=== PATIENT | male | born 1975 | race Caucasian/White ===

== ENCOUNTER 2016-08-04 07:07 | Day surgery (SDC) | payer MEDICARE ==
[2016-07-31 15:10] VITALS: BMI 33.5
[~2016-08-04 07:07] MED LIST: DEXAMETHASONE SOD PHOSPHATE 10 MG/ML 1 ML VIAL IV ONE; LACTATED RINGERS 1,000 ML IV SCH; LIDOCAINE 1% 20 ML VIAL (10MG/ML) FOR IV START INTRADERMA PRN; ONDANSETRON 4 MG/2 ML VIAL IVP ONE; Pre Op ABX Message 1 EACH MISC MISCELLANE ONE; SCOPOLAMINE 1.5MG/72HR PATCH TRANSDERM ONE
[2016-08-04 07:59] LABS: Glucose,Whole Blood 118 mg/dL (75-99)
[2016-08-04] MEDS ORDERED: BUPIVACAINE (PF) 0.25% 30 ML VIAL SQ ONE ×2 (09:06→09:27)
[2016-08-04] MEDS ORDERED: MIDAZOLAM 2 MG/2 ML VIAL IV ONE (09:08)
[2016-08-04] MEDS ORDERED: NEOSTIGMINE 1 MG/ML 10 ML VIAL ONE (09:13)
[2016-08-04] MEDS ORDERED: GLYCOPYRROLATE 0.2 MG/ML 2 ML VIAL ONE (09:13)
[2016-08-04] MEDS ORDERED: fentaNYL (PF) 50 MCG/ML 2 ML AMP ONE (09:13)
[2016-08-04] MEDS ORDERED: SUCCINYLCHOLINE CHLORIDE 100 MG/5 ML SYR IV ONE (09:13)
[2016-08-04] MEDS ORDERED: MIDAZOLAM 2 MG/2 ML VIAL ONE (09:13)
[2016-08-04] MEDS ORDERED: LIDOCAINE 1% INJ 10MG/ML (20 ML MDV) ONE (09:13)
[2016-08-04] MEDS ORDERED: HYDROmorphone (PF) 1 MG/ML ONE (09:13)
[2016-08-04] MEDS ORDERED: KETOROLAC 30 MG/ML 1 ML VIAL ONE (09:13)
[2016-08-04] MEDS ORDERED: PROPOFOL 10 MG/ML 20 ML VIAL IV ONE (09:13)
[2016-08-04] MEDS ORDERED: ROCURONIUM BROMIDE 10 MG/ML 10 ML VIAL IV ONE (09:13)
[2016-08-04] MEDS ORDERED: PHENYLEPHRINE-0.9% NACL SYG 1 MG/10 ML SYRINGE ONE (09:13)
[2016-08-04] MEDS ORDERED: SODIUM CHLORIDE 0.9% 50 ML with ceFAZolin 2,000 MG IV ONE ×2 (09:23)
[2016-08-04] MEDS ORDERED: LACTATED RINGERS 1,000 ML IV ONE (09:57)
[2016-08-04 10:26] VITALS: TEMP 97.2
[2016-08-04 10:31] LABS: Glucose,Whole Blood 171 mg/dL (75-99)
[2016-08-04 11:08] VITALS: RESP 18
[2016-08-04] MEDS: HYDROmorphone 1 MG/ML 1 ML SYRINGE IVP PRN ×2 (11:16→11:21)
[2016-08-04 13:47] VITALS: BP 122/72; PULSE 76
--- NOTE | 2016-08-17 14:22 | P.OP ---
Date of Procedure: 08/04/16 Preoperative Diagnosis: Chronic cholecystitis with biliary dyskinesia possible cholelithiasis. Postoperative Diagnosis: Same Procedure(s) Performed: Laparoscopic cholecystectomy Anesthesia: DIMITRIS Surgeon: Petr Rankin Estimated Blood Loss (ml): 10 Pathology: other (GB) Condition: stable Disposition: PACU Indications for Procedure: The patient has had multiple episodes of pain in the epigastrium and right upper quadrant with several visits she was the emergency room. Ultrasound showed echogenic foci in the gallbladder consistent with probably adherent stones or polyp. Ejection fraction of 21.8%. His symptoms were felt to be very consistent with gallbladder disease. Laparoscopic cholecystectomy possible open was therefore recommended and informed consent was obtained the procedure having being explained to him including potential complication particular bleeding infection surrounding injury pain continued symptoms etc. Operative Findings: Chronic cholecystitis with the small stones and sludge in the gallbladder. Description of Procedure: After induction of general endotracheal anesthesia the abdominal wall was prepped with Betadine and draped. Local anesthetic Marcaine 0.5% plain was infiltrated into the skin and subcutaneous tissues at the umbilical port site Veress needle was inserted under direct vision with a satisfactory saline drop test. The peritoneal cavity was then inflated with carbon dioxide to pressure approximately 15 mmHg. The needle was replaced with a 5 mm trocar and the laparoscope inserted. 25 mm trochars were placed in the right upper quadrant under direct vision 10 mm trocar in the epigastrium and under direct vision. Visual exploration revealed no other abnormalities. The gallbladder was visualized mildly distended with omental adhesions. These were lysed away. The area of the neck was carefully dissected cystic duct identified school he denies any junction with the gallbladder and common duct well visualized. The cystic duct was then triply clipped and divided as was the cystic artery. The gallbladder dissected from its bed and removed through the epigastric port site. Supernatant infrahepatic spaces were thoroughly irrigated. Hemostasis was good and the field was dry. All trochars were then removed under direct vision. CO2 was evacuated. The fascial incision at the epigastric port site was closed with interrupted 0 Vicryl sutures and skin incisions with 4-0 Monocryl subcuticular sutures and Steri-Strips dressings were applied. All counts were correct.
== END 2016-08-04 13:50 | disposition home or self-care (01) ==
LOC: OR 07:07
PROVIDERS: ATTEND Surgery
DX: K80.10 Calculus of gallbladder with chronic cholecystitis without obstruction (principal); I10 Essential (primary) hypertension; F41.9 Anxiety disorder, unspecified; E11.9 Type 2 diabetes mellitus without complications; Z79.84 Long term (current) use of oral hypoglycemic drugs; Z79.82 Long term (current) use of aspirin; Z79.51 Long term (current) use of inhaled steroids; Z79.899 Other long term (current) drug therapy; Z91.09 Other allergy status, other than to drugs and biological substances; Z88.0 Allergy status to penicillin; Z88.2 Allergy status to sulfonamides; Z91.041 Radiographic dye allergy status
CPT/HCPCS: 47562; 88304; J2250; J1100; J2710; J2405; J2001; J3010; J1885; J1170; J0690; J2370; J0330; J2704

== ENCOUNTER 2016-08-20 09:40 | Observation (INO) | payer MEDICARE ==
[2016-08-20] MEDS ORDERED: PANTOPRAZOLE 40 MG/10 ML VIAL IVP STA (09:52)
[2016-08-20] MEDS ORDERED: RX INFO: IV CONTRAST WAS GIVEN 1 EACH MISC MISCELLANE PRN (09:52)
[2016-08-20] MEDS ORDERED: HYDROmorphone 1 MG/ML 1 ML SYRINGE IVP STA ×2 (09:52→11:05)
--- NOTE | 2016-08-20 10:04 | ED ---
General Adult HPI - General Chief complaint: Chest Pain Stated complaint: chest and abd pain Time Seen by Provider: 08/20/16 09:46 Source: patient, RN notes reviewed Mode of arrival: ambulatory Limitations: no limitations - History of Present Illness Initial comments: Patient is a pleasant 41-year-old male presenting to the emergency Department with abdominal and chest discomfort. Onset was yesterday. Symptoms have progressed since that time. No nausea vomiting. No constipation or diarrhea. No fevers. Discomfort started in the right side of the abdomen however now has moved up to the chest and right arm. Patient did have his gallbladder removed 2 weeks ago and was doing fine up until last night. No history of similar symptoms previously. - Related Data Home Medications Medication Instructions Recorded Confirmed Aspirin EC [Ecotrin Low Dose] 81 mg PO HS 02/28/16 08/20/16 Cholecalciferol [Vitamin D3] 2,000 unit PO HS 02/28/16 08/20/16 Citalopram Hydrobromide [CeleXA] 40 mg PO HS 02/28/16 08/20/16 Diltiazem HCl [Diltiazem ER] 120 mg PO HS 02/28/16 08/20/16 Losartan [Cozaar] 50 mg PO HS 02/28/16 08/20/16 Montelukast [Singulair] 10 mg PO HS 02/28/16 08/20/16 Nitroglycerin Sl Tabs [Nitrostat] 0.4 mg SUBLINGUAL DIRECTED PRN 02/28/1608/05 metFORMIN HCL ER [Glucophage Xr] 500 mg PO HS 02/28/16 08/20/16 Albuterol Inhaler [Ventolin Hfa 4 puff INHALATION RT-Q6H PRN 07/31/16 08/20/16 Inhaler] Ergocalciferol [Vitamin D2] 50,000 unit PO QMONTH 07/31/16 08/20/16 Tamsulosin [Flomax] 0.4 mg PO HS 07/31/16 08/20/16 Allergies Allergy/AdvReac Type Severity Reaction Status Date / Time Iodinated Contrast Media - Allergy high BP Verified 08/20/16 10:16 Oral and Penicillins Allergy Rash/Hives Verified 08/20/16 10:16 Sulfa (Sulfonamide Allergy Unknown Verified 08/20/16 10:16 Antibiotics) Review of Systems ROS Statement: Those systems with pertinent positive or pertinent negative responses have been documented in the HPI. ROS Other: All systems not noted in ROS Statement are negative. Constitutional: Denies: fever, chills Eyes: Denies: eye pain ENT: Denies: ear pain Respiratory: Reports: dyspnea (Mild). Denies: cough Cardiovascular: Reports: chest pain. Denies: palpitations Endocrine: Denies: fatigue Gastrointestinal: Reports: abdominal pain. Denies: vomiting Genitourinary: Denies: dysuria Musculoskeletal: Denies: back pain Skin: Denies: rash Neurological: Denies: weakness Past Medical History Past Medical History: Asthma, Chest Pain / Angina, Diabetes Mellitus, Hyperlipidemia, Hypertension Additional Past Medical History / Comment(s): tachycardia, fatty liver, frequent nighttime urination History of Any Multi-Drug Resistant Organisms: None Reported Past Surgical History: Adenoidectomy, Ear Surgery, Heart Catheterization, Tonsillectomy Additional Past Surgical History / Comment(s): neck fusion, sinus surgery Past Anesthesia/Blood Transfusion Reactions: Previous Problems w/ Anesthesia, Postoperative Nausea & Vomiting (PONV) Additional Past Anesthesia/Blood Transfusion Reaction / Comment(s): aspirated and went into cardiac arrest after neck fusion surgery-anesthesia record obtained and added to chart Past Psychological History: Anxiety Smoking Status: Never smoker Past Alcohol Use History: Occasional Past Drug Use History: None Reported - Past Family History Father Family Medical History: Cancer, Deep Vein Thrombosis (DVT) Mother Family Medical History: Deep Vein Thrombosis (DVT) General Exam Limitations: no limitations General appearance: alert, in no apparent distress Head exam: Present: atraumatic Eye exam: Present: normal appearance, PERRL ENT exam: Present: normal oropharynx Neck exam: Present: normal inspection Respiratory exam: Present: normal lung sounds bilaterally. Absent: chest wall tenderness Cardiovascular Exam: Present: regular rate, normal rhythm Expanded Peripheral pulses: 2+: Dorsalis Pedis (R), Dorsalis Pedis (L) GI/Abdominal exam: Present: soft, tenderness (Mild to moderate tenderness on the right side of the abdomen), normal bowel sounds. Absent: distended, guarding, rebound, rigid, pulsatile mass Extremities exam: Present: normal inspection. Absent: pedal edema, calf tenderness Neurological exam: Present: alert Psychiatric exam: Present: normal affect, normal mood Skin exam: Absent: rash Course Vital Signs 08/20/16 08/20/16 08/20/16 09:42 10:26 11:00 Temperature 97.8 F Pulse Rate 100 90 91 Respiratory 20 17 17 Rate Blood Pressure 134/74 126/65 119/74 O2 Sat by Pulse 98 92 L 93 L Oximetry 08/20/16 11:41 Temperature Pulse Rate 85 Respiratory 17 Rate Blood Pressure 118/71 O2 Sat by Pulse 95 Oximetry EKG Findings - EKG Comments: EKG Findings:: Normal sinus rhythm and 94. Normal intervals. Normal axis. Normal QRS. Normal ST-T. Medical Decision Making - Medical Decision Making Patient reexamined and resting in bed. Symptoms have somewhat improved following second dose of pain medication. Case was discussed in detail with Dr. Daugherty, who will consult for Dr. Leyva. Case was then also discussed with Dr. Rankin, who will admit his patient. - Lab Data Result diagrams: 08/20/16 10:00 08/20/16 10:00 Lab Results 08/20/16 08/20/16 08/20/16 Range/Units 10:00 10:00 10:00 WBC 11.2 H (3.8-10.6) k/uL RBC 5.59 (4.30-5.90) m/uL Hgb 15.5 (13.0-17.5) gm/dL Hct 47.0 (39.0-53.0) % MCV 84.1 (80.0-100.0) fL MCH 27.7 (25.0-35.0) pg MCHC 33.0 (31.0-37.0) g/dL RDW 13.2 (11.5-15.5) % Plt Count 318 (150-450) k/uL Neutrophils % 58 % Lymphocytes % 32 % Monocytes % 5 % Eosinophils % 2 % Basophils % 1 % Neutrophils # 6.5 (1.3-7.7) k/uL Lymphocytes # 3.5 (1.0-4.8) k/uL Monocytes # 0.6 (0-1.0) k/uL Eosinophils # 0.3 (0-0.7) k/uL Basophils # 0.1 (0-0.2) k/uL PT (9.0-12.0) sec INR (<1.1) APTT (22.0-30.0) sec Sodium 141 (137-145) mmol/L Potassium 4.8 (3.5-5.1) mmol/L Chloride 104 (98-107) mmol/L Carbon Dioxide 25 (22-30) mmol/L Anion Gap 12 mmol/L BUN 15 (9-20) mg/dL Creatinine 0.80 (0.66-1.25) mg/dL Est GFR (MDRD) Af Amer >60 (>60 ml/min/1.73 sqM) Est GFR (MDRD) Non-Af >60 (>60 ml/min/1.73 sqM) Glucose 120 H (74-99) mg/dL Calcium 9.3 (8.4-10.2) mg/dL Total Bilirubin 0.6 (0.2-1.3) mg/dL AST 25 (17-59) U/L ALT 55 (21-72) U/L Alkaline Phosphatase 71 (38-126) U/L Total Creatine Kinase 68 (55-170) U/L CK-MB (CK-2) 0.2 (0.0-2.4) ng/mL CK-MB (CK-2) Rel Index 0.3 Troponin I <0.012 (0.000-0.034) ng/mL Total Protein 7.6 (6.3-8.2) g/dL Albumin 4.4 (3.5-5.0) g/dL Amylase 48 (30-110) U/L Lipase 83 (23-300) U/L Urine Color Urine Appearance (Clear) Urine pH (5.0-8.0) Ur Specific Ayden (1.001-1.035) Urine Protein (Negative) Urine Glucose (UA) (Negative) Urine Ketones (Negative) Urine Blood (Negative) Urine Nitrate (Negative) Urine Bilirubin (Negative) Urine Urobilinogen (<2.0) mg/dL Ur Leukocyte Esterase (Negative) 08/20/16 08/20/16 Range/Units 10:00 11:54 WBC (3.8-10.6) k/uL RBC (4.30-5.90) m/uL Hgb (13.0-17.5) gm/dL Hct (39.0-53.0) % MCV (80.0-100.0) fL MCH (25.0-35.0) pg MCHC (31.0-37.0) g/dL RDW (11.5-15.5) % Plt Count (150-450) k/uL Neutrophils % % Lymphocytes % % Monocytes % % Eosinophils % % Basophils % % Neutrophils # (1.3-7.7) k/uL Lymphocytes # (1.0-4.8) k/uL Monocytes # (0-1.0) k/uL Eosinophils # (0-0.7) k/uL Basophils # (0-0.2) k/uL PT 10.2 (9.0-12.0) sec INR 1.0 (<1.1) APTT 25.4 (22.0-30.0) sec Sodium (137-145) mmol/L Potassium (3.5-5.1) mmol/L Chloride (98-107) mmol/L Carbon Dioxide (22-30) mmol/L Anion Gap mmol/L BUN (9-20) mg/dL Creatinine (0.66-1.25) mg/dL Est GFR (MDRD) Af Amer (>60 ml/min/1.73 sqM) Est GFR (MDRD) Non-Af (>60 ml/min/1.73 sqM) Glucose (74-99) mg/dL Calcium (8.4-10.2) mg/dL Total Bilirubin (0.2-1.3) mg/dL AST (17-59) U/L ALT (21-72) U/L Alkaline Phosphatase (38-126) U/L Total Creatine Kinase (55-170) U/L CK-MB (CK-2) (0.0-2.4) ng/mL CK-MB (CK-2) Rel Index Troponin I (0.000-0.034) ng/mL Total Protein (6.3-8.2) g/dL Albumin (3.5-5.0) g/dL Amylase (30-110) U/L Lipase (23-300) U/L Urine Color Yellow Urine Appearance Clear (Clear) Urine pH 5.5 (5.0-8.0) Ur Specific Ayden >1.050 H (1.001-1.035) Urine Protein Trace H (Negative) Urine Glucose (UA) Negative (Negative) Urine Ketones Negative (Negative) Urine Blood Negative (Negative) Urine Nitrate Negative (Negative) Urine Bilirubin Negative (Negative) Urine Urobilinogen <2.0 (<2.0) mg/dL Ur Leukocyte Esterase Negative (Negative) - Radiology Data Radiology results: report reviewed (Computed tomography scan of the chest shows no acute abnormality however is nondiagnostic for pulmonary embolism secondary to contrast bolus. Computed tomography scan abdomen and pelvis does show focal enteritis or ileus.) Disposition Clinical Impression: Ileus, Chest pain Disposition: ADMITTED IP TO THIS HOSP
[2016-08-20] MEDS: SODIUM CHLORIDE 0.9% 500 ML IV STA ×2 (10:05→11:47)
[2016-08-20 10:09] LABS: Basophils # (A) 0.1 k/uL (0-0.2); Basophils % (A) 1 %; CH 28.4; CHCM 33.9; Eosinophils # (A) 0.3 k/uL (0-0.7); Eosinophils % (A) 2 %; HDW 2.54; HGB 15.5 gm/dL (13.0-17.5); Luc # (Auto) 0.24; Luc % (Auto) 2; Lymphocytes # (A) 3.5 k/uL (1.0-4.8); Lymphocytes % (A) 32 %; MCH 27.7 pg (25.0-35.0); MCV 84.1 fL (80.0-100.0); Mean Platelet Volume 6.8; Monocytes # (A) 0.6 k/uL (0-1.0); Monocytes % (A) 5 %; Neutrophils # (A) 6.5 k/uL (1.3-7.7); Neutrophils % (A) 58 %; RBC 5.59 m/uL (4.30-5.90); RDW 13.2 % (11.5-15.5); WBC 11.2 k/uL (3.8-10.6); WBC (Perox) 11.12
[2016-08-20 10:17] LABS: Partial Thromboplastin Time 25.4 sec (22.0-30.0); Prothrombin Time 10.2 sec (9.0-12.0)
[2016-08-20 10:18] LABS: ALT 55 U/L (21-72); AST 25 U/L (17-59); Alkaline Phosphatase 71 U/L (38-126); Amylase 48 U/L (30-110); Anion Gap 12 mmol/L; Blood Urea Nitrogen 15 mg/dL (9-20); Calcium 9.3 mg/dL (8.4-10.2); Carbon Dioxide 25 mmol/L (22-30); Chloride 104 mmol/L (98-107); Glucose 120 mg/dL (74-99); Non-African American GFR(MDRD) >60 (>60 ml/min/1.73 sqM); Potassium 4.8 mmol/L (3.5-5.1); Sodium 141 mmol/L (137-145); Total Bilirubin 0.6 mg/dL (0.2-1.3); Total Protein 7.6 g/dL (6.3-8.2)
[2016-08-20] MEDS ORDERED: ONDANSETRON 4 MG/2 ML VIAL IVP STA (10:28)
[2016-08-20 10:36] LABS: Creatine Kinase 68 U/L (55-170)
[2016-08-20 10:48] LABS: Creatine Kinase MB 0.2 ng/mL (0.0-2.4); Troponin I <0.012 ng/mL (0.000-0.034)
[2016-08-20] MEDS ORDERED: SODIUM CHLORIDE 0.9% 500 ML IV STA (11:05)
--- NOTE | 2016-08-20 11:11 | CT ---
EXAMINATION TYPE: CT angio chest DATE OF EXAM: 08/20/2016 10:59 AM COMPARISON: CTA chest February 25, 2012 HISTORY: SOB, chest pain, Rt sided pain, history of cholecystectomy [address] DLP: 2674 mGycm. Automated Exposure Control for Dose Reduction was Utilized. CONTRAST: CTA scan of the thorax is performed with IV Contrast, patient injected with 100 ml mL of Omnipaque 35 0, pulmonary embolism protocol. MIP Images are created on CT scanner and reviewed. FINDINGS: LUNGS: There is dependent atelectasis and/or consolidation in both lower lobes. No suspicious parench ymal nodule or mass is clearly seen bilaterally. There is no significant pleural effusion or pneumoth orax noted bilaterally. The tracheobronchial tree is patent. MEDIASTINUM: Of this is suboptimal study with contrast noted pooling in SVC and right atrium is some contrast in right ventricle as well as contrast in the left heart system and aorta but no significant amount of contrast in the main pulmonary artery and branches. Evaluation for pulmonary embolism is e ssentially nondiagnostic. There are no greater than 1 cm hilar or mediastinal lymph nodes. No cardi omegaly or pericardial effusion is seen. OTHER: Slight S-shaped scoliotic curvature is redemonstrated. IMPRESSION: 1. Essentially nondiagnostic evaluation for pulmonary embolism. 2. Low lung volumes with dependent atelectasis and/or consolidation in both lower lobes noted.
--- NOTE | 2016-08-20 11:20 | CT ---
EXAMINATION TYPE: CT abdomen pelvis w con DATE OF EXAM: 08/20/2016 10:59 AM COMPARISON: NONE HISTORY: Chest pain, Rt sided abd pain, history of cholecystectomy [address] DLP: 2674 mGycm, Automated Exposure Control for Dose Reduction was Utilized. CONTRAST: CT scan of the abdomen and pelvis is performed without oral but with IV Contrast, patient injected wi th 100 ml mL of Omnipaque 350. FINDINGS: LUNG BASES: Please refer to same day CTA chest report for complete details of lung bases. LIVER/GB: Cholecystectomy clips are noted. PANCREAS: No significant abnormality is seen. SPLEEN: No significant abnormality is seen. ADRENALS: No significant abnormality is seen. KIDNEYS: There is 1.1 cm simple appearing cyst mid pole level right kidney on coronal image 69 BOWEL: Evaluation of bowel is suboptimal due to lack of enteric contrast. There is no suspicious smal l or large bowel dilatation seen. Normal-appearing appendix is noted from the cecum. A slightly promi nent jejunal loop left midabdomen with air-fluid level is noted best on coronal image 24. Consider fo dana enteritis or ileus. PROSTATE/SEMINAL VESICLES: Seminal vesicles and prostate gland are somewhat prominent for patient's a ge. LYMPH NODES: No greater than 1cm abdominal or pelvic lymph nodes are appreciated. OSSEOUS STRUCTURES: There is disc space narrowing with posterior spur disc complex at L5-S1 level. OTHER: No significant additional abnormality is seen. IMPRESSION: Possible left mid abdominal focal enteritis or focal ileus otherwise no significant acute finding is seen to account for patient's clinical symptoms.
[2016-08-20 12:03] LABS: Appearance,Urine Clear (Clear); Bilirubin,Urine Negative (Negative); Glucose,Urine (UA) Negative (Negative); Ketones,Urine Negative (Negative); Leukocyte Esterase,Urine Negative (Negative); Nitrite,Urine Negative (Negative); PH, Urine 5.5 (5.0-8.0); Protein,Urine Trace (Negative); UA Billing (MACRO vs. MICRO) CHEM; Urobilinogen,Urine <2.0 mg/dL (<2.0)
[2016-08-20 12:35] LABS: Specific Gravity,Urine >1.050 (1.001-1.035)
[2016-08-20] MEDS ORDERED: ONDANSETRON 4 MG/2 ML VIAL IVP PRN (13:11)
[2016-08-20] MEDS ORDERED: NALOXONE 0.4 MG/ML 1 ML VIAL IV PRN (13:11)
[2016-08-20] MEDS ORDERED: SODIUM CHLORIDE 0.9% 1,000 ML IV SCH (13:15)
--- NOTE | 2016-08-20 14:25 | NM ---
EXAMINATION TYPE: NM pul vent and perfuse DATE OF EXAM: 08/20/2016 1:58 PM COMPARISON: NONE HISTORY: Dyspnea TECHNIQUE: Utilizing inhalation of 70.7 mCi Tc 99m DTPA aerosol and intravenous injection of 5.5 mCi of Tc 99m MAA, ventilation and perfusion images are acquired post injection in multiple projections. FINDINGS: Normal radiotracer distribution is noted in the lungs. There is no evidence of mismatched defects. IMPRESSION: This examination is low probability for pulmonary embolus.
[2016-08-20] MEDS: HYDROmorphone 1 MG/ML 1 ML SYRINGE IV PRN ×3 (14:29→20:17)
[2016-08-20 17:46] LABS: Creatine Kinase 54 U/L (55-170)
[2016-08-20 17:56] LABS: Creatine Kinase MB <0.2 ng/mL (0.0-2.4); Troponin I <0.012 ng/mL (0.000-0.034)
--- NOTE | 2016-08-20 18:04 | P.GSHP ---
History of Present Illness H&P Date: 08/20/16 Chief Complaint: abdominal pain The patient is a 41-year-old white male who underwent a laparoscopic cholecystectomy about 2 weeks ago. He did really well until love yesterday about 1 PM which is about the 48 hours ago that he developed pain in the right side of the abdomen that progressively worsened. It was fairly vague but increased in intensity and it radiated up to his right chest and shoulder area. Left nausea or vomiting but his appetite is diminished today. The pain is not similar to the gallbladder pain that he had prior to his surgery.. No change in his bowel movements have been fairly good daily. No urinary symptoms. No hematuria no blood in his stool. No leg pain or calf pain. Patient had a chest x-ray CT of the abdomen and pelvis which were essentially negative except for localized area ileus in the epigastric area. No free air was noted and the appendix looked normal. Nuclear part of dictation perfusion scan of the lung showed low probability of prior pulmonary embolism. Chest CTA showed was unremarkable and that it was nondiagnostic.blood work was unremarkable except for WBC of 11,200. Amylase and lipase were normal. Urinalysis was normal. Hemoglobin was good. LFTs were normal. Past history well documented on recent the admission. Positive for angina cardiac disease chest pain and hypertension asthma and bronchitis diabetes mellitus. Medications as listed. ALLERGIES oral contrast the iodine contained. Penicillins and sulfa drugs. Review of systems as above. On examination patient is well-built well-nourished overweight with a BMI of 33.2. He is afebrile. Somewhat restless. Hydration and color good he is anicteric. Head and neck otherwise normal. Heart regular rhythm no murmurs. Lungs are clear. Abdomen shows well-healed the trocar sites. Mild distention but somewhat overweight. Easy to evaluate. Some tenderness in the right side of the abdomen some voluntary guarding but no rebound or rigidity. No mass or organomegaly or hernias noted. No testicular swelling. Extremities normal. tenderness. [employer] intact. Impression right-sided abdominal pain etiology unclear. Localized ileus doubt appendicitis in particular and draped in normal appendix on computed tomography scan. No evidence of perforated viscus with no free air. Medical issues including history of angina asthma and diabetes. Recommendation patient will be admitted for observation placed on IV fluids and close monitoring. We will repeat abdominal films in the morning. 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 Past Anesthesia/Blood Transfusion Reactions: Previous Problems w/ Anesthesia, Postoperative Nausea & Vomiting (PONV) Additional Past Anesthesia/Blood Transfusion Reaction / Comment(s): aspirated and went into cardiac arrest after neck fusion surgery-anesthesia record obtained and added to chart Past Psychological History: Anxiety Additional Psychological History / Comment(s): Pt resides with his spouse. He has 3 children and a grandson living with them. His grandson has a rare form of cancer. He uses a cane at times due to his blindness and has a service dog. Smoking Status: Never smoker Past Alcohol Use History: Occasional Past Drug Use History: None Reported - Past Family History Father Family Medical History: Cancer, Deep Vein Thrombosis (DVT) Mother Family Medical History: Deep Vein Thrombosis (DVT) Medications and Allergies Home Medications Medication Instructions Recorded Confirmed Type Aspirin EC [Ecotrin Low Dose] 81 mg PO HS 02/28/16 08/20/16 History Cholecalciferol [Vitamin D3] 2,000 unit PO HS 02/28/16 08/20/16 History Citalopram Hydrobromide [CeleXA] 40 mg PO HS 02/28/16 08/20/16 History Diltiazem HCl [Diltiazem ER] 120 mg PO HS 02/28/16 08/20/16 History Losartan [Cozaar] 50 mg PO HS 02/28/16 08/20/16 History Montelukast [Singulair] 10 mg PO HS 02/28/16 08/20/16 History Nitroglycerin Sl Tabs [Nitrostat] 0.4 mg SUBLINGUAL DIRECTED PRN 02/28/1608/05 History metFORMIN HCL ER [Glucophage Xr] 500 mg PO HS 02/28/16 08/20/16 History Albuterol Inhaler [Ventolin Hfa 4 puff INHALATION RT-Q6H PRN 07/31/16 08/20/16 History Inhaler] Ergocalciferol [Vitamin D2] 50,000 unit PO QMONTH 07/31/16 08/20/16 History Tamsulosin [Flomax] 0.4 mg PO HS 07/31/16 08/20/16 History Allergies Allergy/AdvReac Type Severity Reaction Status Date / Time Iodinated Contrast Media - Allergy high BP Verified 08/20/16 10:16 Oral and Penicillins Allergy Rash/Hives Verified 08/20/16 10:16 Sulfa (Sulfonamide Allergy Unknown Verified 08/20/16 10:16 Antibiotics) Surgical - Exam Vital Signs Temp Pulse Resp BP Pulse Ox 97.8 F 100 20 134/74 98 08/20/16 09:42 08/20/16 09:42 08/20/16 09:42 08/20/16 09:42 08/20/16 09:42 Results - Labs 08/20/16 10:00 08/20/16 10:00 Abnormal Lab Results - Last 24 Hours (Table) 08/20/16 Range/Units 17:04 Total Creatine Kinase 54 L (55-170) U/L
[2016-08-20] MEDS ORDERED: ALBUTEROL NEBULIZED 2.5 MG/3 ML INHALATION PRN (20:11)
[2016-08-20] MEDS ORDERED: NITROGLYCERIN SL TABS 0.4 MG TAB SUBLINGUAL PRN (20:11)
--- NOTE | 2016-08-20 20:42 | P.CONS ---
History of Present Illness - Reason for Consult Consult date: 08/20/16 Medical management Requesting physician: Petr Rankin - Chief Complaint Abdominal pain/post lap cholecystectomy - History of Present Illness This is a 41-year-old male one of Dr. Leyva with a previous medical history significant for hypertension and hypertensive cardio vascular disease with left ventricular hypertrophy, history of chest pain/angina, diabetes mellitus type 2, hyperlipidemia, retinitis pigmentosa with legal blindness about 16 years ago, obesity with obstructive sleep apnea, esophageal spasm, H. pylori, neurological tremor, fatty liver, patient underwent laparoscopic cholecystectomy that was done by Dr. Rankin on 08/04/2016 that was uneventful and the patient went home patient stated that he has been complaining of increased right lower quadrant abdominal pain that started on the day before yesterday , and now the pain felt as a tightness in his chest with into the right shoulder and all the way to the back associated with some shortness breath , [facility] that was negative for pulmonary embolism, patient had a computed tomography scan of the abdomen and pelvis that showed a mild ileus with no evidence of any appendicitis or perforation, patient was seen and evaluated by Dr. Rankin he was admitted under general surgery service and we were asked to see the patient for medical management. His EKG showed sinus rhythm with nonspecific ST-T wave changes, cardiac enzymes were negative, patient has been seen in the past by cardiology and he sees Dr. Mills regularly, patient did have a stress test prior to her surgical intervention and he did have a heart catheterization about 2013 that was negative for CAD. Review of Systems Constitutional: Denies anorexia, Denies chronic headaches, Denies lethargy, Denies weakness, Denies weight gain, Denies weight loss Eyes: bilateral loss of vision Ears: deny: decreased hearing Ears, nose, mouth and throat: Denies dysphagia, Denies neck lump Cardiovascular: Reports chest pain, Reports high blood pressure, Denies dyspnea on exertion, Denies edema, Denies paroxysmal nocturnal dyspnea, Denies phlebitis , Denies rapid heart beat, Denies shortness of breath, Denies syncope Respiratory: Reports pleurisy, Reports sleep apnea, Denies congestion, Denies cough, Denies cough with sputum, Denies home oxygen, Denies snoring, Denies wheezing Gastrointestinal: Reports abdominal pain, Reports bloating, Reports diarrhea, Reports excessive gas, Reports nausea, Denies heartburn, Denies hematemesis, Denies jaundice, Denies loss of appetite, Denies melena, Denies vomiting Genitourinary: Denies dysuria, Denies nocturia, Denies testicular lump Musculoskeletal: Denies myalgias Musculoskeletal: absent: ankle pain, ankle stiffness, ankle swelling, elbow pain , elbow stiffness, elbow swelling, foot pain, foot stiffness, foot swelling, hand pain, hand stiffness, hand swelling, hip pain, hip stiffness, hip swelling , knee pain, knee stiffness, knee swelling, shoulder pain, shoulder stiffness, shoulder swelling, wrist pain, wrist stiffness, wrist swelling Integumentary: Denies pruritus, Denies rash Neurological: Denies numbness, Denies weakness Psychiatric: Denies anxiety, Denies depression Endocrine: Denies fatigue, Denies weight change Past Medical History Past Medical History: Asthma, Chest Pain / Angina, Diabetes Mellitus, GERD/ Reflux, Hyperlipidemia, Hypertension, Musculoskeletal Disorder, Neurologic Disorder, Pneumonia Additional Past Medical History / Comment(s): Blind bilaterally (sees light only ) x-link retinitis pigmatosis, tachycardia, NIDDM type II, BRAIN-first time using Cpap 08/19/16, esophageal spasms, past H pylori, neurologic tremors, fatty liver , frequent night time urination, sinus problems History of Any Multi-Drug Resistant Organisms: None Reported Past Surgical History: Adenoidectomy, Cholecystectomy, Ear Surgery, Heart Catheterization, Tonsillectomy Additional Past Surgical History / Comment(s): 08/04/16 lap cholecystectomy, cervical fusion C6-C7, sinus surgery, EGD, cardiac cath without intervention. Past Anesthesia/Blood Transfusion Reactions: Previous Problems w/ Anesthesia, Postoperative Nausea & Vomiting (PONV) Additional Past Anesthesia/Blood Transfusion Reaction / Comm: aspirated and went into cardiac arrest after neck fusion surgery-anesthesia record obtained and added to chart Past Psychological History: Anxiety Additional Psychological History / Comment(s): Pt resides with his spouse. He has 3 children and a grandson living with them. His grandson has a rare form of cancer. He uses a cane at times due to his blindness and has a service dog. Smoking Status: Never smoker Past Alcohol Use History: Occasional Past Drug Use History: None Reported - Past Family History Father Family Medical History: Cancer, Diabetes Mellitus (Father is alive his 72-year- old has history of diabetes, CABG, post kidney transplant.), Deep Vein Thrombosis (DVT) Mother Family Medical History: Diabetes Mellitus (Mother 70-year-old has history of diabetes but is type II. She also has history of DVT.), Deep Vein Thrombosis ( DVT) Brother(s) Family Medical History: No Reported History (Patient has one brother no major medical problems) Sister(s) Family Medical History: No Reported History (Patient has 2 sisters no major medical problems) Daughter(s) Family Medical History: No Reported History (Patient has 2 daughters no major medical problems) Son(s) Family Medical History: No Reported History (Patient has 2 sons no major medical problems) Medications and Allergies Home Medications Medication Instructions Recorded Confirmed Type Aspirin EC [Ecotrin Low Dose] 81 mg PO HS 02/28/16 08/20/16 History Cholecalciferol [Vitamin D3] 2,000 unit PO HS 02/28/16 08/20/16 History Citalopram Hydrobromide [CeleXA] 40 mg PO HS 02/28/16 08/20/16 History Diltiazem HCl [Diltiazem ER] 120 mg PO HS 02/28/16 08/20/16 History Losartan [Cozaar] 50 mg PO HS 02/28/16 08/20/16 History Montelukast [Singulair] 10 mg PO HS 02/28/16 08/20/16 History Nitroglycerin Sl Tabs [Nitrostat] 0.4 mg SUBLINGUAL DIRECTED PRN 02/28/1608/05 History metFORMIN HCL ER [Glucophage Xr] 500 mg PO HS 02/28/16 08/20/16 History Albuterol Inhaler [Ventolin Hfa 4 puff INHALATION RT-Q6H PRN 07/31/16 08/20/16 History Inhaler] Ergocalciferol [Vitamin D2] 50,000 unit PO QMONTH 07/31/16 08/20/16 History Tamsulosin [Flomax] 0.4 mg PO HS 07/31/16 08/20/16 History Allergies Allergy/AdvReac Type Severity Reaction Status Date / Time Iodinated Contrast Media - Allergy high BP Verified 08/20/16 10:16 Oral and Penicillins Allergy Rash/Hives Verified 08/20/16 10:16 Sulfa (Sulfonamide Allergy Unknown Verified 08/20/16 10:16 Antibiotics) Physical Exam Vitals: Vital Signs Temp Pulse Pulse Resp BP BP Pulse Ox 08/20/16 18:38 18 08/20/16 18:15 98.4 F 77 18 133/79 95 08/20/16 18:00 97.5 F L 81 18 138/82 96 08/20/16 17:00 97.0 F L 92 18 141/91 96 08/20/16 16:00 18 96 08/20/16 14:00 91 20 125/82 96 Intake and Output 08/20/16 08/20/16 08/20/16 06:59 14:59 22:59 Other: Weight 111.9 kg Patient Weight 08/21/16 06:59 Weight 111.9 kg - Constitutional General appearance: mild distress, obese - EENT Eyes: anicteric sclerae, PERRLA, no ptosis, no scleral icterus ENT: normal oropharynx, no thrush Ears: bilateral: normal - Neck Neck: no lymphadenopathy, normal ROM, no rigidity, no stridor, no thyromegaly Carotids: bilateral: upstroke normal Thyroid: bilateral: normal size - Respiratory Respiratory: bilateral: diminished, negative: dullness, rales, rhonchi, wheezing , prolonged expiration - Cardiovascular Rhythm: regular Heart sounds: normal: S1, S2 Abnormal Heart Sounds: no systolic murmur, no rub, no S3 Gallop, no S4 Gallop, no click - Gastrointestinal General gastrointestinal: normal bowel sounds, soft, tenderness, umbilical hernia, no ventral hernia - Integumentary Integumentary: normal, normal turgor - Musculoskeletal Musculoskeletal: gait normal - Psychiatric Psychiatric: A&O x's 3, appropriate affect, intact judgment & insight Results CBC & Chem 7: 08/20/16 10:00 08/20/16 10:00 Labs: Abnormal Lab Results - Last 24 Hours (Table) 08/20/16 Range/Units 17:04 Total Creatine Kinase 54 L (55-170) U/L Assessment and Plan Plan: Assessment and plan: 1. Abdominal pain/chest pain. Patient had a battery of tests including CT angiography as well as CT abdomen and pelvis did not show an evidence of any acute PE or any acute abscess there is an evidence of minimal ileus post surgery without any evidence of any fluid collection, start the patient on clear liquid diet, continue IV fluid, continue pain management, general surgery evaluation, cardiology evaluation. 2. Post recent laparoscopic cholecystectomy on 08/04/2016. Patient was seen by Dr. Rankin. 3. Hypertension and hypertensive cardiovascular disease. Continue patient on losartan 50 mg orally once every day, Cardizem CD 120 mg orally once every day. 4. Hyperlipidemia. Stable. 5. Diabetes mellitus type 2. Hold metformin for the next 48 hours. Continue sliding scale insulin. 6. History of retinitis pigmentosa. Patient is legally blind 7. Obesity with obstructive sleep apnea. Continue CPAP. 8. Fatty liver. Stable 9. GERD. Continue patient on Protonix 40 mg IV every [address] you [address] Rankin for allowing me to participate in the care of your patient we will follow the patient with you.
[2016-08-20] MEDS ORDERED: ERGOCALCIFEROL 50,000 UNIT CAP PO SCH (21:00)
[2016-08-20 21:53] LABS: Glucose,Whole Blood 89 mg/dL (75-99)
[2016-08-20] MEDS: CITALOPRAM HYDROBROMIDE 20 MG TAB PO SCH (22:22)
[2016-08-20] MEDS: CHOLECALCIFEROL 1,000 UNIT TAB PO SCH (22:23)
[2016-08-20] MEDS: TAMSULOSIN 0.4 MG CAP.ER.24H PO SCH (22:25)
[2016-08-20] MEDS: LOSARTAN 50 MG TAB PO SCH (22:25)
[2016-08-20] MEDS: DILTIAZEM CD 120 MG CAP.ER.24H PO SCH (22:26)
[2016-08-20] MEDS: MONTELUKAST 10 MG TAB PO SCH (22:26)
[2016-08-20] MEDS: ASPIRIN 81 MG CHEW PO SCH (22:26)
[2016-08-20 23:01] LABS: Creatine Kinase 56 U/L (55-170)
[2016-08-20 23:11] LABS: Creatine Kinase MB 0.2 ng/mL (0.0-2.4); Troponin I <0.012 ng/mL (0.000-0.034)
[2016-08-21] MEDS: HYDROmorphone 1 MG/ML 1 ML SYRINGE IV PRN ×7 (00:27→22:18)
[2016-08-21 06:53] LABS: Glucose,Whole Blood 115 mg/dL (75-99)
[2016-08-21 08:14] LABS: Basophils # (A) 0.2 k/uL (0-0.2); Basophils % (A) 2 %; CH 28.3; CHCM 33.2; Eosinophils # (A) 0.2 k/uL (0-0.7); Eosinophils % (A) 2 %; HCT 42.5 % (39.0-53.0); HDW 2.58; Luc # (Auto) 0.18; Luc % (Auto) 2; Lymphocytes # (A) 3.3 k/uL (1.0-4.8); Lymphocytes % (A) 32 %; MCH 28.3 pg (25.0-35.0); MCV 85.7 fL (80.0-100.0); Mean Platelet Volume 7.4; Monocytes # (A) 0.7 k/uL (0-1.0); Monocytes % (A) 6 %; Neutrophils # (A) 5.9 k/uL (1.3-7.7); Neutrophils % (A) 57 %; RBC 4.96 m/uL (4.30-5.90); RDW 13.2 % (11.5-15.5); WBC 10.4 k/uL (3.8-10.6); WBC (Perox) 10.49
[2016-08-21] MEDS: PANTOPRAZOLE 40 MG/10 ML VIAL IV SCH (08:24)
[2016-08-21 08:25] LABS: ALT 53 U/L (21-72); AST 19 U/L (17-59); Alkaline Phosphatase 67 U/L (38-126); Anion Gap 9 mmol/L; Blood Urea Nitrogen 9 mg/dL (9-20); Carbon Dioxide 29 mmol/L (22-30); Chloride 101 mmol/L (98-107); Glucose 108 mg/dL (74-99); Non-African American GFR(MDRD) >60 (>60 ml/min/1.73 sqM); Potassium 4.2 mmol/L (3.5-5.1); Sodium 139 mmol/L (137-145); Total Bilirubin 0.7 mg/dL (0.2-1.3); Total Protein 6.7 g/dL (6.3-8.2)
--- NOTE | 2016-08-21 08:57 | XR ---
EXAMINATION TYPE: XR abdomen complete w decub DATE OF EXAM: 08/21/2016 7:29 AM COMPARISON: Correlation CT 08/20/2016 HISTORY: 41 year-old male right upper quadrant abdominal pain TECHNIQUE: Single view of the chest and 2 views of the abdomen are submitted. FINDINGS: Cholecystectomy clips are present. No evidence for free intraperitoneal air. No differential air-fluid levels or bowel dilatation. Scattered mild to moderate stool within the col on. No suspicious calcifications are seen. Air is seen extending distally into the rectum. IMPRESSION: Nonobstructive bowel gas pattern. No free air. Mild to moderate scattered stool.
[2016-08-21 12:26] LABS: Glucose,Whole Blood 94 mg/dL (75-99)
[2016-08-21] MEDS ORDERED: BISACODYL 10 MG SUPP RECTAL STA (13:01)
--- NOTE | 2016-08-21 13:12 | P.PN ---
Progress Note - Text The patient is stable. Continues to have pain but more so in the chest now. The pain is also in the right upper quadrant radiates up the right chest wall to the shoulder area as well as in the mid chest area. The area of the pain is a lot worse with deep breathing or coughing. He has no appetite. He is afraid to eat. Eating seems to aggravate the pain as well. He thinks he has passed some flatus but no bowel movement since his admission. Denies nausea or vomiting however. On examination the patient remains afebrile. Vitals are stable. Color and hydration is satisfactory. His abdomen is a lot less tender quite soft especially in the right upper quadrant. No guarding or rebound. No mass or organomegaly noted. His abdomen is quite soft with mild tenderness but no guarding or rebound no mass or organomegaly. No evidence of an acute abdomen. The wbc's normal hemoglobin is normal. The LFTs are normal. Amylase and lipase are normal. The abdominal x-ray shows a moderate amount of stool in his colon. No small or large bowel distention or air-fluid levels of significance. No evidence of ileus. No free air. Impression right chest and right upper quadrant pain etiology undetermined. Continues to take analgesics [id number] I will seems to help control the symptoms. No evidence of free air or perforation to explain his symptoms. No significant pulmonary problems identified the although he is symptoms are concerning in that he seems to have a lot of pain with deep breaths. Possible fecal stasis. Recommendation we'll obtain pulmonary consult. Advance diet. Dulcolax suppository. Continue to observe. In view of the continued intractable pain.
[2016-08-21 14:26] VITALS: BMI 33.4
[2016-08-21 17:09] LABS: Glucose,Whole Blood 121 mg/dL (75-99)
--- NOTE | 2016-08-21 17:40 | P.CNPUL ---
History of Present Illness Consult date: 08/21/16 Reason for consult: chest pain Chief complaint: chest pain History of present illness: This is a 41-year-old male who presented to the emergency department complaining of chest pain. The patient underwent laparoscopic cholecystectomy 2 weeks ago. He states he was feeling fine until about 2 days ago when he began having pain in the right side of his abdomen and chest. He states it hurts when he takes a deep breath. He also has pain to palpation. The patient was recently diagnosed with obstructive sleep apnea and is on CPAP therapy. Review of Systems All systems: negative Past Medical History Past Medical History: Asthma, Chest Pain / Angina, Diabetes Mellitus, GERD/ Reflux, Hyperlipidemia, Hypertension, Musculoskeletal Disorder, Neurologic Disorder, Pneumonia Additional Past Medical History / Comment(s): Blind bilaterally (sees light only ) x-link retinitis pigmatosis, tachycardia, NIDDM type II, BRAIN-first time using Cpap 08/19/16, esophageal spasms, past H pylori, neurologic tremors, fatty liver , frequent night time urination, sinus problems History of Any Multi-Drug Resistant Organisms: None Reported Past Surgical History: Adenoidectomy, Cholecystectomy, Ear Surgery, Heart Catheterization, Tonsillectomy Additional Past Surgical History / Comment(s): 08/04/16 lap cholecystectomy, cervical fusion C6-C7, sinus surgery, EGD, cardiac cath without intervention. Past Anesthesia/Blood Transfusion Reactions: Previous Problems w/ Anesthesia, Postoperative Nausea & Vomiting (PONV) Additional Past Anesthesia/Blood Transfusion Reaction / Comment(s): aspirated and went into cardiac arrest after neck fusion surgery-anesthesia record obtained and added to chart Past Psychological History: Anxiety Additional Psychological History / Comment(s): Pt resides with his spouse. He has 3 children and a grandson living with them. His grandson has a rare form of cancer. He uses a cane at times due to his blindness and has a service dog. Smoking Status: Never smoker Past Alcohol Use History: Occasional Past Drug Use History: None Reported - Past Family History Father Family Medical History: Cancer, Diabetes Mellitus (Father is alive his 72-year- old has history of diabetes, CABG, post kidney transplant.), Deep Vein Thrombosis (DVT) Mother Family Medical History: Diabetes Mellitus (Mother 70-year-old has history of diabetes but is type II. She also has history of DVT.), Deep Vein Thrombosis ( DVT) Brother(s) Family Medical History: No Reported History (Patient has one brother no major medical problems) Sister(s) Family Medical History: No Reported History (Patient has 2 sisters no major medical problems) Daughter(s) Family Medical History: No Reported History (Patient has 2 daughters no major medical problems) Son(s) Family Medical History: No Reported History (Patient has 2 sons no major medical problems) Medications and Allergies Home Medications Medication Instructions Recorded Confirmed Type Aspirin EC [Ecotrin Low Dose] 81 mg PO HS 02/28/16 08/20/16 History Cholecalciferol [Vitamin D3] 2,000 unit PO HS 02/28/16 08/20/16 History Citalopram Hydrobromide [CeleXA] 40 mg PO HS 02/28/16 08/20/16 History Diltiazem HCl [Diltiazem ER] 120 mg PO HS 02/28/16 08/20/16 History Losartan [Cozaar] 50 mg PO HS 02/28/16 08/20/16 History Montelukast [Singulair] 10 mg PO HS 02/28/16 08/20/16 History Nitroglycerin Sl Tabs [Nitrostat] 0.4 mg SUBLINGUAL DIRECTED PRN 02/28/1608/05 History metFORMIN HCL ER [Glucophage Xr] 500 mg PO HS 02/28/16 08/20/16 History Albuterol Inhaler [Ventolin Hfa 4 puff INHALATION RT-Q6H PRN 07/31/16 08/20/16 History Inhaler] Ergocalciferol [Vitamin D2] 50,000 unit PO QMONTH 07/31/16 08/20/16 History Tamsulosin [Flomax] 0.4 mg PO HS 07/31/16 08/20/16 History Allergies Allergy/AdvReac Type Severity Reaction Status Date / Time Iodinated Contrast Media - Allergy high BP Verified 08/20/16 10:16 Oral and Penicillins Allergy Rash/Hives Verified 08/20/16 10:16 Sulfa (Sulfonamide Allergy Unknown Verified 08/20/16 10:16 Antibiotics) Physical Exam Osteopathic Statement: *. No significant issues noted on an osteopathic structural exam other than those noted in the History and Physical/Consult. Vitals: Vital Signs Temp Pulse Pulse Resp BP BP Pulse Ox 08/21/16 16:00 99.0 F 73 16 117/74 93 L 08/21/16 12:00 98.7 F 69 18 144/69 93 L 08/21/16 08:00 98.6 F 76 18 110/71 93 L 08/21/16 04:00 85 16 108/86 95 08/21/16 00:00 93 16 129/80 98 08/20/16 20:00 77 16 08/20/16 18:38 18 08/20/16 18:15 98.4 F 77 18 133/79 95 08/20/16 18:00 97.5 F L 81 18 138/82 96 Intake and Output 08/21/16 08/21/16 08/21/16 06:59 14:59 22:59 Intake Total 364 Balance 364 Intake: Oral 364 Other: Voiding Method Toilet Toilet # Voids 1 1 Weight 111.9 kg 111.9 kg Patient Weight 08/22/16 06:59 Weight 111.9 kg Gen.: Patient is alert and oriented 3, no acute distress Cardiovascular: Regular rate and rhythm, S1/S2 Lungs: Clear to auscultation bilaterally no wheezes rales or rhonchi Abdomen: Soft nontender nondistended positive bowel sounds Extremities: No edema Results - Laboratory Findings CBC and BMP: 08/21/16 07:35 08/21/16 07:33 PT/INR, D-dimer PT 10.2 sec (9.0-12.0) 08/20/16 10:00 INR 1.0 (<1.1) 08/20/16 10:00 Abnormal lab findings: Abnormal Labs 08/20/16 08/21/16 08/21/16 17:04 06:52 07:33 Glucose 108 H POC Glucose (mg/dL) 115 H Total Creatine Kinase 54 L 08/21/16 17:06 Glucose POC Glucose (mg/dL) 121 H Total Creatine Kinase - Diagnostic Findings Chest x-ray: report reviewed, image reviewed CT scan - chest: report reviewed, image reviewed Assessment and Plan Plan: Acute chest and abdominal pain, etiology unclear No evidence of pulmonary embolism Possible pleuritic chest pain Bibasilar atelectasis Obstructive sleep apnea, on CPAP therapy Recent lap is A cholecystectomy Hypertension Hypertensive cardiovascular disease Dyslipidemia Diabetes mellitus type 2 History of retinitis pigmentosa Obesity Fatty liver disease GERD No evidence of pulmonary embolism, no need for anticoagulation from pulmonary standpoint Will try prednisone for possible pleuritic-type pain Pain control IV fluid hydration Patient to bring in CPAP from home Continue Singulair Albuterol as needed GI and DVT prophylaxis Incentive spirometry, pulmonary hygiene
[2016-08-21] MEDS: predniSONE 20 MG TAB PO SCH (18:05)
[2016-08-21] MEDS: HEPARIN SODIUM,PORCINE 5,000 UNIT/ML 1 ML VIAL SQ SCH ×2 (18:05→22:18)
[2016-08-21 20:16] LABS: Glucose,Whole Blood 117 mg/dL (75-99)
[2016-08-21] MEDS: CHOLECALCIFEROL 1,000 UNIT TAB PO SCH (20:29)
[2016-08-21] MEDS: CITALOPRAM HYDROBROMIDE 20 MG TAB PO SCH (20:30)
[2016-08-21] MEDS: ASPIRIN 81 MG CHEW PO SCH (20:30)
[2016-08-21] MEDS: MONTELUKAST 10 MG TAB PO SCH (20:31)
[2016-08-21] MEDS: TAMSULOSIN 0.4 MG CAP.ER.24H PO SCH (20:31)
[2016-08-21] MEDS: LOSARTAN 50 MG TAB PO SCH (20:31)
[2016-08-21] MEDS: DILTIAZEM CD 120 MG CAP.ER.24H PO SCH (20:31)
[2016-08-22 07:09] LABS: Glucose,Whole Blood 119 mg/dL (75-99)
[2016-08-22 07:45] VITALS: BP 110/69; PULSE 81; RESP 16; TEMP 98.2
[2016-08-22] MEDS: PANTOPRAZOLE 40 MG/10 ML VIAL IV SCH (09:06)
[2016-08-22] MEDS: HEPARIN SODIUM,PORCINE 5,000 UNIT/ML 1 ML VIAL SQ SCH (09:06)
[2016-08-22] MEDS: predniSONE 20 MG TAB PO SCH (09:07)
[2016-08-22] MEDS: HYDROmorphone 1 MG/ML 1 ML SYRINGE IV PRN (10:37)
--- NOTE | 2016-08-22 11:54 | P.PN ---
Subjective This is a 41-year-old male one of Dr. Leyva with a previous medical history significant for hypertension and hypertensive cardio vascular disease with left ventricular hypertrophy, history of chest pain/angina, diabetes mellitus type 2, hyperlipidemia, retinitis pigmentosa with legal blindness about 16 years ago, obesity with obstructive sleep apnea, esophageal spasm, H. pylori, neurological tremor, fatty liver, patient underwent laparoscopic cholecystectomy that was done by Dr. Rankin on 08/04/2016 that was uneventful and the patient went home patient stated that he has been complaining of increased right lower quadrant abdominal pain that started on the day before yesterday , and now the pain felt as a tightness in his chest with into the right shoulder and all the way to the back associated with some shortness breath , [facility] that was negative for pulmonary embolism, patient had a computed tomography scan of the abdomen and pelvis that showed a mild ileus with no evidence of any appendicitis or perforation, patient was seen and evaluated by Dr. Rankin he was admitted under general surgery service and we were asked to see the patient for medical management. His EKG showed sinus rhythm with nonspecific ST-T wave changes, cardiac enzymes were negative, patient has been seen in the past by cardiology and he sees Dr. Mills regularly, patient did have a stress test prior to her surgical intervention and he did have a heart catheterization about 2013 that was negative for CAD. 2/: Patient continues to complain of chest pain most severe with deep inspiration. He states he is not any better since he arrived. Consult added for Dr. Rodríguez. Troponins have been negative on 3 draws. Objective - Vital Signs Vital signs: Vital Signs Temp 98.7 F 08/21/16 12:00 Pulse 69 08/21/16 12:00 Resp 18 08/21/16 12:00 BP 144/69 08/21/16 12:00 Pulse Ox 93 L 08/21/16 12:00 Intake & Output 08/20/16 08/21/16 08/21/16 18:59 06:59 18:59 Weight 111.9 kg 111.9 kg Other: Voiding Method Toilet # Voids 1 - Exam General appearance: mild distress, obese - EENT Eyes: anicteric sclerae, PERRLA, no ptosis, no scleral icterus ENT: normal oropharynx, no thrush Ears: bilateral: normal - Neck Neck: no lymphadenopathy, normal ROM, no rigidity, no stridor, no thyromegaly Carotids: bilateral: upstroke normal Thyroid: bilateral: normal size - Respiratory Respiratory: bilateral: diminished, negative: dullness, rales, rhonchi, wheezing , prolonged expiration - Cardiovascular Rhythm: regular Heart sounds: normal: S1, S2 Abnormal Heart Sounds: no systolic murmur, no rub, no S3 Gallop, no S4 Gallop, no click - Gastrointestinal General gastrointestinal: normal bowel sounds, soft, tenderness, umbilical hernia, no ventral hernia - Integumentary Integumentary: normal, normal turgor - Musculoskeletal Musculoskeletal: gait normal - Psychiatric Psychiatric: A&O x's 3, appropriate affect, intact judgment & insight - Labs CBC & Chem 7: 08/21/16 07:35 08/21/16 07:33 Labs: Abnormal Lab Results - Last 24 Hours (Table) 08/20/16 08/21/16 08/21/16 Range/Units 17:04 06:52 07:33 Glucose 108 H (74-99) mg/dL POC Glucose (mg/dL) 115 H (75-99) mg/dL Total Creatine Kinase 54 L (55-170) U/L Assessment and Plan Plan: 1. Abdominal pain and chest pain. Patient had a battery of tests including CT angiography as well as CT abdomen and pelvis did not show an evidence of any acute PE or any acute abscess there is an evidence of minimal ileus post surgery without any evidence of any fluid collection, start the patient on clear liquid diet, continue IV fluid, continue pain management, general surgery evaluation, cardiology evaluation. Consult with Dr. Rodríguez added. 2. Post recent laparoscopic cholecystectomy on 08/04/2016. Patient was seen by Dr. Rankin. 3. Hypertension and hypertensive cardiovascular disease. Continue patient on losartan 50 mg orally once every day, Cardizem CD 120 mg orally once every day. 4. Hyperlipidemia. Stable. 5. Diabetes mellitus type 2. Hold metformin for the next 48 hours. Continue sliding scale insulin. 6. History of retinitis pigmentosa. Patient is legally blind 7. Obesity with obstructive sleep apnea. Continue CPAP. 8. Fatty liver. Stable 9. GERD. Continue patient on Protonix 40 mg IV every 24 hours. Discharge plan: Return home Impression and plan of care have been directed as dictated by the signing physician. Dary Butler nurse practitioner acting as scribe for signing physician. Time with Patient: Greater than 30
--- NOTE | 2016-08-22 16:10 | P.PN ---
Subjective Principal diagnosis: Chest pain Patient seen and examined. Patient states he is feeling much better today. His chest pain and abdominal pain are better. He states his breathing is good. Objective - Vital Signs Vital signs: Vital Signs Temp 98.2 F 08/22/16 07:43 Pulse 81 08/22/16 08:00 Resp 16 08/22/16 08:00 BP 110/69 08/22/16 07:43 Pulse Ox 95 08/22/16 07:43 Intake & Output 08/21/16 08/22/16 08/22/16 18:59 06:59 18:59 Intake Total 364 Balance 364 Weight 111.9 kg Intake: Oral 364 Other: Voiding Method Toilet Toilet Toilet # Voids 1 1 2 - Exam Gen.: Patient is alert and oriented 3, no acute distress Cardiovascular: Regular rate and rhythm, S1/S2 Lungs: Clear to auscultation bilaterally no wheezes rales or rhonchi Abdomen: Soft nontender nondistended positive bowel sounds Extremities: No edema - Labs CBC & Chem 7: 08/21/16 07:35 08/21/16 07:33 Labs: Abnormal Lab Results - Last 24 Hours (Table) 08/21/16 08/21/16 08/22/16 Range/Units 17:06 20:05 07:07 POC Glucose (mg/dL) 121 H 117 H 119 H (75-99) mg/dL Assessment and Plan Plan: Acute chest and abdominal pain, etiology unclear No evidence of pulmonary embolism Possible pleuritic chest pain Bibasilar atelectasis Obstructive sleep apnea, on CPAP therapy Recent lap is A cholecystectomy Hypertension Hypertensive cardiovascular disease Dyslipidemia Diabetes mellitus type 2 History of retinitis pigmentosa Obesity Fatty liver disease GERD No evidence of pulmonary embolism, no need for anticoagulation from pulmonary standpoint Will try prednisone for possible pleuritic-type pain Pain control IV fluid hydration Patient to bring in CPAP from home Continue Singulair Albuterol as needed GI and DVT prophylaxis Incentive spirometry, pulmonary hygiene Continue Prednisone 20mg daily x 7 days OK to DC from pulmonary standpoint.
--- NOTE | 2016-09-07 10:05 | P.DS ---
Providers Date of admission: 08/20/16 13:11 Attending physician: Petr Rankin Consults: Dr. Daugherty and Dr. Barrett Primary care physician: Gil Leyva Plan - Discharge Summary Discharge Medication List Aspirin EC [Ecotrin Low Dose] 81 mg PO HS 02/28/16 [History] Cholecalciferol [Vitamin D3] 2,000 unit PO HS 02/28/16 [History] Citalopram Hydrobromide [CeleXA] 40 mg PO HS 02/28/16 [History] Diltiazem HCl [Diltiazem ER] 120 mg PO HS 02/28/16 [History] Losartan [Cozaar] 50 mg PO HS 02/28/16 [History] Montelukast [Singulair] 10 mg PO HS 02/28/16 [History] Nitroglycerin Sl Tabs [Nitrostat] 0.4 mg SUBLINGUAL DIRECTED PRN 02/28/16 [ History] metFORMIN HCL ER [Glucophage Xr] 500 mg PO HS 02/28/16 [History] Albuterol Inhaler [Ventolin Hfa Inhaler] 4 puff INHALATION RT-Q6H PRN 07/31/16 [ History] Ergocalciferol [Vitamin D2] 50,000 unit PO QMONTH 07/31/16 [History] Tamsulosin [Flomax] 0.4 mg PO HS 07/31/16 [History] Follow up Appointment(s)/Referral(s): Petr Rankin MD [STAFF PHYSICIAN] - 1 Week Gil Leyva MD [Primary Care Provider] - 1 Week Activity/Diet/Wound Care/Special Instructions: low fat diet Discharge Disposition: HOME SELF-CARE
== END 2016-08-22 11:45 | disposition home or self-care (01) ==
LOC: EC 09:40 → 3OBS 13:11
PROVIDERS: ADMIT Surgery; ATTEND Surgery
DX: R10.11 Right upper quadrant pain (principal); R07.89 Other chest pain; E11.9 Type 2 diabetes mellitus without complications; I11.9 Hypertensive heart disease without heart failure; I20.9 Angina pectoris, unspecified; E66.9 Obesity, unspecified; Z68.33 Body mass index [BMI] 33.0-33.9, adult; E78.5 Hyperlipidemia, unspecified; F41.9 Anxiety disorder, unspecified; G47.33 Obstructive sleep apnea (adult) (pediatric); H54.8 Legal blindness, as defined in USA; J45.909 Unspecified asthma, uncomplicated; K21.9 Gastro-esophageal reflux disease without esophagitis; K56.7 Ileus, unspecified; Z79.4 Long term (current) use of insulin; Z86.74 Personal history of sudden cardiac arrest; Z90.49 Acquired absence of other specified parts of digestive tract; K76.0 Fatty (change of) liver, not elsewhere classified; Z79.84 Long term (current) use of oral hypoglycemic drugs; Z79.82 Long term (current) use of aspirin; Z79.899 Other long term (current) drug therapy; Z88.0 Allergy status to penicillin; Z88.2 Allergy status to sulfonamides; Z91.041 Radiographic dye allergy status
CPT/HCPCS: 36415; 93005; 80053 ×2; 82150; 82550; 82553; 83690; 84484; 85025 ×2; 85610; 85730; 81003; 74020; 71275; 74177; 78582; 99285; 96374; 96375 ×2; 96376; 96361; G0378 ×3; A9540; A9567; J1644 ×2; Q9967; J2405; J1170 ×3; J7512 ×2; C9113 ×3; 96372

== ENCOUNTER 2017-06-19 22:08 | Emergency (ER) | payer MEDICARE ==
[2017-06-19] MEDS ORDERED: HYDROmorphone 1 MG/ML 1 ML SYRINGE IVP STA (22:23)
--- NOTE | 2017-06-19 22:25 | ED ---
SOB HPI - General Chief Complaint: Shortness of Breath Stated Complaint: FARZANA Time Seen by Provider: 06/19/17 22:20 Source: patient, RN notes reviewed Mode of arrival: wheelchair Limitations: no limitations - History of Present Illness Initial Comments: This is a 41-year-old male with a history of heart problems also history of pneumonia and a collapsed lung in the past who does not smoke who was in a car waiting for his a lot of a local store when he started developing chest pain it was midsternal mid and low sternal sharp in nature severe. He states is very short of breath has not had any fevers chills nausea vomiting sweats or other symptoms. No trauma is reported. MD Complaint: shortness of breath, chest pain - Related Data Home Medications Medication Instructions Recorded Confirmed Aspirin EC [Ecotrin Low Dose] 81 mg PO HS 02/28/16 06/19/17 Cholecalciferol [Vitamin D3] 2,000 unit PO HS 02/28/16 06/19/17 Citalopram Hydrobromide [CeleXA] 40 mg PO HS 02/28/16 06/19/17 Diltiazem HCl [Diltiazem ER] 120 mg PO HS 02/28/16 06/19/17 Losartan [Cozaar] 50 mg PO HS 02/28/16 06/19/17 Montelukast [Singulair] 10 mg PO HS 02/28/16 06/19/17 Nitroglycerin Sl Tabs [Nitrostat] 0.4 mg SUBLINGUAL DIRECTED PRN 02/28/1608/05 Albuterol Inhaler [Ventolin Hfa 4 puff INHALATION RT-Q6H PRN 07/31/16 06/19/17 Inhaler] Tamsulosin [Flomax] 0.4 mg PO HS 07/31/16 06/19/17 Previous Rx's Medication Instructions Recorded Albuterol Inhaler [Ventolin Hfa 2 puff INHALATION Q6HR PRN #1 06/20/17 Inhaler] inhaler Ibuprofen 800 mg PO Q6HR PRN #20 tablet 06/20/17 predniSONE 20 mg PO BID #10 tab 06/20/17 Allergies Allergy/AdvReac Type Severity Reaction Status Date / Time Iodinated Contrast- Oral and Allergy high BP Verified 06/19/17 22:45 IV Dye [Iodinated Contrast Media - Oral and] Penicillins Allergy Rash/Hives Verified 06/19/17 22:45 Sulfa (Sulfonamide Allergy Unknown Verified 06/19/17 22:45 Antibiotics) Review of Systems ROS Statement: Those systems with pertinent positive or pertinent negative responses have been documented in the HPI. ROS Other: All systems not noted in ROS Statement are negative. 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 Past Anesthesia/Blood Transfusion Reactions: Previous Problems w/ Anesthesia, Postoperative Nausea & Vomiting (PONV) Additional Past Anesthesia/Blood Transfusion Reaction / Comment(s): aspirated and went into cardiac arrest after neck fusion surgery-anesthesia record obtained and added to chart Past Psychological History: Anxiety Smoking Status: Never smoker Past Alcohol Use History: Occasional Past Drug Use History: None Reported - Past Family History Father Family Medical History: Cancer, Diabetes Mellitus (Father is alive his 72-year- old has history of diabetes, CABG, post kidney transplant.), Deep Vein Thrombosis (DVT) Mother Family Medical History: Diabetes Mellitus (Mother 70-year-old has history of diabetes but is type II. She also has history of DVT.), Deep Vein Thrombosis ( DVT) Brother(s) Family Medical History: No Reported History (Patient has one brother no major medical problems) Sister(s) Family Medical History: No Reported History (Patient has 2 sisters no major medical problems) Daughter(s) Family Medical History: No Reported History (Patient has 2 daughters no major medical problems) Son(s) Family Medical History: No Reported History (Patient has 2 sons no major medical problems) General Exam - General Exam Comments Initial Comments: This is a well-developed well-nourished awake alert oriented times 3 male Limitations: no limitations General appearance: alert, anxious, in distress Head exam: Present: atraumatic, normocephalic, normal inspection Eye exam: Present: normal appearance, PERRL, EOMI. Absent: scleral icterus, conjunctival injection, periorbital swelling ENT exam: Present: normal exam, mucous membranes moist Neck exam: Present: normal inspection. Absent: tenderness, meningismus, lymphadenopathy Respiratory exam: Present: decreased breath sounds. Absent: respiratory distress, wheezes, rales, rhonchi, stridor Cardiovascular Exam: Present: normal rhythm, tachycardia, normal heart sounds. Absent: systolic murmur, diastolic murmur, rubs, gallop, clicks GI/Abdominal exam: Present: soft, normal bowel sounds. Absent: distended, tenderness, guarding, rebound, rigid, bruit, pulsatile mass, hernia Extremities exam: Present: normal inspection, full ROM, normal capillary refill. Absent: tenderness, pedal edema, joint swelling, calf tenderness Back exam: Present: normal inspection Neurological exam: Present: alert, oriented X3, CN II-XII intact Psychiatric exam: Present: normal affect, anxious Skin exam: Present: warm, dry, intact, normal color. Absent: rash Course Vital Signs 06/19/17 06/19/17 06/19/17 22:11 23:35 23:36 Temperature 98.4 F Pulse Rate 114 H 112 H Respiratory 24 20 Rate Blood Pressure 138/101 O2 Sat by Pulse 96 Oximetry 06/19/17 06/20/17 23:46 00:14 Temperature Pulse Rate 116 H 105 H Respiratory 23 Rate Blood Pressure 126/71 O2 Sat by Pulse 95 Oximetry - Reevaluation(s) Reevaluation #1: 06/20/17 00:20 Reevaluation after the initial treatment patient did have some increased aeration slight chest pain Medical Decision Making - Medical Decision Making Reevaluation revealed patient markedly increased aeration he still has tenderness palpation on the right costal sternal margin consistent with osteochondritis. The patient will be discharged on appropriate medication after IV meds are given. His Ventolin may be he'll get a prescription for developing an inhaler. - Lab Data Result diagrams: 06/19/17 22:30 06/19/17 22:30 Lab Results 06/19/17 06/19/17 06/19/17 Range/Units 22:30 22:30 22:30 WBC 12.9 H (3.8-10.6) k/uL RBC 5.62 (4.30-5.90) m/uL Hgb 15.6 (13.0-17.5) gm/dL Hct 46.5 (39.0-53.0) % MCV 82.9 (80.0-100.0) fL MCH 27.7 (25.0-35.0) pg MCHC 33.5 (31.0-37.0) g/dL RDW 14.9 (11.5-15.5) % Plt Count 300 (150-450) k/uL Neutrophils % 56 % Lymphocytes % 33 % Monocytes % 6 % Eosinophils % 3 % Basophils % 1 % Neutrophils # 7.2 (1.3-7.7) k/uL Lymphocytes # 4.2 (1.0-4.8) k/uL Monocytes # 0.8 (0-1.0) k/uL Eosinophils # 0.4 (0-0.7) k/uL Basophils # 0.1 (0-0.2) k/uL D-Dimer (<0.60) mg/L FEU Sodium 140 (137-145) mmol/L Potassium 3.8 (3.5-5.1) mmol/L Chloride 102 (98-107) mmol/L Carbon Dioxide 23 (22-30) mmol/L Anion Gap 15 mmol/L BUN 14 (9-20) mg/dL Creatinine 0.90 (0.66-1.25) mg/dL Est GFR (MDRD) Af Amer >60 (>60 ml/min/1.73 sqM) Est GFR (MDRD) Non-Af >60 (>60 ml/min/1.73 sqM) Glucose 109 H (74-99) mg/dL Plasma Lactic Acid Rolando (0.7-2.0) mmol/L Calcium 9.3 (8.4-10.2) mg/dL Magnesium 1.8 (1.6-2.3) mg/dL Total Bilirubin 0.5 (0.2-1.3) mg/dL AST 28 (17-59) U/L ALT 65 (21-72) U/L Alkaline Phosphatase 76 (38-126) U/L Total Creatine Kinase 225 H (55-170) U/L CK-MB (CK-2) 0.7 (0.0-2.4) ng/mL CK-MB (CK-2) Rel Index 0.3 Total Protein 7.3 (6.3-8.2) g/dL Albumin 4.4 (3.5-5.0) g/dL 06/19/17 06/19/17 Range/Units 22:30 22:30 WBC (3.8-10.6) k/uL RBC (4.30-5.90) m/uL Hgb (13.0-17.5) gm/dL Hct (39.0-53.0) % MCV (80.0-100.0) fL MCH (25.0-35.0) pg MCHC (31.0-37.0) g/dL RDW (11.5-15.5) % Plt Count (150-450) k/uL Neutrophils % % Lymphocytes % % Monocytes % % Eosinophils % % Basophils % % Neutrophils # (1.3-7.7) k/uL Lymphocytes # (1.0-4.8) k/uL Monocytes # (0-1.0) k/uL Eosinophils # (0-0.7) k/uL Basophils # (0-0.2) k/uL D-Dimer 0.42 (<0.60) mg/L FEU Sodium (137-145) mmol/L Potassium (3.5-5.1) mmol/L Chloride (98-107) mmol/L Carbon Dioxide (22-30) mmol/L Anion Gap mmol/L BUN (9-20) mg/dL Creatinine (0.66-1.25) mg/dL Est GFR (MDRD) Af Amer (>60 ml/min/1.73 sqM) Est GFR (MDRD) Non-Af (>60 ml/min/1.73 sqM) Glucose (74-99) mg/dL Plasma Lactic Acid Rolando 2.3 H* (0.7-2.0) mmol/L Calcium (8.4-10.2) mg/dL Magnesium (1.6-2.3) mg/dL Total Bilirubin (0.2-1.3) mg/dL AST (17-59) U/L ALT (21-72) U/L Alkaline Phosphatase (38-126) U/L Total Creatine Kinase (55-170) U/L CK-MB (CK-2) (0.0-2.4) ng/mL CK-MB (CK-2) Rel Index Total Protein (6.3-8.2) g/dL Albumin (3.5-5.0) g/dL - EKG Data -: EKG Interpreted by Me EKG shows normal: sinus rhythm (Sinus tachycardia rate of 113 QRS 80. Interval 124 QT since QTC of 332/455 low-voltage no acute ST-T wave changes.) - Radiology Data Radiology results: report reviewed (I did review the imaging and reports no acute findings.), image reviewed Disposition Clinical Impression: Acute bronchospasm, Costochondritis, acute Disposition: HOME SELF-CARE Condition: Good Instructions: Bronchospasm (ED), Costochondritis (ED), Chest Wall Pain (ED) Prescriptions: Albuterol Inhaler [Ventolin Hfa Inhaler] 2 puff INHALATION Q6HR PRN #1 inhaler PRN Reason: Dyspnea Ibuprofen 800 mg PO Q6HR PRN #20 tablet PRN Reason: Pain predniSONE 20 mg PO BID #10 tab Referrals: Gil Leyva MD [Primary Care Provider] - 1-2 days
[2017-06-19] MEDS ORDERED: LORazepam 2 MG/ML INJ IV STA (22:34)
--- NOTE | 2017-06-19 22:36 | XR ---
EXAMINATION TYPE: XR chest 1V portable DATE OF EXAM: 06/19/2017 COMPARISON: 02/28/2016 HISTORY: Difficulty breathing TECHNIQUE: Single frontal view of the chest is obtained. FINDINGS: There is some linear density at the left lung base. There is no heart failure. There are c hest leads. The right lung is clear. There is a poor respiration. IMPRESSION: There is some atelectasis at the left lung base. Inspiration is worse than last exam. No heart failure.
[2017-06-19 22:52] LABS: Basophils # (A) 0.1 k/uL (0-0.2); Basophils % (A) 1 %; CH 28.2; CHCM 34.2; Eosinophils # (A) 0.4 k/uL (0-0.7); Eosinophils % (A) 3 %; HCT 46.5 % (39.0-53.0); HDW 2.53; HGB 15.6 gm/dL (13.0-17.5); Luc # (Auto) 0.23; Luc % (Auto) 2; Lymphocytes # (A) 4.2 k/uL (1.0-4.8); Lymphocytes % (A) 33 %; MCH 27.7 pg (25.0-35.0); MCHC 33.5 g/dL (31.0-37.0); MCV 82.9 fL (80.0-100.0); Mean Platelet Volume 7.7; Monocytes # (A) 0.8 k/uL (0-1.0); Monocytes % (A) 6 %; Neutrophils # (A) 7.2 k/uL (1.3-7.7); Neutrophils % (A) 56 %; RBC 5.62 m/uL (4.30-5.90); RDW 14.9 % (11.5-15.5); WBC 12.9 k/uL (3.8-10.6); WBC (Perox) 12.43
[2017-06-19 23:02] LABS: ALT 65 U/L (21-72); AST 28 U/L (17-59); Alkaline Phosphatase 76 U/L (38-126); Anion Gap 15 mmol/L; Blood Urea Nitrogen 14 mg/dL (9-20); Calcium 9.3 mg/dL (8.4-10.2); Carbon Dioxide 23 mmol/L (22-30); Chloride 102 mmol/L (98-107); Glucose 109 mg/dL (74-99); Magnesium 1.8 mg/dL (1.6-2.3); Non-African American GFR(MDRD) >60 (>60 ml/min/1.73 sqM); Potassium 3.8 mmol/L (3.5-5.1); Sodium 140 mmol/L (137-145); Total Bilirubin 0.5 mg/dL (0.2-1.3); Total Protein 7.3 g/dL (6.3-8.2)
[2017-06-19] MEDS ORDERED: SODIUM CHLORIDE 0.9% 2,000 ML IV ONE (23:03)
[2017-06-19 23:23] LABS: Creatine Kinase MB 0.7 ng/mL (0.0-2.4)
[2017-06-19] MEDS ORDERED: IPRATROPIUM-ALBUTEROL 3 ML NEB INHALATION STA (23:29)
[2017-06-20] MEDS ORDERED: methylPREDNISolone SOD SUCCI 125 MG/2 ML VIAL IV STA (00:19)
[2017-06-20] MEDS ORDERED: KETOROLAC 30 MG/ML 1 ML VIAL IVP STA (00:19)
[2017-06-20] MEDS ORDERED: HYDROmorphone 2 MG/ML 1 ML SYRINGE IVP STA (00:46)
[2017-06-20] MEDS ORDERED: HYDROmorphone 1 MG/ML 1 ML SYRINGE IVP STA (00:47)
[2017-06-20 01:02] VITALS: BP 109/72; PULSE 99; RESP 18; TEMP 98
== END 2017-06-20 01:01 | disposition home or self-care (01) ==
LOC: EC 22:08
DX: J98.01 Acute bronchospasm (principal); M94.0 Chondrocostal junction syndrome [Tietze]; J45.909 Unspecified asthma, uncomplicated; I10 Essential (primary) hypertension; Z87.01 Personal history of pneumonia (recurrent); Z91.041 Radiographic dye allergy status; Z88.0 Allergy status to penicillin; Z88.2 Allergy status to sulfonamides; Z79.82 Long term (current) use of aspirin; Z79.899 Other long term (current) drug therapy
CPT/HCPCS: 36415; 94640; 85379; 80053; 82550; 82553; 83605; 83735; 85025; 87040; 71010; 99285; 96374; 96376; 96375 ×3; 96361 ×2; J2060; J1170 ×2; J2930; J1885

== ENCOUNTER 2017-10-08 15:44 | Emergency (ER) | payer MEDICARE ==
[2017-10-08 16:34] VITALS: TEMP 98.8
[2017-10-08] MEDS ORDERED: SODIUM CHLORIDE 0.9% 1,000 ML IV STA (16:59)
[2017-10-08] MEDS ORDERED: MORPHINE SULFATE 4 MG/ML SYRINGE IV STA (17:01)
[2017-10-08] MEDS ORDERED: MORPHINE SULFATE/PF 10MG/10ML VL IVP STA (17:18)
--- NOTE | 2017-10-08 17:22 | ED ---
General Adult HPI - General Chief complaint: Abdominal Pain Stated complaint: abdominal pain Time Seen by Provider: 10/08/17 16:41 Source: patient, RN notes reviewed Mode of arrival: wheelchair - History of Present Illness Initial comments: 42-year-old male presents to the emergency department with a past medical history of blindness with a chief complaint of right-sided abdominal pain. He states this started over the last few days to the The Right Side. He States It' s Tender to Touch. It Originally Started in the Back and Now Is Gone to the Right Side. He Denies Any Changes in Urination. He Denies Any Fever Chills. Denies Any Cough Cold Symptoms. He States He Was Concerned Due To the Worsening Pains without That He Should Be seen. Patient denies any recent fever , chills, shortness of breath, chest pain, back pain, nausea vomiting, numbness or tingling, dysuria or hematuria, constipation or diarrhea, headaches or visual changes, or any other current symptoms. - Related Data Home Medications Medication Instructions Recorded Confirmed Aspirin EC [Ecotrin Low Dose] 81 mg PO HS 02/28/16 10/08/17 Cholecalciferol [Vitamin D3] 2,000 unit PO HS 02/28/16 10/08/17 Citalopram Hydrobromide [CeleXA] 40 mg PO HS 02/28/16 10/08/17 Diltiazem HCl [Diltiazem ER] 120 mg PO HS 02/28/16 10/08/17 Losartan [Cozaar] 50 mg PO HS 02/28/16 10/08/17 Montelukast [Singulair] 10 mg PO HS 02/28/16 10/08/17 Nitroglycerin Sl Tabs [Nitrostat] 0.4 mg SUBLINGUAL DIRECTED PRN 02/28/16 Tamsulosin [Flomax] 0.4 mg PO HS 07/31/16 10/08/17 Previous Rx's Medication Instructions Recorded Albuterol Inhaler [Ventolin Hfa 2 puff INHALATION Q6HR PRN #1 06/20/17 Inhaler] inhaler Allergies Allergy/AdvReac Type Severity Reaction Status Date / Time Iodinated Contrast- Oral and Allergy high BP Verified 10/08/17 17:00 IV Dye [Iodinated Contrast Media - Oral and] Penicillins Allergy Rash/Hives Verified 10/08/17 17:00 Sulfa (Sulfonamide Allergy Unknown Verified 10/08/17 17:00 Antibiotics) Review of Systems ROS Statement: Those systems with pertinent positive or pertinent negative responses have been documented in the HPI. ROS Other: All systems not noted in ROS Statement are negative. 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 Past Anesthesia/Blood Transfusion Reactions: Previous Problems w/ Anesthesia, Postoperative Nausea & Vomiting (PONV) Additional Past Anesthesia/Blood Transfusion Reaction / Comment(s): aspirated and went into cardiac arrest after neck fusion surgery-anesthesia record obtained and added to chart Past Psychological History: Anxiety Smoking Status: Never smoker Past Alcohol Use History: Occasional Past Drug Use History: None Reported - Past Family History Father Family Medical History: Cancer, Diabetes Mellitus (Father is alive his 72-year- old has history of diabetes, CABG, post kidney transplant.), Deep Vein Thrombosis (DVT) Mother Family Medical History: Diabetes Mellitus (Mother 70-year-old has history of diabetes but is type II. She also has history of DVT.), Deep Vein Thrombosis ( DVT) Brother(s) Family Medical History: No Reported History (Patient has one brother no major medical problems) Sister(s) Family Medical History: No Reported History (Patient has 2 sisters no major medical problems) Daughter(s) Family Medical History: No Reported History (Patient has 2 daughters no major medical problems) Son(s) Family Medical History: No Reported History (Patient has 2 sons no major medical problems) General Exam - General Exam Comments Initial Comments: General: The patient is awake and alert, in no distress, and does not appear acutely ill. Eye: Pupils are equal, round and reactive to light, extra-ocular movements are intact; there is normal conjunctiva bilaterally. No signs of icterus. Ears, nose, mouth and throat: There are moist mucous membranes. Neck: The neck is supple, there is no tenderness. Cardiovascular: There is a regular rate and rhythm. No murmur, rub or gallop is appreciated. Respiratory: Lungs are clear to auscultation, respirations are non-labored, breath sounds are equal. No wheezes, stridor, rales, or rhonchi. Gastrointestinal: Soft, non-distended, non-tender abdomen without masses or organomegaly noted. There is no rebound or guarding present. No CVA tenderness. Bowel sounds are unremarkable. Back: There is no tenderness to palpation in the midline. There is no obvious deformity. No rashes noted. Musculoskeletal: Normal ROM, no tenderness, There is no pedal edema. There is no calf tenderness or swelling. Sensation intact. Pulses equal bilaterally 2+. Neurological: CN II-XII intact, There are no obvious motor or sensory deficits. Coordination appears grossly intact. Speech is normal. Skin: Skin is warm and dry and no rashes or lesions are noted. Psychiatric: Cooperative, appropriate mood & affect, normal judgment. Course Vital Signs 10/08/17 10/08/17 16:29 18:47 Temperature 98.8 F Pulse Rate 95 81 Respiratory 18 16 Rate Blood Pressure 133/84 137/86 O2 Sat by Pulse 97 98 Oximetry Medical Decision Making - Medical Decision Making 42-year-old male presents for right-sided abdominal pain. This time CAT scan lab work is been reviewed. At this time we did discuss possible etiologies. We did discuss what to watch for we discussed follow-up we discussed return parameters all questions. Patient stated that he understood he is agreement this plan. All questions have been answered. He will be discharged. - Lab Data Result diagrams: 10/08/17 17:08 10/08/17 17:08 Lab Results 10/08/17 10/08/17 10/08/17 Range/Units 17:08 17:08 18:35 WBC 9.3 (3.8-10.6) k/uL RBC 5.76 (4.30-5.90) m/uL Hgb 15.6 (13.0-17.5) gm/dL Hct 47.1 (39.0-53.0) % MCV 81.8 (80.0-100.0) fL MCH 27.1 (25.0-35.0) pg MCHC 33.1 (31.0-37.0) g/dL RDW 13.5 (11.5-15.5) % Plt Count 263 (150-450) k/uL Neutrophils % 55 % Lymphocytes % 34 % Monocytes % 7 % Eosinophils % 1 % Basophils % 0 % Neutrophils # 5.1 (1.3-7.7) k/uL Lymphocytes # 3.2 (1.0-4.8) k/uL Monocytes # 0.6 (0-1.0) k/uL Eosinophils # 0.1 (0-0.7) k/uL Basophils # 0.0 (0-0.2) k/uL Sodium 142 (137-145) mmol/L Potassium 4.6 (3.5-5.1) mmol/L Chloride 103 (98-107) mmol/L Carbon Dioxide 28 (22-30) mmol/L Anion Gap 11 mmol/L BUN 8 L (9-20) mg/dL Creatinine 0.81 (0.66-1.25) mg/dL Est GFR (CKD-EPI)AfAm >90 (>60 ml/min/1.73 sqM) Est GFR (CKD-EPI)NonAf >90 (>60 ml/min/1.73 sqM) Glucose 96 (74-99) mg/dL Calcium 9.6 (8.4-10.2) mg/dL Total Bilirubin 0.5 (0.2-1.3) mg/dL AST 25 (17-59) U/L ALT 52 (21-72) U/L Alkaline Phosphatase 74 (38-126) U/L Total Protein 7.2 (6.3-8.2) g/dL Albumin 4.4 (3.5-5.0) g/dL Amylase 57 (30-110) U/L Lipase 71 (23-300) U/L Urine Color Light Yellow Urine Appearance Clear (Clear) Urine pH 6.0 (5.0-8.0) Ur Specific [place] 1.006 (1.001-1.035) Urine Protein Negative (Negative) Urine Glucose (UA) Negative (Negative) Urine Ketones Negative (Negative) Urine Blood Negative (Negative) Urine Nitrite Negative (Negative) Urine Bilirubin Negative (Negative) Urine Urobilinogen <2.0 (<2.0) mg/dL Ur Leukocyte Esterase Negative (Negative) - Radiology Data Radiology results: report reviewed, image reviewed Disposition Clinical Impression: Right sided abdominal pain Disposition: HOME SELF-CARE Condition: Stable Instructions: Abdominal Pain (ED) Additional Instructions: Please use medication as discussed. Please follow up with family doctor if symptoms have not improved over the next two days. Please return to the emergency room if your symptoms increase or worsen or for any other concerns. Referrals: Gil Leyva MD [Primary Care Provider] - 1-2 days Time of Disposition: 19:05
[2017-10-08 17:23] LABS: Basophils % (A) 0 %; Eosinophils # (A) 0.1 k/uL (0-0.7); Eosinophils % (A) 1 %; HCT 47.1 % (39.0-53.0); HGB 15.6 gm/dL (13.0-17.5); Lymphocytes # (A) 3.2 k/uL (1.0-4.8); Lymphocytes % (A) 34 %; MCH 27.1 pg (25.0-35.0); MCHC 33.1 g/dL (31.0-37.0); MCV 81.8 fL (80.0-100.0); Mean Platelet Volume 7.3; Monocytes # (A) 0.6 k/uL (0-1.0); Monocytes % (A) 7 %; Neutrophils # (A) 5.1 k/uL (1.3-7.7); Neutrophils % (A) 55 %; Platelet Count 263 k/uL (150-450); RBC 5.76 m/uL (4.30-5.90); RDW 13.5 % (11.5-15.5); WBC 9.3 k/uL (3.8-10.6)
[2017-10-08 17:35] LABS: ALT 52 U/L (21-72); AST 25 U/L (17-59); Albumin 4.4 g/dL (3.5-5.0); Alkaline Phosphatase 74 U/L (38-126); Amylase 57 U/L (30-110); Anion Gap 11 mmol/L; Blood Urea Nitrogen 8 mg/dL (9-20); Calcium 9.6 mg/dL (8.4-10.2); Carbon Dioxide 28 mmol/L (22-30); Chloride 103 mmol/L (98-107); Glucose 96 mg/dL (74-99); Lipase 71 U/L (23-300); Potassium 4.6 mmol/L (3.5-5.1); Sodium 142 mmol/L (137-145); Total Bilirubin 0.5 mg/dL (0.2-1.3); Total Protein 7.2 g/dL (6.3-8.2)
--- NOTE | 2017-10-08 18:30 | CT ---
EXAMINATION TYPE: CT abdomen pelvis wo con DATE OF EXAM: 10/08/2017 COMPARISON: August 20, 2016 HISTORY: RLQ pain. CT DLP: 1177 mGycm Examination of the solid and hollow viscera is limited given the lack of contrast. FINDINGS: LUNG BASES: No evidence for nodule. No evidence for infiltrate. LIVER/GB: Cholecystectomy clips are in place.. No space-occupying hepatic lesion. PANCREAS: No pancreatic mass identified. No inflammatory process seen. SPLEEN: No evidence for splenomegaly. No intrasplenic lesions seen. ADRENALS: No adrenal nodules identified. No evidence for thickening. KIDNEYS: No evidence for renal mass. No nephrolithiasis. No hydronephrosis. BOWEL: Appendix has a normal appearance. No evidence of bowel obstruction. No inflammatory process. Lymph nodes: No evidence for adenopathy greater than 1 cm. Abdominal aorta: Atheromatous changes seen. No evidence for aneurysm. Genital organs: No significant abnormality. Other: No significant abnormality. IMPRESSION: NO ACUTE PROCESS SEEN TO ACCOUNT FOR THE PATIENT'S SYMPTOMS.
[2017-10-08 18:48] VITALS: BP 137/86; PULSE 81; RESP 16
[2017-10-08 18:48] LABS: Appearance,Urine Clear (Clear); Bilirubin,Urine Negative (Negative); Blood,Urine Negative (Negative); Color,Urine Light Yellow; Glucose,Urine (UA) Negative (Negative); Ketones,Urine Negative (Negative); Leukocyte Esterase,Urine Negative (Negative); Nitrite,Urine Negative (Negative); Protein,Urine Negative (Negative); Specific Gravity,Urine 1.006 (1.001-1.035); Urobilinogen,Urine <2.0 mg/dL (<2.0)
== END 2017-10-08 19:13 | disposition home or self-care (01) ==
LOC: EC 15:44
DX: R10.9 Unspecified abdominal pain (principal); J45.909 Unspecified asthma, uncomplicated; E78.5 Hyperlipidemia, unspecified; I10 Essential (primary) hypertension; H54.7 Unspecified visual loss; F41.9 Anxiety disorder, unspecified; Z79.82 Long term (current) use of aspirin; Z79.899 Other long term (current) drug therapy; Z91.041 Radiographic dye allergy status; Z88.0 Allergy status to penicillin; Z88.2 Allergy status to sulfonamides; Z90.49 Acquired absence of other specified parts of digestive tract; Z53.8 Procedure and treatment not carried out for other reasons
CPT/HCPCS: 36415; 80053; 82150; 83690; 85025; 81003; 87086; 74176; 99284; 96374; 96361; J2270

== ENCOUNTER 2018-03-23 08:51 | Emergency (ER) | payer MEDICARE ==
[2018-03-23 08:58] VITALS: BP 117/83; PULSE 84; RESP 20; TEMP 97.7
[2018-03-23] MEDS ORDERED: KETOROLAC 60 MG/2 ML VIAL IM STA (09:15)
[2018-03-23] MEDS ORDERED: LIDOCAINE 5% PATCH TOPICAL STA (09:16)
[2018-03-23] MEDS ORDERED: ORPHENADRINE 30 MG/ML 2 ML VIAL IM STA (09:16)
--- NOTE | 2018-03-23 09:20 | ED ---
General Adult HPI - General Chief complaint: Back Pain/Injury Stated complaint: Back pain Time Seen by Provider: 03/23/18 09:01 Source: patient, RN notes reviewed Mode of arrival: ambulatory Limitations: no limitations - History of Present Illness Initial comments: Patient's a 42-year-old male who presents to emergency room today with a chief complaint of sciatic type pain 2 weeks. Patient does admit that he's had some chronic back problems. He states the last week she's been experiencing pain in the right side of the lower back that radiates down the right leg. He states it was all the way down to his toes. He denies any bowel or bladder incontinence retention. Denies any saddle anesthesia. Patient states that pain is worse with movements. Denies any specific injury or trauma. 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 Patient states that he has been trying some [place] that he had from a previous time that his back bothering him. He states that little relief. He states he tried ibuprofen last night. States he did have an appointment with his family doctor this afternoon but when he woke up was still having pain and felt that he could not bear through this throughout the day so he came here to the emergency room. Patient denies any other complaints or symptoms at this time. Patient denies any recent fever, chills, shortness of breath, chest pain, abdominal pain, nausea or vomiting, dysuria or hematuria, constipation or diarrhea, headaches or visual changes, or any other complaints. - Related Data Home Medications Medication Instructions Recorded Confirmed Aspirin EC [Ecotrin Low Dose] 81 mg PO HS 02/28/16 10/08/17 Cholecalciferol [Vitamin D3] 2,000 unit PO HS 02/28/16 10/08/17 Citalopram Hydrobromide [CeleXA] 40 mg PO HS 02/28/16 10/08/17 Diltiazem HCl [Diltiazem ER] 120 mg PO HS 02/28/16 10/08/17 Montelukast [Singulair] 10 mg PO HS 02/28/16 10/08/17 Nitroglycerin Sl Tabs [Nitrostat] 0.4 mg SUBLINGUAL Q5M PRN 02/28/16 10/08/17 Tamsulosin [Flomax] 0.4 mg PO HS 07/31/16 10/08/17 Losartan Potassium 50 mg PO HS 03/23/18 03/23/18 Previous Rx's Medication Instructions Recorded Ibuprofen [Motrin] 600 mg PO Q6HR PRN #20 tab 10/08/17 Ibuprofen [Motrin] 800 mg PO Q6HR #30 tab 03/23/18 Lidocaine [Lidoderm 5% Patch] 1 patch TRANSDERM DAILY #7 patch 03/23/18 Orphenadrine [Norflex] 100 mg PO Q12H #20 tablet.er 03/23/18 Allergies Allergy/AdvReac Type Severity Reaction Status Date / Time Iodinated Contrast- Oral and Allergy high BP Verified 03/23/18 09:13 IV Dye [Iodinated Contrast Media - Oral and] Penicillins Allergy Rash/Hives Verified 03/23/18 09:13 Sulfa (Sulfonamide Allergy Unknown Verified 03/23/18 09:13 Antibiotics) Review of Systems ROS Statement: Those systems with pertinent positive or pertinent negative responses have been documented in the HPI. ROS Other: All systems not noted in ROS Statement are negative. 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 Past Anesthesia/Blood Transfusion Reactions: Previous Problems w/ Anesthesia, Postoperative Nausea & Vomiting (PONV) Additional Past Anesthesia/Blood Transfusion Reaction / Comment(s): aspirated and went into cardiac arrest after neck fusion surgery-anesthesia record obtained and added to chart Past Psychological History: Anxiety Smoking Status: Never smoker Past Alcohol Use History: Occasional Past Drug Use History: None Reported - Past Family History Father Family Medical History: Cancer, Diabetes Mellitus (Father is alive his 72-year- old has history of diabetes, CABG, post kidney transplant.), Deep Vein Thrombosis (DVT) Mother Family Medical History: Diabetes Mellitus (Mother 70-year-old has history of diabetes but is type II. She also has history of DVT.), Deep Vein Thrombosis ( DVT) Brother(s) Family Medical History: No Reported History (Patient has one brother no major medical problems) Sister(s) Family Medical History: No Reported History (Patient has 2 sisters no major medical problems) Daughter(s) Family Medical History: No Reported History (Patient has 2 daughters no major medical problems) Son(s) Family Medical History: No Reported History (Patient has 2 sons no major medical problems) General Exam - General Exam Comments Initial Comments: General: The patient is awake and alert, in no distress, and does not appear acutely ill. Eye: Pupils are equal, round and reactive to light. Extra-ocular movements are intact. No nystagmus. There is normal conjunctiva bilaterally. No signs of icterus. Ears, nose, mouth and throat: There are moist mucous membranes and no oral lesions. Neck: The neck is supple, there is no tenderness or JVD. Cardiovascular: There is a regular rate and rhythm. No murmur, rub or gallop is appreciated. Respiratory: Lungs are clear to auscultation, respirations are non-labored, breath sounds are equal. No wheezes, stridor, rales, or rhonchi Musculoskeletal: Normal ROM. Patient does have tenderness in the paravertebral areas of the right lower lumbar. No tenderness over the thoracic or lumbar spine. No step-off or deformity. Sensation intact. Strength 5/5. Pulses equal bilaterally 2+. Neurological: A&O x 3. CN II-XII intact, There are no obvious motor or sensory deficits. Coordination appears grossly intact. Speech is normal. Skin: Skin is warm and dry and no rashes or lesions are noted. Psychiatric: Cooperative, appropriate mood & affect, normal judgment. Limitations: no limitations Course Vital Signs 03/23/18 08:55 Temperature 97.7 F Pulse Rate 84 Respiratory 20 Rate Blood Pressure 117/83 O2 Sat by Pulse 98 Oximetry Medical Decision Making - Medical Decision Making Patient is advised to follow up his family doctor and try to call back to reestablish his appointment this afternoon. He'll be treated symptomatically for his sciatic type back pain with muscle relaxer, Lidoderm patch, anti- inflammatories. We will hold steroids at this time as patient is a diabetic. He is advised to use heat to the area to see if this helps. Advised following up with family physician for further evaluation possible MRI. Advised patient to return to emergency room symptoms increase or worsen. Disposition Clinical Impression: Acute lumbar radiculopathy Disposition: HOME SELF-CARE Condition: Good Instructions: Lumbar Radiculopathy (ED) Additional Instructions: Please use medication as discussed. Please be aware muscle relaxers make you drowsy. Please follow-up with family doctor in the next 2 days. Please return to emergency room if the symptoms increase or worsen or for any other concerns. Prescriptions: Ibuprofen [Motrin] 800 mg PO Q6HR #30 tab Lidocaine [Lidoderm 5% Patch] 1 patch TRANSDERM DAILY #7 patch Orphenadrine [Norflex] 100 mg PO Q12H #20 tablet.er Is patient prescribed a controlled substance at d/c from ED?: No Referrals: Gil Leyva MD [Primary Care Provider] - 1-2 days Time of Disposition: 09:19
== END 2018-03-23 09:45 | disposition home or self-care (01) ==
LOC: EC 08:51
DX: M54.16 Radiculopathy, lumbar region (principal); J45.909 Unspecified asthma, uncomplicated; I10 Essential (primary) hypertension; Z88.0 Allergy status to penicillin; Z88.2 Allergy status to sulfonamides; Z91.041 Radiographic dye allergy status; Z95.5 Presence of coronary angioplasty implant and graft; Z79.82 Long term (current) use of aspirin; Z79.899 Other long term (current) drug therapy
CPT/HCPCS: 99283; 96372 ×2; J2360; J1885

== ENCOUNTER → 2018-04-01 | Outpatient (CLI) | payer MEDICARE ==
--- NOTE | 2018-04-01 16:58 | CT ---
EXAMINATION TYPE: CT ankle RT wo con plus 3-D reconstructions DATE OF EXAM: 04/01/2018 COMPARISON: Radiographs 03/30/2018 HISTORY: 42-year-old male Right ankle pain. TECHNIQUE: Contiguous axial scanning of the right ankle without IV contrast. Coronal and sagittal rec onstructions performed. 3-D reconstructions generated on a dedicated independent workstation. CT DLP: 295 mGycm Automated exposure control for dose reduction was used. FINDINGS: Bimalleolar soft tissue swelling and prominent soft tissue swelling continuing to the forefoot. The a nkle mortise appears congruent. There is a small posterior tibiotalar joint effusion. The Achilles te ndon is well delineated. Tiny plantar calcaneal spur. There is comminuted fracture along the volar base of the second metatarsal including a displaced avul pradip fragment measuring 6 mm. Additional small comminuted avulsion fracture fragments are present inocencia ng the second through fifth TMT joint articulations. These fragments are very small measuring up to 8 mm and the smaller as 3 mm with fragments present in both dorsally and along the plantar aspect. The re is minimal widening at the Lisfranc joint. No additional acute fracture is seen. IMPRESSION: LISFRANC FRACTURE WITH NUMEROUS SMALL COMMINUTED AVULSION FRACTURE FRAGMENTS ALONG THE LISFRANC LIGAM ENT COMPLEX AT THE TMT ARTICULATIONS WITH FRAGMENTS MEASURING UP TO 8 MM AND SMALL 3 MM. NO FRA NK MIDFOOT MALALIGNMENT AT THIS TIME. DIFFUSE SOFT TISSUE SWELLING.
== END | disposition home or self-care (01) ==
LOC: RADCTMAIN 15:46
PROVIDERS: ATTEND Orthopaedic Surgery
DX: S92.351A Displaced fracture of fifth metatarsal bone, right foot, initial encounter for closed fracture (principal)

== ENCOUNTER 2018-05-03 10:34 | Day surgery (SDC) | payer MEDICARE ==
[2018-04-29 09:21] VITALS: BMI 34.5
[~2018-05-03 10:34] MED LIST changes: -DEXAMETHASONE SOD PHOSPHATE 10 MG/ML 1 ML VIAL IV ONE; +HYDROmorphone 0.5 MG/0.5 ML SYRINGE IVP PRN; -Pre Op ABX Message 1 EACH MISC MISCELLANE ONE; -SCOPOLAMINE 1.5MG/72HR PATCH TRANSDERM ONE; +ceFAZolin IN SWFI 2 GM/20 ML SYRINGE IVP ONE
[2018-05-03] MEDS ORDERED: MIDAZOLAM 2 MG/2 ML VIAL IVP ONE (12:12)
[2018-05-03] MEDS ORDERED: fentaNYL (PF) 50 MCG/ML 2 ML AMP IVP ONE (12:13)
[2018-05-03 12:47] LABS: Glucose,Whole Blood 103 mg/dL (75-99)
[2018-05-03] MEDS ORDERED: ePHEDrine SULFATE/0.9% NACL/PF 50 MG/5 ML SYRINGE IV ONE (12:50)
[2018-05-03] MEDS ORDERED: fentaNYL (PF) 50 MCG/ML 2 ML AMP ONE (12:50)
[2018-05-03] MEDS ORDERED: SUCCINYLCHOLINE CHLORIDE VIAL 200 MG/10 ML VIAL IV ONE (12:50)
[2018-05-03] MEDS ORDERED: SODIUM CHLORIDE 0.9% 50 ML with ceFAZolin 2,000 MG IV ONE ×2 (12:50)
[2018-05-03] MEDS ORDERED: PROPOFOL 10 MG/ML 20 ML VIAL IV ONE (12:50)
[2018-05-03] MEDS ORDERED: LIDOCAINE 1% INJ 10MG/ML (20 ML MDV) ONE (12:50)
[2018-05-03] MEDS ORDERED: CALCIUM CHLORIDE 100 MG/ML 10 ML SYRINGE ONE (12:50)
[2018-05-03] MEDS ORDERED: ePHEDrine SULFATE/0.9% NACL/PF 50 MG/5 ML SYRINGE ONE (12:50)
[2018-05-03] MEDS ORDERED: MIDAZOLAM 2 MG/2 ML VIAL ONE (12:50)
[2018-05-03] MEDS ORDERED: KETAMINE 10 MG/ML 20 ML VIAL ONE (12:50)
--- NOTE | 2018-05-03 13:00 | P.ONQ ---
Anesthesiology Proc Note - PNB - Peripheral Nerve Block Performed Right Popliteal Single Time Out Performed: Yes Procedure Start Time: 12:11 Indication: Acute Post-Operative Pain, Analgesia Sedation Type: Sedate with meaningful contact maintained Preparation: Sterile Prep Position: Supine (L lateral decub) Catheter: None Needle Types: Other (see comment) (Josek) Needle Size: 50mm (2") Needle Gauge: 21 Technique: Ultrasound Injectate: 0.5% Ropivacaine (see comment for volume) (30 cc) Blood Aspirated: No Pain Paresthesia on Injection Noted: No Resistance on Injection: Normal Events: Uneventful and Well Tolerated
[2018-05-03] MEDS ORDERED: LACTATED RINGERS 1,000 ML IV ONE ×2 (14:00)
[2018-05-03 15:00] VITALS: TEMP 97.2
[2018-05-03] MEDS ORDERED: HYDROmorphone 1 MG/ML 1 ML SYRINGE IVP PRN ×2 (15:08)
[2018-05-03] MEDS ORDERED: HYDROcodone/APAP 5-325MG 1 EACH TAB PO PRN ×2 (15:08)
[2018-05-03 15:14] VITALS: RESP 16
[2018-05-03 15:26] LABS: Glucose,Whole Blood 102 mg/dL (75-99)
[2018-05-03] MEDS ORDERED: oxyCODONE-APAP 5-325MG 1 EACH TAB PO ONE (16:17)
[2018-05-03 16:26] VITALS: BP 111/62; PULSE 90
--- NOTE | 2018-05-03 16:28 | FL ---
Fluoroscopy HISTORY: Open reduction internal fixation 2 minutes 4 seconds fluoroscopy time supplied to the referring clinician. 6 intraoperative C-arm driss ges document the procedure. See dictated report from orthopedic surgery.
--- NOTE | 2018-05-03 16:53 | XR ---
Limited right foot HISTORY: Fracture 6 intraoperative C-arm images document the procedure.
--- NOTE | 2018-05-03 18:45 | OP ---
OPERATIVE REPORT DATE OF SURGERY: 05/03/2018 PREOPERATIVE DIAGNOSIS: Right medial column Lisfranc injury. POSTOPERATIVE DIAGNOSIS: Right medial column Lisfranc injury. PROCEDURE: 1. Open reduction and internal fixation of right medial column Lisfranc injury, including the first and second tarsometatarsal joints. 2. Manual application of stress for radiography applied by physician, right foot. 3. Application of short-leg splint by physician. SURGEON: Dr. Aguilar Rios. MOTEL KEEPER: None. ANESTHESIA: General plus popliteal and saphenous nerve block. FLUIDS: 1300 mL crystalloid. TOURNIQUET TIME: 60 minutes. INDICATION: The patient is a very pleasant 42-year-old male with a medical history significant for type 2 diabetes and being blind. The patient was up on a ladder when he lost his balance and fell onto his right foot. He sustained an isolated injury to his right foot. He was initially seen by my partner, Dr. Jose Roberto Varghese, who obtained x-rays and a CT scan. There was concern for unstable Lisfranc injury. I met with the patient in the office and he had both clinical and radiographic findings suggestive of an unstable Lisfranc injury. I discussed different treatment options, including nonoperative management and a cast versus surgery. We elected to proceed with an exam under anesthesia, and if the joints are unstable, performing open reduction and internal fixation. The patient and his voiced understanding of the potential risks and complications of surgery, including but not limited to risk of anesthesia, risk of superficial infection, risk of deep infection, risk of delayed wound healing, risk of damage to local blood vessels or nerves, risk of superficial wound necrosis, risk of nonunion of the midfoot fractures, risk of malreduction of the mid foot fractures in Lisfranc joint complex, risk of post-traumatic arthritis, risk of symptomatic hardware, risk of broken hardware, risk of chronic pain, risk of chronic swelling, risk of inability to regain pre-injury level function, risk of DVT, risk of PE, risk of other medical complications, risk of generalized dissatisfaction with surgery and possible loss of life or limb. The patient voiced his understanding of these potential risks and also acknowledged that other less common complications are possible. He provided his verbal and written consent to go forward with surgery. PROCEDURE: The patient was identified in Preoperative Holding and the correct right leg was marked with my initials. I reviewed the consent form with the patient and all of his questions were answered. The patient was then brought back to the operating room by Anesthesia. He was positioned on the OR table and sedation was provided. A time-out was performed, identifying the correct patient, operative extremity and procedure. I then proceeded to perform a manual stress exam under C-arm fluoroscopy in the operating room. A manual abduction stress was applied to the mid foot. There was lateral subluxation of the first and second metatarsal base. I interpreted this as an unstable injury requiring surgery. For comparison, stress x-rays of the left foot were taken and there was no widening or gapping at the base of the first or second tarsometatarsal joint. The patient was then prepared for surgery. A tourniquet was applied to the proximal aspect of the right leg. All bony prominences well padded. The right leg was prepped and draped in standard sterile fashion. Prior to starting surgery a time-out was performed, identifying the correct patient, operative extremity and procedure. The patient's leg was elevated, exsanguinated with an Esmarch bandage, and the tourniquet was inflated to 250 mmHg. I began by outlining a longitudinal incision centered between the first and second metatarsals. Skin incision was made with a scalpel and dissection was carried down carefully through the subcutaneous tissue with tenotomy scissors. The branch of the superficial peroneal nerve was identified proximally and carefully retracted. Crossing veins were controlled with electrocautery. The sheath of the EHL tendon was incised longitudinally in line with the skin incision. The EHL tendon was retracted laterally. The periosteum and capsules over the first and second tarsometatarsal joints were sharply elevated. The capsule was hemorrhagic and obviously disrupted. There was gross instability between the first metatarsal base and medial cuneiform. I was easily able to pass a Carter elevator into the joint and displace the first metatarsal. There was also instability between the base of the second metatarsal and medial cuneiform. I was again easily able to pass a Carter elevator into this space. I initially reduced and stabilized the first tarsometatarsal joint with an eccentrically placed K-wire. I then contoured an 8-hole 2.7 plate over the dorsal aspect to use as a bridge plate construct. The plate was secured proximally and distally with nonlocking screws. The position of the joint and hardware was verified using an AP, oblique and lateral x-ray of the foot. I then proceeded to reduce the second metatarsal base into the [place]. An 8-inch Juárez reduction clamp was used. One cassy of the Juárez clamp was placed over the lateral base of the second metatarsal and the other cassy was placed through a stab incision over the medial cuneiform. The clamp was gently reduced. Clinically the base of the second metatarsal appeared to be reduced and there was no longer instability. An x-ray also showed the second metatarsal base to be reduced within the [place]. I then placed a nonlocking 3.5 mm home-run screw from the medial cuneiform into the second metatarsal base. The large Juárez clamp was removed and the reduction held. At this point I took final fluoroscopic images. AP, oblique and lateral x-rays of the foot showed intact hardware and a reduced Lisfranc joint complex. I did not see any instability of the third tarsometatarsal joint, so I elected not to place a lateral incision. I then performed an additional manual abduction stress x-ray of the right foot, and there was no widening. I interpreted this as a stable foot. The wounds were copiously irrigated and closed in layers. The tourniquet was let down, with a total tourniquet time of 60 minutes. A sterile dressing consisting of Adaptic, 4x4 and Webril was applied. The patient was woken from his anesthetic, transferred to a gurney and brought to PACU, having tolerated the procedure well. PLAN: The patient is going to be discharged home as an outpatient. He is to be strictly nonweightbearing on his right leg. He had a saphenous and popliteal nerve block by Anesthesia. He is going to be discharged home with pain medication. He will also be given aspirin 325 mg twice daily for DVT prophylaxis. The patient's was instructed to contact the office if there are any issues overnight. MMODL / IJN: [id number] /
== END 2018-05-03 16:53 | disposition home or self-care (01) ==
LOC: OR 10:34
PROVIDERS: ATTEND Orthopaedic Surgery
DX: S93.324A Dislocation of tarsometatarsal joint of right foot, initial encounter (principal); W11.XXXA Fall on and from ladder, initial encounter; H54.7 Unspecified visual loss; I10 Essential (primary) hypertension; E78.5 Hyperlipidemia, unspecified; K21.9 Gastro-esophageal reflux disease without esophagitis; J45.909 Unspecified asthma, uncomplicated; G47.33 Obstructive sleep apnea (adult) (pediatric); Z99.89 Dependence on other enabling machines and devices; N40.0 Benign prostatic hyperplasia without lower urinary tract symptoms; F39 Unspecified mood [affective] disorder; Z79.82 Long term (current) use of aspirin; Z91.041 Radiographic dye allergy status; Z79.891 Long term (current) use of opiate analgesic; Z79.899 Other long term (current) drug therapy; Z88.0 Allergy status to penicillin; Z88.2 Allergy status to sulfonamides
CPT/HCPCS: 73620; 28615; C1713; J2250; J0330; J2405; J2001; J3010; J0690; J2704

== ENCOUNTER 2018-06-13 19:29 | Emergency (ER) | payer MEDICARE ==
[2018-06-13 19:41] VITALS: RESP 18
[2018-06-13] MEDS ORDERED: SODIUM CHLORIDE 0.9% 1,000 ML IV STA (20:48)
--- NOTE | 2018-06-13 21:03 | ED ---
General Adult HPI - General Chief complaint: Dizziness Stated complaint: Dizziness Time Seen by Provider: 06/13/18 20:10 Source: patient, RN notes reviewed, old records reviewed Mode of arrival: wheelchair Limitations: no limitations - History of Present Illness Initial comments: Chief complaint and history of present illness this is a 42-year-old male who is coming emergency room because she's not been feeling well. The patient reports she's been slightly dizzy. Complains of some fullness or discomfort to the ears. 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 The patient also recently had right foot surgery 7 weeks ago. One week ago he was evaluated by his surgeon and the wound looked good. He states that his has been cleaning the wound there is one small area over the suture line where there is a small irregularity but no pus and no signs of infection appreciated. The patient denies foot pain. Able to wiggle his toes. He also states that he had difficulty speaking at home when fact he has a small lesion on his tongue which developed today which made it difficult for her to pronounce words. Otherwise no neuro deficits. He reports been eating and drinking without difficulty. Denies any pain or shortness of breath no significant headache no stiff neck. No fever or flu-type symptoms. - Related Data Home Medications Medication Instructions Recorded Confirmed Aspirin EC [Ecotrin Low Dose] 81 mg PO HS 02/28/16 06/13/18 Cholecalciferol [Vitamin D3] 2,000 unit PO HS 02/28/16 06/13/18 Citalopram Hydrobromide [CeleXA] 40 mg PO HS 02/28/16 06/13/18 Diltiazem HCl [Diltiazem ER] 120 mg PO HS 02/28/16 06/13/18 Montelukast [Singulair] 10 mg PO HS 02/28/16 06/13/18 Nitroglycerin Sl Tabs [Nitrostat] 0.4 mg SUBLINGUAL Q5M PRN 02/28/16 06/13/18 Tamsulosin [Flomax] 0.4 mg PO HS 07/31/16 06/13/18 Losartan Potassium 50 mg PO HS 03/23/18 06/13/18 clomiPRAMINE [Anafranil] 25 mg PO HS 04/29/18 06/13/18 Previous Rx's Medication Instructions Recorded Azithromycin [Zithromax Z-pack] 250 mg PO DIRECTED #6 tab 06/13/18 Allergies Allergy/AdvReac Type Severity Reaction Status Date / Time Iodinated Contrast- Oral and Allergy high BP Verified 06/13/18 20:45 IV Dye [Iodinated Contrast Media - Oral and] Penicillins Allergy Rash/Hives Verified 06/13/18 20:45 Sulfa (Sulfonamide Allergy Unknown Verified 06/13/18 20:45 Antibiotics) Review of Systems ROS Statement: Those systems with pertinent positive or pertinent negative responses have been documented in the HPI. Review of systems. The patient denies any headache or stiff neck no sore throat. He does have dried lips. States he is drinking water without difficulty. He does have a 1 cm round area on the tip of his tongue that appears slightly necrotic etiology unknown. Affects slightly his pronunciation of words. Otherwise denies chest pain or shortness of breath no abdominal pain denies nausea vomiting or diarrhea. Recently had foot surgery, 7 weeks ago. Healing asthma be expected. The patient does not ambulate or rather his pushed around in a wheelchair. All systems were reviewed past medical processing significant for angina, diabetes, retinitis pigmentosa, GERD, hyperlipidemia, hypertension, chronic liver disease, pneumonia, prostate problems. Sleep apnea and blindness is noted with his retinitis pigmentosa. This surgeries include appendectomy, cholecystectomy, ear surgery, heart catheterization surgery on his right foot several weeks ago tonsillectomy cholecystectomy. Family history noncontributory. The patient has ALLERGIES iodine dye penicillin and sulfa. Patient states he has diabetes but does not take his metformin and has not taken it for over 3 months. Because makes him feel dizzy in the afternoon. Denies smoking denies drinking states his blood sugar normal at 130 range ROS Other: All systems not noted in ROS Statement are negative. Past Medical History Past Medical History: Asthma, Chest Pain / Angina, Diabetes Mellitus, Eye Disorder, GERD/Reflux, Hyperlipidemia, Hypertension, Liver Disease, Neurologic Disorder, Pneumonia, Prostate Disorder, Sleep Apnea/CPAP/BIPAP Additional Past Medical History / Comment(s): Blind bilaterally (sees light only ) x-link retinitis pigmatosis. Hx tachycardia, NIDDM type II, "used to take Metformin, not on any medications right now, controlling with diet." CPAP use. Hx esophageal spasms, hx H pylori. Neurologic tremors, fatty liver, enlarged prostate, frequent night time urination. Hx sinus problems and asthma, now resolved. Seasonal allergies. History of Any Multi-Drug Resistant Organisms: None Reported Past Surgical History: Adenoidectomy, Cholecystectomy, Ear Surgery, Heart Catheterization, Orthopedic Surgery, Tonsillectomy Additional Past Surgical History / Comment(s): Lap Cholecystectomy, 2017, Cervical Fusion C6-C7, 2012, Sinus Surgery, EGD, Cardiac Cath without intervention. Past Anesthesia/Blood Transfusion Reactions: Previous Problems w/ Anesthesia, Postoperative Nausea & Vomiting (PONV) Additional Past Anesthesia/Blood Transfusion Reaction / Comment(s): "Aspirated and went into cardiac arrest after neck fusion surgery." Past Psychological History: Anxiety Smoking Status: Never smoker Past Alcohol Use History: Occasional Past Drug Use History: None Reported - Past Family History Father Family Medical History: Cancer, Diabetes Mellitus, Deep Vein Thrombosis (DVT) Additional Family Medical History / Comment(s): Skin cancer. Mother Family Medical History: Diabetes Mellitus, Deep Vein Thrombosis (DVT) Brother(s) Family Medical History: No Reported History Sister(s) Family Medical History: No Reported History Daughter(s) Family Medical History: No Reported History Son(s) Family Medical History: No Reported History General Exam - General Exam Comments Initial Comments: General: The patient is awake and alert, states she doesn't feel well. 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 Also states he has a bump on his tongue appears to be a small 1 cm round necrotic area on the tip of his tongue unknown as to what happened. Also dry lips. States he is eating and drinking well without difficulty. History of diabetes but does not take his metformin for the last 3 months because it makes him feel dizzy in the afternoon. Vital signs temperature 98.1 pulse 110 respiratory rate 18 pulse ox 99% room air blood pressure 136/92 Eye: Patient and history of retinitis pigmentosa and is blind to the point of being able to only see bright lights but no movement. Ears, nose, mouth and throat: Dry lips dry tongue. Patient has a 1 cm round necrotic lesion on the tip of the tongue which apparently is new today. Unknown as to how this developed. If it persists he will be advised to have his take him to ENT. Neck: The neck is supple, there is no tenderness, no meningeal irritation no stiff neck. Cardiovascular: Tachycardic heart rate, 106 .No murmur, rub or gallop is appreciated. Respiratory: Lungs are clear to auscultation, respirations are non-labored, breath sounds are equal. No wheezes, stridor, rales, or rhonchi. Gastrointestinal: Soft, non-distended, non-tender abdomen without masses or organomegaly noted. There is no rebound or guarding present. No CVA tenderness. Bowel sounds are unremarkable. Back: There is no tenderness to palpation in the midline. There is no obvious deformity. No rashes noted. Musculoskeletal: Examination of the right foot where the patient had surgery 7 weeks ago. Mildly swollen but not tender not hot to palpation. No pus can be expressed with examination of the wound. One small area of wound breakdown without discharge. Slight redness around the wound healing edges. Neurological: CN II-XII intact, There are no obvious motor or sensory deficits. Coordination appears grossly intact. Speech is normal. 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 Psychiatric: Cooperative, appropriate mood & affect, normal judgment. Limitations: no limitations Course Vital Signs 06/13/18 19:37 Temperature 98.1 F Pulse Rate 110 H Respiratory 18 Rate Blood Pressure 136/92 O2 Sat by Pulse 99 Oximetry EKG Findings - EKG Comments: EKG Findings:: EKG was done and reviewed at 20.06 showing sinus tachycardia rate [address] elevation no ectopy no ischemic changes. MA interval was 134 QRS [address] QT [address] Leon Medical Decision Making - Medical Decision Making Medical decision making; is a 42-year-old male brought emergency room because didn't feel well. The patient states that he was having some difficulty with speech when in fact he has a small 1 cm round lesion on the tip of his tongue which developed today. He's 100% sure was not there yesterday. He can't remember biting it or burning it. If this were to persist the patient has been told to follow-up with ENT within the week. Otherwise the patient reports she' s had sensation of ear discomfort and slight dizziness. The patient's labs showed a white count of 9 hemoglobin 14 hematocrit of 43 with potassium 4.0. BUN 13 creatinine 0.81 to GFR greater than 90. Leukos 120. The patient reports that it is not good about his diet noticed take metformin for the past 3 months. He was encouraged to discuss this with his family physician as uncontrolled diabetes increases morbidity and mortality. The patient's troponin is less than 0.012. Chest x-ray is done and reviewed by radiologist no acute findings other than left basilar atelectatic streaking. Per Dr. Daniel The patient received 1 L of hydration. States he is feeling better. I discussed with him the findings of the laboratory as well as EKG. The patient' s ears show bilateral full tympanic membranes but not reddened. He does complain of pressure sensation. And mild dizziness. Current treatment plan will be for the patient to use nasal sprays and azithromycin as directed. The patient does have ALLERGIES to penicillin and sulfa drugs. Again the patient was told if the lesion on his tongue persists for more than a week he'll follow- up with ENT and/or his family doctor. - Lab Data Result diagrams: 06/13/18 20:15 06/13/18 20:15 Lab Results 06/13/18 06/13/18 06/13/18 Range/Units 20:15 20:15 20:15 WBC 9.7 (3.8-10.6) k/uL RBC 5.11 (4.30-5.90) m/uL Hgb 14.2 (13.0-17.5) gm/dL Hct 43.0 (39.0-53.0) % MCV 84.0 (80.0-100.0) fL MCH 27.7 (25.0-35.0) pg MCHC 33.0 (31.0-37.0) g/dL RDW 13.5 (11.5-15.5) % Plt Count 323 (150-450) k/uL Neutrophils % 60 % Lymphocytes % 30 % Monocytes % 6 % Eosinophils % 2 % Basophils % 1 % Neutrophils # 5.8 (1.3-7.7) k/uL Lymphocytes # 2.9 (1.0-4.8) k/uL Monocytes # 0.6 (0-1.0) k/uL Eosinophils # 0.2 (0-0.7) k/uL Basophils # 0.1 (0-0.2) k/uL Sodium 138 (137-145) mmol/L Potassium 4.0 (3.5-5.1) mmol/L Chloride 103 (98-107) mmol/L Carbon Dioxide 26 (22-30) mmol/L Anion Gap 9 mmol/L BUN 13 (9-20) mg/dL Creatinine 0.81 (0.66-1.25) mg/dL Est GFR (CKD-EPI)AfAm >90 (>60 ml/min/1.73 sqM) Est GFR (CKD-EPI)NonAf >90 (>60 ml/min/1.73 sqM) Glucose 120 H (74-99) mg/dL Calcium 9.3 (8.4-10.2) mg/dL Total Bilirubin 0.4 (0.2-1.3) mg/dL AST 35 (17-59) U/L ALT 53 (21-72) U/L Alkaline Phosphatase 93 (38-126) U/L Troponin I <0.012 (0.000-0.034) ng/mL Total Protein 7.2 (6.3-8.2) g/dL Albumin 4.2 (3.5-5.0) g/dL Disposition Clinical Impression: URI (upper respiratory infection) Disposition: HOME SELF-CARE Condition: Fair Instructions: Ear Infection (ED) Additional Instructions: Take medications until completed. Increase fluid intake. physician concerning diabetic management. If the lesion on her tongue persists for one week or longer follow-up with your family doctor and/or ENT. Complete a azithromycin as directed Prescriptions: Azithromycin [Zithromax Z-pack] 250 mg PO DIRECTED #6 tab Is patient prescribed a controlled substance at d/c from ED?: No Referrals: Gil Leyva MD [Primary Care Provider] - 1-2 days Time of Disposition: 22:30
[2018-06-13] MEDS ORDERED: SODIUM CHLORIDE 0.9% 1,000 ML IV ONE (21:13)
[2018-06-13 21:14] LABS: Basophils # (A) 0.1 k/uL (0-0.2); Basophils % (A) 1 %; Eosinophils # (A) 0.2 k/uL (0-0.7); Eosinophils % (A) 2 %; HGB 14.2 gm/dL (13.0-17.5); Lymphocytes # (A) 2.9 k/uL (1.0-4.8); Lymphocytes % (A) 30 %; MCH 27.7 pg (25.0-35.0); Mean Platelet Volume 6.8; Monocytes # (A) 0.6 k/uL (0-1.0); Monocytes % (A) 6 %; Neutrophils # (A) 5.8 k/uL (1.3-7.7); Neutrophils % (A) 60 %; Platelet Count 323 k/uL (150-450); RBC 5.11 m/uL (4.30-5.90); RDW 13.5 % (11.5-15.5); WBC 9.7 k/uL (3.8-10.6)
[2018-06-13] MEDS ORDERED: SODIUM CHLORIDE 0.9% 1,000 ML IV SCH (21:15)
[2018-06-13 21:26] LABS: ALT 53 U/L (21-72); AST 35 U/L (17-59); Albumin 4.2 g/dL (3.5-5.0); Alkaline Phosphatase 93 U/L (38-126); Anion Gap 9 mmol/L; Blood Urea Nitrogen 13 mg/dL (9-20); Calcium 9.3 mg/dL (8.4-10.2); Carbon Dioxide 26 mmol/L (22-30); Chloride 103 mmol/L (98-107); Glucose 120 mg/dL (74-99); Sodium 138 mmol/L (137-145); Total Bilirubin 0.4 mg/dL (0.2-1.3); Total Protein 7.2 g/dL (6.3-8.2)
--- NOTE | 2018-06-13 21:53 | XR ---
EXAMINATION TYPE: XR chest 2V DATE OF EXAM: 06/13/2018 COMPARISON: 06/19/2017 HISTORY: Cough TECHNIQUE: Frontal and lateral views of the chest are obtained. FINDINGS: Linear left basilar platelike atelectasis is seen. There is no focal air space opacity, ple ural effusion, or pneumothorax seen. The cardiac silhouette size is upper limits of normal. The os seous structures are intact. Cervical fusion device is incidentally seen. IMPRESSION: Linear left basilar platelike subsegmental atelectasis, otherwise no acute cardiopulmona ry process.
[2018-06-13] MEDS ORDERED: AZITHROMYCIN 250 MG TAB PO STA (22:22)
[2018-06-13] MEDS: AZITHROMYCIN 250 MG TAB PO STA ×2 (23:33)
[2018-06-13 23:34] VITALS: BP 140/83; PULSE 97; TEMP 97.9
== END 2018-06-13 23:34 | disposition home or self-care (01) ==
LOC: EC 19:29
DX: J06.9 Acute upper respiratory infection, unspecified (principal); R42 Dizziness and giddiness; J45.909 Unspecified asthma, uncomplicated; I20.9 Angina pectoris, unspecified; I10 Essential (primary) hypertension; G47.30 Sleep apnea, unspecified; H35.52 Pigmentary retinal dystrophy; F41.9 Anxiety disorder, unspecified; Z90.49 Acquired absence of other specified parts of digestive tract; Z98.1 Arthrodesis status; Z98.890 Other specified postprocedural states; Z99.89 Dependence on other enabling machines and devices; Z79.82 Long term (current) use of aspirin; Z79.899 Other long term (current) drug therapy; Z88.0 Allergy status to penicillin; Z88.2 Allergy status to sulfonamides; Z91.041 Radiographic dye allergy status
CPT/HCPCS: 36415; 71046; 80053; 84484; 85025; 93005; 96360; 96361; 99284

== ENCOUNTER 2018-09-08 06:18 | Day surgery (SDC) | payer MEDICARE ==
[2018-09-06 16:37] VITALS: BMI 34.5
[~2018-09-08 06:18] MED LIST changes: +DEXAMETHASONE SOD PHOSPHATE 10 MG/ML 1 ML VIAL IV ONE; -HYDROmorphone 0.5 MG/0.5 ML SYRINGE IVP PRN; +MIDAZOLAM 2 MG/2 ML VIAL IV PRN; -ONDANSETRON 4 MG/2 ML VIAL IVP ONE; +ceFAZolin 3 GM in SODIUM CHLORIDE 0.9% 100 ML IVPB ONE; -ceFAZolin IN SWFI 2 GM/20 ML SYRINGE IVP ONE; +fentaNYL (PF) 50 MCG/ML 2 ML AMP IV PRN
[2018-09-08 06:54] LABS: Glucose,Whole Blood 111 mg/dL (75-99)
[2018-09-08] MEDS ORDERED: fentaNYL (PF) 50 MCG/ML 2 ML AMP IVP ONE (07:32)
[2018-09-08] MEDS ORDERED: LIDOCAINE 1% INJ 10MG/ML (20 ML MDV) ONE (07:58)
[2018-09-08] MEDS ORDERED: MIDAZOLAM 2 MG/2 ML VIAL ONE (07:58)
[2018-09-08] MEDS ORDERED: GLYCOPYRROLATE 0.2 MG/ML 2 ML VIAL ONE (07:58)
[2018-09-08] MEDS ORDERED: PHENYLEPHRINE-0.9% NACL SYG 1 MG/10 ML SYRINGE ONE (07:58)
[2018-09-08] MEDS ORDERED: NEOSTIGMINE 1 MG/ML 10 ML VIAL ONE (07:58)
[2018-09-08] MEDS ORDERED: ePHEDrine SULFATE/0.9% NACL/PF 50 MG/5 ML SYRINGE IV ONE (07:58)
[2018-09-08] MEDS ORDERED: ROCURONIUM BROMIDE 10 MG/ML 10 ML VIAL IV ONE (07:58)
[2018-09-08] MEDS ORDERED: ROPIVACAINE 5 MG/ML 30 ML VIAL ONE (07:58)
[2018-09-08] MEDS ORDERED: PROPOFOL 10 MG/ML 20 ML VIAL IV ONE (07:58)
--- NOTE | 2018-09-08 08:00 | P.HPOR ---
History of Present Illness H&P Date: 09/08/18 The patient is a very pleasant 43-year-old male who previously underwent open reduction and internal fixation of an unstable Lisfranc variant injury. He has gone on to heal his injury and presents for routine hardware removal. He describes a recent increase in pain on the plantar aspect of his foot. Past Medical History Past Medical History: Asthma, Chest Pain / Angina, Diabetes Mellitus, Eye Disorder, GERD/Reflux, Hyperlipidemia, Hypertension, Liver Disease, Neurologic Disorder, Pneumonia, Prostate Disorder, Sleep Apnea/CPAP/BIPAP Additional Past Medical History / Comment(s): pain rt foot,Blind bilaterally ( sees light only) x-link retinitis pigmatosis. Hx tachycardia, NIDDM type II, "used to take Metformin, not on any medications right now, controlling with diet." CPAP use. Hx esophageal spasms, hx H pylori. Neurologic tremors, fatty liver, enlarged prostate, frequent night time urination. Hx sinus problems and asthma, now resolved. Seasonal allergies. History of Any Multi-Drug Resistant Organisms: None Reported Past Surgical History: Adenoidectomy, Cholecystectomy, Ear Surgery, Heart Catheterization, Orthopedic Surgery, Tonsillectomy Additional Past Surgical History / Comment(s): ORIF rt foot,Lap Cholecystectomy , 2016, Cervical Fusion C6-C7, 2011, Sinus Surgery, EGD, Cardiac Cath without intervention. Past Anesthesia/Blood Transfusion Reactions: Previous Problems w/ Anesthesia, Postoperative Nausea & Vomiting (PONV) Additional Past Anesthesia/Blood Transfusion Reaction / Comment(s): "Aspirated and went into cardiac arrest after neck fusion surgery." No hx blood transfusion Smoking Status: Never smoker - Past Family History Father Family Medical History: Cancer, Diabetes Mellitus, Deep Vein Thrombosis (DVT) Additional Family Medical History / Comment(s): Skin cancer. Mother Family Medical History: Diabetes Mellitus, Deep Vein Thrombosis (DVT) Brother(s) Family Medical History: No Reported History Sister(s) Family Medical History: No Reported History Daughter(s) Family Medical History: No Reported History Son(s) Family Medical History: No Reported History Medications and Allergies Home Medications Medication Instructions Recorded Confirmed Type Aspirin EC [Ecotrin Low Dose] 81 mg PO HS 02/28/16 09/06/18 History Cholecalciferol [Vitamin D3] 2,000 unit PO HS 02/28/16 09/06/18 History Citalopram Hydrobromide [CeleXA] 40 mg PO HS 02/28/16 09/06/18 History Diltiazem HCl [Diltiazem ER] 120 mg PO HS 02/28/16 09/06/18 History Montelukast [Singulair] 10 mg PO HS 02/28/16 09/06/18 History Nitroglycerin Sl Tabs [Nitrostat] 0.4 mg SUBLINGUAL Q5M PRN 02/28/16 09/06/18 History Tamsulosin [Flomax] 0.4 mg PO HS 07/31/16 09/06/18 History Losartan Potassium 50 mg PO HS 03/23/18 09/06/18 History Allergies Allergy/AdvReac Type Severity Reaction Status Date / Time Iodinated Contrast- Oral and Allergy high BP Verified 09/08/18 06:42 IV Dye [Iodinated Contrast Media - Oral and] Penicillins Allergy Rash/Hives Verified 09/08/18 06:42 Sulfa (Sulfonamide Allergy Unknown Verified 09/08/18 06:42 Antibiotics) Physical Examination The patient is alert and oriented. He is in no apparent distress and is easily able to answer questions. He demonstrates non-labored breathing with symmetric chest expansion. A focused examination of the right foot was conducted. There are healed incisions over the dorsum and medial aspect of the foot with no signs of infection. There is mild tenderness along the plantar aspect of the foot. The tips of the toes are warm and well perfused with brisk capillary refill. Sensation is intact to light touch throughout the right foot except for an area of. Incisional numbness along the dorsum. Results - Labs Labs: Abnormal Lab Results - Last 24 Hours (Table) 09/08/18 Range/Units 06:51 POC Glucose (mg/dL) 111 H (75-99) mg/dL Assessment and Plan Plan: The patient presents for routine hardware removal of his right foot Lisfranc injury. Following surgery he can weight-bear as tolerated in a tall boot.
[2018-09-08] MEDS ORDERED: LACTATED RINGERS 1,000 ML IV ONE (09:02)
--- NOTE | 2018-09-08 09:14 | P.OP ---
Date of Procedure: 09/08/18 Preoperative Diagnosis: 1. Right Lisfranc Fracture Postoperative Diagnosis: Same Procedure(s) Performed: 1. Right foot deep hardware removal 2. Manual application of joint stress for radiography by physician, right foot Anesthesia: DIMITRIS Surgeon: Aguilar Rios Cloud Services Architect #1: Brittaney Brown Estimated Blood Loss (ml): 10 IV fluids (ml): 1,000 Pathology: none sent Condition: stable Disposition: PACU Indications for Procedure: The patient is very pleasant 43-year-old male who previously sustained a right Lisfranc variant injury to his foot. He underwent open reduction and internal fixation previously. He wanted do well and heels fracture and present today for hardware removal. I met with the patient in preoperative holding to discuss surgery. The right leg was marked with my initials. I discussed the potential risks and complications with the patient previously in the office including but not limited to risk of anesthesia, superficial infection, deep infection, delayed wound healing, nonunion of his fractures, malunion of the Lisfranc joint, postoperative displacement, synthetic hardware, chronic pain, chronic swelling, posterior medical arthritis, DVT, PE, other medical complications, generalized satisfaction and surgery, failure to regain. Level of function, and possibly loss of life or limb. The patient voiced understanding of this and provided his verbal and written consent to go forward with surgery. Description of Procedure: The patient was identified prepped holding and the correct right leg was marked my initials. I reviewed the consent form with the patient IS questions were answered. The patient was then brought back to the operating. He was positioned on the OR table where general anesthetic and preoperative antibiotics were administered. A tourniquet was applied proximal aspect of the right leg. A bump was placed under the right buttock internally rotating the leg in neutral. The left leg was secured to the table with foam and tape. The patient's right leg was then prepped and draped in the standard sterile fashion. Prior to surgery timeout was performed identifying the correct patient , operative extremity, and procedure. The patient's leg was then elevated, exsanguinated with an Esmarch bandage, and the tourniquet was inflated to 250 mmHg. I began by making an incision over the healed dorsal scar over the mid foot. Dissection was carried down carefully to the subcuticular tissue with tenotomy scissors. The EHL tendon sheath was identified, incised longitudinally in line with the skin incision and the EHL was retracted laterally. I sharply elevated the periosteum over the plate which was sequentially removed. The 2 screws proximal screws were broken. I then made a stab incision over the medial midfoot at the site of the Lisfranc screw. Dissection was carried down carefully through the subcutaneous tissue and the screw was removed. Prior to surgery the patient was complaining that he felt the broken screws plantarly under his midfoot. A small incision was made plantarly under the midfoot at the site of this painful prominence. Dissection was carried down carefully to the subcutaneous to the tissue. A heavy needle otr refrigerated cdl truck driver was then used to remove both broken screws. Final fluoroscopic images were taken including a true AP of the foot which showed no widening of the Lisfranc joint between the base the second metatarsal medial cuneiform and all hardware removed. A manual abduction stress x-ray was performed which showed no instability at the first or second tarsometatarsal joint. I interpreted this as a stable Lisfranc complex. A lateral x-ray was taken showing complete hardware removal. All wounds were then copiously irrigated and closed in layers. A sterile dressing was applied. The tourniquet was let down, the patient was transferred from the OR table to a gurney and brought to PACU without the procedure well. Brittaney Padgett PA-C was required as a skilled nurse's assistant for patient positioning, surgical exposure, retraction, removal of hardware, and closure of wounds. Plan: The patient is going to be discharged home as an outpatient. He can weight-bear as tolerated in a tall cam boot. He'll follow-up in 2 weeks for weightbearing x-rays of the foot and wound evaluation.
[2018-09-08] MEDS ORDERED: BUPIVACAINE (PF) 0.25% 30 ML VIAL SQ ONE (09:22)
[2018-09-08] MEDS ORDERED: HYDROmorphone 1 MG/ML 1 ML SYRINGE IVP ONE ×3 (09:36→10:08)
[2018-09-08 09:51] VITALS: TEMP 97.6
[2018-09-08 09:54] VITALS: RESP 16
[2018-09-08] MEDS ORDERED: KETOROLAC 30 MG/ML 1 ML VIAL IVP ONE (09:56)
[2018-09-08 10:16] LABS: Glucose,Whole Blood 143 mg/dL (75-99)
[2018-09-08] MEDS ORDERED: oxyCODONE-APAP 5-325MG 1 EACH TAB PO ONE (10:45)
[2018-09-08 11:01] VITALS: BP 113/75; PULSE 103
--- NOTE | 2018-09-08 11:47 | XR ---
Fluoroscopy INDICATION: Pain FINDINGS: Images obtained: 3. IMPRESSIONS: 1. Documentation of fluoroscopy.
--- NOTE | 2018-09-08 11:48 | FL ---
Fluoroscopy INDICATION: Pain FINDINGS: Fluoroscopy time: 31 seconds. Images obtained: 3. IMPRESSIONS: 1. Documentation of fluoroscopy.
--- NOTE | 2018-09-08 14:37 | P.ONQ ---
Anesthesiology Proc Note - PNB - Peripheral Nerve Block Performed Right Popliteal Single Time Out Performed: Yes Procedure Start Time: 10:40 Procedure Stop Time: 10:45 Indication: Acute Post-Operative Pain, Analgesia, Requested by physician Sedation Type: Sedate with meaningful contact maintained Preparation: Sterile Prep Position: Supine Catheter: None Needle Types: On-Q Needle Size: 50mm (2"), 100mm (4") Needle Gauge: 20 Technique: Ultrasound Injectate: 0.5% Ropivacaine (see comment for volume) Blood Aspirated: No Pain Paresthesia on Injection Noted: No Resistance on Injection: Normal Events: Uneventful and Well Tolerated
== END 2018-09-08 11:35 | disposition home or self-care (01) ==
LOC: OR 06:18
PROVIDERS: ATTEND Orthopaedic Surgery
DX: T84.84XA Pain due to internal orthopedic prosthetic devices, implants and grafts, initial encounter (principal); I10 Essential (primary) hypertension; K21.9 Gastro-esophageal reflux disease without esophagitis; E11.9 Type 2 diabetes mellitus without complications; E78.5 Hyperlipidemia, unspecified; G47.30 Sleep apnea, unspecified; Z99.89 Dependence on other enabling machines and devices; K76.0 Fatty (change of) liver, not elsewhere classified; N40.0 Benign prostatic hyperplasia without lower urinary tract symptoms; Z87.01 Personal history of pneumonia (recurrent); G25.2 Other specified forms of tremor; H54.3 Unqualified visual loss, both eyes; H35.52 Pigmentary retinal dystrophy; Z79.82 Long term (current) use of aspirin; Z79.891 Long term (current) use of opiate analgesic; Z79.899 Other long term (current) drug therapy; Z88.0 Allergy status to penicillin; Z88.2 Allergy status to sulfonamides; Z91.041 Radiographic dye allergy status
CPT/HCPCS: 20680; 64450; 73620; J2250; J1100; J2710; J0690; J2001; J3010; J1885; J1170; J2795; J2370; J2704; 64493

== ENCOUNTER → 2018-10-29 | Outpatient (CLI) | payer MEDICARE ==
--- NOTE | 2018-10-29 11:19 | US ---
EXAMINATION TYPE: US venous doppler duplex LE RT DATE OF EXAM: 10/29/2018 11:07 AM COMPARISON: NONE CLINICAL HISTORY: M79.671 M79.661. Foot swelling. Had surgery on foot in Aug 2018 and still swollen. Patient is on baby aspirin. SIDE PERFORMED: Right TECHNIQUE: The lower extremity deep venous system is examined utilizing real time linear array sonog angelina with graded compression, doppler sonography and color-flow sonography. VESSELS IMAGED: External Iliac Vein (EIV) Common Femoral Vein Deep Femoral Vein Greater Saphenous Vein * Femoral Vein Popliteal Vein Small Saphenous Vein * Proximal Calf Veins (* superficial vessels) Right Leg: Negative for DVT IMPRESSION: No evidence for DVT
== END | disposition home or self-care (01) ==
LOC: RADUSWWP 10:29
PROVIDERS: ATTEND Orthopaedic Surgery
DX: M79.671 Pain in right foot (principal); M79.661 Pain in right lower leg; R60.9 Edema, unspecified

== ENCOUNTER → 2020-03-14 | Outpatient (CLI) | payer OTHER ==
--- NOTE | 2020-03-15 14:28 | MR ---
EXAMINATION TYPE: MR knee LT wo con DATE OF EXAM: 03/14/2020 COMPARISON: Left knee radiograph 03/05/2020 HISTORY: Pain in left knee. Fall. TECHNIQUE: Multiplanar, multisequence imaging of the left knee is performed without IV contrast. FINDINGS: MEDIAL MENISCUS: Anterior and posterior horns are intact without tear. LATERAL MENISCUS: There is a horizontal tear of the posterior horn and body of the lateral meniscus. CRUCIATE LIGAMENTS: The anterior and posterior cruciate ligaments are intact and unremarkable. COLLATERAL LIGAMENTS: The medial collateral ligament and lateral collateral ligament complex are inta ct and unremarkable. EXTENSOR MECHANISM: Visualized quadriceps and patellar tendons are intact. EFFUSION: Moderate suprapatellar joint effusion. POPLITEAL CYST: No popliteal/jon cyst. TRICOMPARTMENT SPACES: No evidence of narrowing. CARTILAGE: Mild fraying of the mid medial femoral condyle. BONE MARROW SIGNAL: No focal abnormal marrow signal is appreciated. OTHER: No additional significant abnormality is appreciated. IMPRESSION: 1. Horizontal tear of the lateral meniscus posterior horn and body. 2. Moderate supra patellar joint effusion. 3. Mild chondrosis of the mid medial femoral condyle.
== END | disposition home or self-care (01) ==
LOC: RADMRIMAIN 09:50
PROVIDERS: ATTEND Orthopaedic Surgery
DX: S83.282A Other tear of lateral meniscus, current injury, left knee, initial encounter (principal)

== ENCOUNTER → 2020-05-18 | Day surgery (SDC) | payer MEDICARE, OTHER ==
[2020-05-16 13:12] VITALS: BMI 31.8
--- NOTE | 2020-05-17 09:22 | HP ---
HISTORY AND PHYSICAL CHIEF COMPLAINT: Left knee pain. HISTORY OF PRESENT ILLNESS: The patient is a 44-year-old [employer] employee who presents after injuring his knee on 10/11/2019. He notes persistent lateral pain along with giving way. He has tried medications, therapy, bracing, and an injection with out significant relief. He notes daily symptoms. He has been working with restrictions. PAST MEDICAL HISTORY: Significant for hypertension. PAST SURGICAL HISTORY: Significant for cholecystectomy, sinus surgery, and cervical spine surgery. CURRENT MEDICATIONS: Toprol, losartan, Flomax, and baby aspirin. ALLERGIES: PENICILLIN and SULFA. FAMILY HISTORY: Negative. SOCIAL HISTORY: Negative for current tobacco or alcohol use. 16 POINT REVIEW OF SYSTEMS: Otherwise reviewed and is noncontributory. PHYSICAL EXAMINATION: On examination, the patient is approximately 6 foot tall, 255 pounds of endomorphic habitus. HEENT: Exam is nonfocal. NECK: Supple. He has painless passive motion of his left hip. Straight leg raise is negative. Active motion left knee -14 to 125 degrees of flexion. He has tenderness about the lateral joint line. He has a moderate effusion. Collaterals are stable, Maricel is negative, Alma Rosa's elicits lateral pain. His distal neurovascular appears intact in the left lower extremity. MRI report 03/14/2020, left knee shows evidence of a posterior lateral meniscal tear. IMPRESSION: Internal derangement left knee with symptomatic lateral meniscal tear. RECOMMENDATIONS: I talked to the patient at length regarding his condition along with treatment options. After thorough discussion, he opts to proceed with surgery. We will plan to proceed with left knee arthroscopic evaluation with probable partial lateral meniscectomy. We will likely perform that as an outpatient procedure. MMODL / IJN: [id number] /
[~2020-05-18] MED LIST changes: +HYDROcodone/APAP 7.5-325MG 1 EACH TAB ONE; +HYDROcodone/APAP 7.5-325MG 1 EACH TAB PO ONE; +HYDROmorphone (PF) 1 MG/ML ONE; +KETOROLAC 15 MG/ML 1 ML VIAL ONE; +LACTATED RINGERS 1,000 ML IV ONE; +LIDOCAINE 1% (10MG/ML) FOR IV START INTRADERMA PRN; -LIDOCAINE 1% 20 ML VIAL (10MG/ML) FOR IV START INTRADERMA PRN; +LIDOCAINE 1% INJ 10MG/ML (20 ML MDV) ONE; +MIDAZOLAM 2 MG/2 ML VIAL ONE; +ONDANSETRON 4 MG/2 ML VIAL IVP ONE; +PROPOFOL 10 MG/ML 20 ML VIAL IV ONE; +SCOPOLAMINE 1.5MG/72HR PATCH TRANSDERM ONE; +SUCCINYLCHOLINE CHLORIDE 100 MG/5 ML SYR IV ONE; -ceFAZolin 3 GM in SODIUM CHLORIDE 0.9% 100 ML IVPB ONE; +fentaNYL (PF) 50 MCG/ML 2 ML AMP IV ONE; -fentaNYL (PF) 50 MCG/ML 2 ML AMP IV PRN; +fentaNYL (PF) 50 MCG/ML 2 ML AMP ONE
[2020-05-18 07:32] LABS: Glucose,Whole Blood 115 mg/dL (75-99)
[2020-05-18 07:37] LABS: Basophils # (A) 0.1 k/uL (0-0.2); Basophils % (A) 1 %; Eosinophils # (A) 0.2 k/uL (0-0.7); Eosinophils % (A) 2 %; HCT 46.8 % (39.0-53.0); HGB 15.6 gm/dL (13.0-17.5); Lymphocytes # (A) 3.7 k/uL (1.0-4.8); Lymphocytes % (A) 47 %; MCH 28.6 pg (25.0-35.0); MCHC 33.4 g/dL (31.0-37.0); MCV 85.5 fL (80.0-100.0); Mean Platelet Volume 7.5; Monocytes # (A) 0.5 k/uL (0-1.0); Monocytes % (A) 6 %; Neutrophils # (A) 3.2 k/uL (1.3-7.7); Neutrophils % (A) 42 %; Platelet Count 257 k/uL (150-450); RBC 5.47 m/uL (4.30-5.90); RDW 13.4 % (11.5-15.5); WBC 7.8 k/uL (3.8-10.6)
--- NOTE | 2020-05-18 09:03 | P.OP ---
Date of Procedure: 05/18/20 Preoperative Diagnosis: Left knee internal derangement Postoperative Diagnosis: Left knee posterior lateral meniscal tear Procedure(s) Performed: Left knee arthroscopic partial lateral meniscectomy Anesthesia: MELODYA Surgeon: Fernando Bartlett Estimated Blood Loss (ml): 10 Pathology: none sent Condition: stable Disposition: PACU Indications for Procedure: The patient's a 44-year-old male who presents with progressive left knee pain and mechanical symptoms after a previous injury despite conservative treatment. A discussion of the risks and benefits of operative intervention versus continued conservative measures was made with patient. He opted to proceed with surgery. Operative risks to include infection, neurovascular injury, development of blood clots, possible incomplete resolution of symptoms, possible worsening symptoms and need for subsequent procedures was discussed. Informed consent was obtained. Operative Findings: As below Description of Procedure: The patient was brought to the operating room, and after induction of general anesthesia examined the left knee. Collaterals were stable, Maricel was negative, and posterior drawer was negative. The left lower extremity was prepped and draped in a normal fashion. A superior lateral portal was made through a 3 mm skin incision superior and lateral to the patella. This was used for outflow. A lateral portal was made through a 5 mm vertical skin incision lateral to the patella tendon above the joint line. Diagnostic arthroscopy was performed. On inspection of the medial compartment, no significant cartilage or meniscal pathology was noted. On inspection of the notch, the anterior cruciate ligament appeared to be intact. On inspection of the lateral compartment, a complex tear involving the posterior to middle one third of the lateral meniscus was noted in the white-red junction. This was not amenable to repair. This debrided back to stable base with straight baskets and a motorized shaver. The edges were contoured. On inspection of the patellofemoral articulation, there was some chondral fibrillation however no loose chondral fragments. The gutters were clear debris. The knee was then thoroughly irrigated. The portals were closed with Steri-Strips. A sterile dressing was applied in addition to a compression stocking. The patient was awoken from general anesthesia and transferred to recovery room in good condi tion. Blood loss was estimated at 10 mL. No complications were incurred.
[2020-05-18 09:16] VITALS: TEMP 98
[2020-05-18] MEDS: HYDROmorphone 0.5 MG/0.5 ML SYRINGE IVP PRN ×3 (09:19→09:35)
[2020-05-18 09:31] VITALS: RESP 16
[2020-05-18 11:35] VITALS: BP 107/69; PULSE 61
== END | disposition home or self-care (01) ==
LOC: OR 06:51
PROVIDERS: ATTEND Orthopaedic Surgery
DX: S83.282A Other tear of lateral meniscus, current injury, left knee, initial encounter (principal); X58.XXXA Exposure to other specified factors, initial encounter; I10 Essential (primary) hypertension; Z90.49 Acquired absence of other specified parts of digestive tract; I25.10 Atherosclerotic heart disease of native coronary artery without angina pectoris; J45.909 Unspecified asthma, uncomplicated; G47.33 Obstructive sleep apnea (adult) (pediatric); E11.9 Type 2 diabetes mellitus without complications; N40.0 Benign prostatic hyperplasia without lower urinary tract symptoms; R25.1 Tremor, unspecified; H54.7 Unspecified visual loss; F41.9 Anxiety disorder, unspecified; Z98.1 Arthrodesis status; K21.9 Gastro-esophageal reflux disease without esophagitis; K22.4 Dyskinesia of esophagus; Z87.01 Personal history of pneumonia (recurrent); Z86.74 Personal history of sudden cardiac arrest; Z79.82 Long term (current) use of aspirin; Z98.890 Other specified postprocedural states; Z79.899 Other long term (current) drug therapy; Z88.0 Allergy status to penicillin; Z88.2 Allergy status to sulfonamides; Z91.041 Radiographic dye allergy status
CPT/HCPCS: 85025; 29881; J2250; J1100; J0690; J2405; J2001; J3010; J1170 ×2; J1885; J0330; J2704

== ENCOUNTER 2022-07-01 19:47 | Observation (INO) | payer MEDICARE ==
[2022-07-01 19:54] VITALS: BP 143/88; PULSE 90; RESP 18; TEMP 97.8
[2022-07-01] MEDS ORDERED: NITROGLYCERIN SL TABS 0.4 MG TAB SUBLINGUAL STA ×3 (20:11)
[2022-07-01] MEDS ORDERED: ASPIRIN 81 MG PO STA (20:11)
--- NOTE | 2022-07-01 20:14 | ED ---
General Adult HPI - General Chief complaint: Chest Pain Stated complaint: Chest Pain Time Seen by Provider: 07/01/22 19:58 Source: patient, RN notes reviewed Mode of arrival: ambulatory Limitations: no limitations - History of Present Illness Initial comments: Patient is a pleasant 46-year-old male presenting to the emergency department with concerns for chest discomfort. Onset of symptoms was around 4:30. Patient was at rest. Patient is having chest pressure/heaviness. Patient states there is ache to his left arm as well. Patient states there may be mild dyspnea. Patient is having some nausea. Patient states he is also been a little bit sw eaty at times. Patient denies history of similar symptoms previously. Discomfort is rated 7/10. No leg pain or leg swelling. - Related Data Home Medications Medication Instructions Recorded Confirmed Aspirin EC [Ecotrin Low Dose] 81 mg PO HS 02/28/16 05/18/20 Cholecalciferol [Vitamin D3] 2,000 unit PO HS 02/28/16 05/18/20 Nitroglycerin Sl Tabs [Nitrostat] 0.4 mg SUBLINGUAL Q5M PRN 02/28/16 05/18/20 dilTIAZem HCL [Diltiazem ER] 120 mg PO HS 02/28/16 05/18/20 Tamsulosin [Flomax] 0.4 mg PO HS 07/31/16 05/18/20 Losartan Potassium 50 mg PO HS 03/23/18 05/18/20 Multivitamins, Thera [Multivitamin 1 tab PO DAILY 05/16/20 05/18/20 (formulary)] Previous Rx's Medication Instructions Recorded HYDROcodone/APAP 7.5-325MG [Monon 1 each PO Q6HR PRN #28 tab 05/18/20 7.5] Allergies Allergy/AdvReac Type Severity Reaction Status Date / Time Iodinated Contrast Media Allergy high BP Verified 07/01/22 19:54 [Iodinated Contrast Media - Oral and] Penicillins Allergy Rash/Hives Verified 07/01/22 19:54 Sulfa (Sulfonamide Allergy Unknown Verified 07/01/22 19:54 Antibiotics) Review of Systems ROS Statement: Those systems with pertinent positive or pertinent negative responses have been documented in the HPI. ROS Other: All systems not noted in ROS Statement are negative. Constitutional: Denies: fever Eyes: Denies: eye pain ENT: Denies: ear pain Respiratory: Reports: as per HPI. 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 Hx tachycardia, Diet controlled DM. Uses CPAP, Hx esophageal spasms, hx H pylori. Neurologic tremors, fatty liver, enlarged prostate, frequent night time urination. Hx sinus problems and asthma, now resolved. Seasonal allergies. History of Any Multi-Drug Resistant Organisms: None Reported Past Surgical History: Adenoidectomy, Cholecystectomy, Ear Surgery, Heart Catheterization, Orthopedic Surgery, Tonsillectomy Additional Past Surgical History / Comment(s): ORIF rt foot, Cervical Fusion C6- C7, 2011, Sinus Surgery, EGD. Past Anesthesia/Blood Transfusion Reactions: Previous Problems w/ Anesthesia, Postoperative Nausea & Vomiting (PONV) Additional Past Anesthesia/Blood Transfusion Reaction / Comment(s): "Aspirated and went into cardiac arrest after neck fusion surgery after adm. to floor from his surgery. States he is not sure if he aspirated or not. States he was in ICU for about one month with multiple problems. States he needed rehab after his hos pitalization. Past Psychological History: Anxiety Smoking Status: Never smoker Past Alcohol Use History: None Reported Past Drug Use History: None Reported - Past Family History Father Family Medical History: Cancer, Diabetes Mellitus, Deep Vein Thrombosis (DVT) Additional Family Medical History / Comment(s): Skin cancer. Mother Family Medical History: Diabetes Mellitus, Deep Vein Thrombosis (DVT) Brother(s) Family Medical History: No Reported History Sister(s) Family Medical History: No Reported History Daughter(s) Family Medical History: No Reported History Son(s) Family Medical History: No Reported History General Exam Limitations: no limitations General appearance: alert, in no apparent distress Head exam: Present: normocephalic Eye exam: Present: normal appearance Neck exam: Present: normal inspection Respiratory exam: Present: normal lung sounds bilaterally. Absent: chest wall tenderness Cardiovascular Exam: Present: regular rate, normal rhythm Expanded Peripheral pulses: 2+: Radial (R), Radial (L), Dorsalis Pedis (R), Dorsalis Pedis (L) GI/Abdominal exam: Present: soft. Absent: tenderness Extremities exam: Present: normal inspection Neurological exam: Present: alert Psychiatric exam: Present: normal affect, normal mood Skin exam: Present: normal color Course Vital Signs 07/01/22 19:52 Temperature 97.8 F Pulse Rate 90 Respiratory 18 Rate Blood Pressure 143/88 O2 Sat by Pulse 98 Oximetry EKG Findings - EKG Comments: EKG Findings:: Sinus rhythm rate 86. TX 151. QRS 95. QT 368. QTC 412. Normal axis. Normal QRS. No acute ST change. - EKG Results: EKG: interpreted by BRANDIN Medical Decision Making - Medical Decision Making Patient reevaluated and somewhat improved with nitroglycerin. Patient updated on results and plan. Dr. Lewis has been paged for admission, covering Dr. Leyva - Lab Data Result diagrams: 07/01/22 20:28 07/01/22 20:28 Lab Results 07/01/22 07/01/22 07/01/22 Range/Units 20:28 20:28 20:28 WBC 9.5 (3.8-10.6) k/uL RBC 5.41 (4.30-5.90) m/uL Hgb 15.9 (13.0-17.5) gm/dL Hct 44.8 (39.0-53.0) % MCV 82.8 (80.0-100.0) fL MCH 29.4 (25.0-35.0) pg MCHC 35.5 (31.0-37.0) g/dL RDW 13.0 (11.5-15.5) % Plt Count 255 (150-450) k/uL MPV 7.8 Neutrophils % 53 % Lymphocytes % 37 % Monocytes % 5 % Eosinophils % 2 % Basophils % 1 % Neutrophils # 5.0 (1.3-7.7) k/uL Lymphocytes # 3.5 (1.0-4.8) k/uL Monocytes # 0.5 (0-1.0) k/uL Eosinophils # 0.2 (0-0.7) k/uL Basophils # 0.1 (0-0.2) k/uL PT 10.3 (9.0-12.0) sec INR 1.0 (<1.2) APTT 24.9 (22.0-30.0) sec D-Dimer 0.50 (<0.60) mg/L FEU Sodium 139 (137-145) mmol/L Potassium 4.0 (3.5-5.1) mmol/L Chloride 106 (98-107) mmol/L Carbon Dioxide 25 (22-30) mmol/L Anion Gap 8 mmol/L BUN 14 (9-20) mg/dL Creatinine 0.71 (0.66-1.25) mg/dL Est GFR (CKD-EPI)AfAm >90 (>60 ml/min/1.73 sqM) Est GFR (CKD-EPI)NonAf >90 (>60 ml/min/1.73 sqM) Glucose 117 H (74-99) mg/dL Calcium 8.9 (8.4-10.2) mg/dL Magnesium 1.8 (1.6-2.3) mg/dL Total Bilirubin 0.4 (0.2-1.3) mg/dL AST 30 (17-59) U/L ALT 34 (4-49) U/L Alkaline Phosphatase 67 (38-126) U/L Troponin I (0.000-0.034) ng/mL Total Protein 6.9 (6.3-8.2) g/dL Albumin 4.2 (3.5-5.0) g/dL 07/01/22 Range/Units 20:28 WBC (3.8-10.6) k/uL RBC (4.30-5.90) m/uL Hgb (13.0-17.5) gm/dL Hct (39.0-53.0) % MCV (80.0-100.0) fL MCH (25.0-35.0) pg MCHC (31.0-37.0) g/dL RDW (11.5-15.5) % Plt Count (150-450) k/uL MPV Neutrophils % % Lymphocytes % % Monocytes % % Eosinophils % % Basophils % % Neutrophils # (1.3-7.7) k/uL Lymphocytes # (1.0-4.8) k/uL Monocytes # (0-1.0) k/uL Eosinophils # (0-0.7) k/uL Basophils # (0-0.2) k/uL PT (9.0-12.0) sec INR (<1.2) APTT (22.0-30.0) sec D-Dimer (<0.60) mg/L FEU Sodium (137-145) mmol/L Potassium (3.5-5.1) mmol/L Chloride (98-107) mmol/L Carbon Dioxide (22-30) mmol/L Anion Gap mmol/L BUN (9-20) mg/dL Creatinine (0.66-1.25) mg/dL Est GFR (CKD-EPI)AfAm (>60 ml/min/1.73 sqM) Est GFR (CKD-EPI)NonAf (>60 ml/min/1.73 sqM) Glucose (74-99) mg/dL Calcium (8.4-10.2) mg/dL Magnesium (1.6-2.3) mg/dL Total Bilirubin (0.2-1.3) mg/dL AST (17-59) U/L ALT (4-49) U/L Alkaline Phosphatase (38-126) U/L Troponin I <0.012 (0.000-0.034) ng/mL Total Protein (6.3-8.2) g/dL Albumin (3.5-5.0) g/dL - Radiology Data Interpreted by me: Chest x-ray shows no acute process Disposition Clinical Impression: Chest pain Disposition: ADMITTED IP TO THIS HOSP Is patient prescribed a controlled substance at d/c from ED?: No Referrals: Gil Leyva MD [Primary Care Provider] - 1-2 days Time of Disposition: 21:13
[2022-07-01 20:32] LABS: Basophils # (A) 0.1 k/uL (0-0.2); Basophils % (A) 1 %; Eosinophils # (A) 0.2 k/uL (0-0.7); Eosinophils % (A) 2 %; HCT 44.8 % (39.0-53.0); HGB 15.9 gm/dL (13.0-17.5); Lymphocytes # (A) 3.5 k/uL (1.0-4.8); Lymphocytes % (A) 37 %; MCH 29.4 pg (25.0-35.0); MCHC 35.5 g/dL (31.0-37.0); MCV 82.8 fL (80.0-100.0); Mean Platelet Volume 7.8; Monocytes # (A) 0.5 k/uL (0-1.0); Monocytes % (A) 5 %; Neutrophils % (A) 53 %; Platelet Count 255 k/uL (150-450); RBC 5.41 m/uL (4.30-5.90); WBC 9.5 k/uL (3.8-10.6)
[2022-07-01 20:42] LABS: ALT 34 U/L (4-49); AST 30 U/L (17-59); African American GFR (CKD) >90 (>60 ml/min/1.73 sqM); Albumin 4.2 g/dL (3.5-5.0); Alkaline Phosphatase 67 U/L (38-126); Anion Gap 8 mmol/L; Blood Urea Nitrogen 14 mg/dL (9-20); Calcium 8.9 mg/dL (8.4-10.2); Carbon Dioxide 25 mmol/L (22-30); Chloride 106 mmol/L (98-107); Glucose 117 mg/dL (74-99); Magnesium 1.8 mg/dL (1.6-2.3); Non-African American GFR(CKD) >90 (>60 ml/min/1.73 sqM); Sodium 139 mmol/L (137-145); Total Bilirubin 0.4 mg/dL (0.2-1.3); Total Protein 6.9 g/dL (6.3-8.2)
[2022-07-01 20:46] LABS: Partial Thromboplastin Time 24.9 sec (22.0-30.0); Prothrombin Time 10.3 sec (9.0-12.0)
--- NOTE | 2022-07-01 20:47 | XR ---
EXAMINATION TYPE: XR chest 2V DATE OF EXAM: 07/01/2022 8:33 PM COMPARISON: Chest radiographs from 06/13/2018. TECHNIQUE: XR chest 2V Frontal and lateral views of the chest. CLINICAL INDICATION:Male, 46 years old with history of Chest Pain; FINDINGS: Lungs/Pleura: There is no evidence of pleural effusion, focal consolidation, or pneumothorax. Pulmonary vascularity: Unremarkable. Heart/mediastinum: Cardiomediastinal silhouette is unremarkable. Musculoskeletal: No acute osseous pathology. IMPRESSION: No acute cardiopulmonary disease/process.
[2022-07-01] MEDS ORDERED: NITROGLYCERIN SL TABS 0.4 MG TAB SUBLINGUAL PRN (21:13)
[2022-07-02] MEDS ORDERED: NITROGLYCERIN OINT 1 INCH/GM PACKET TOPICAL SCH
[2022-07-02] MEDS ORDERED: ASPIRIN 325 MG TAB PO SCH (09:00)
== END 2022-07-01 23:50 | disposition left against medical advice (07) ==
LOC: EC 19:47 → 6NMEDSUR 21:15
PROVIDERS: ADMIT Hospitalist; ATTEND Hospitalist
DX: R07.89 Other chest pain (principal); R11.0 Nausea; R61 Generalized hyperhidrosis; Z53.29 Procedure and treatment not carried out because of patient's decision for other reasons; E11.9 Type 2 diabetes mellitus without complications; I10 Essential (primary) hypertension; J45.909 Unspecified asthma, uncomplicated; G47.30 Sleep apnea, unspecified; K21.9 Gastro-esophageal reflux disease without esophagitis; N40.1 Benign prostatic hyperplasia with lower urinary tract symptoms; R35.1 Nocturia; H30.93 Unspecified chorioretinal inflammation, bilateral; H54.7 Unspecified visual loss; K76.0 Fatty (change of) liver, not elsewhere classified; R25.1 Tremor, unspecified; F41.9 Anxiety disorder, unspecified; Z79.82 Long term (current) use of aspirin; Z79.899 Other long term (current) drug therapy; Z88.0 Allergy status to penicillin; Z88.2 Allergy status to sulfonamides; Z91.041 Radiographic dye allergy status; Z87.01 Personal history of pneumonia (recurrent); Z87.19 Personal history of other diseases of the digestive system; Z98.1 Arthrodesis status; Z86.74 Personal history of sudden cardiac arrest; Z83.3 Family history of diabetes mellitus; Z80.8 Family history of malignant neoplasm of other organs or systems; Z82.49 Family history of ischemic heart disease and other diseases of the circulatory system
CPT/HCPCS: 99285; 36415; 93005; 85379; 80053; 83735; 84484; 85025; 85610; 85730; 71046; G0378

== ENCOUNTER 2023-07-29 15:43 | Emergency (ER) | payer MEDICARE ==
[2023-07-29 16:12] VITALS: TEMP 98.3
--- NOTE | 2023-07-29 16:29 | ED ---
Chest Pain HPI - General Source: patient Mode of arrival: ambulatory Limitations: no limitations <Bean Rabago - Last Filed: 07/29/23 16:28> - History of Present Illness MD Complaint: chest pain -: week(s) Onset: during rest Pain Location: left chest, right chest Pain Radiation: LUE Severity: mild Quality: aching Consistency: constant Improves With: nothing Worsens With: inspiration Other Symptoms: cough Treatments Prior to Arrival: none <Robert Diana - Last Filed: 07/29/23 22:38> - General Chief Complaint: Chest Pain Stated Complaint: Chest Pain, Cough Time Seen by Provider: 07/29/23 16:28 - History of Present Illness Initial Comments: Quicknote: 48 y/o male presenting with CC of chest pain, cough, shortness of breath. Electronically signed: Bean Rabago PA-C (Bean Rabago) this patient is 48-year-old man here to have evaluation for cough, chest pain. (Robert Diana) - Related Data Home Medications Medication Instructions Recorded Confirmed Aspirin EC [Ecotrin Low Dose] 81 mg PO HS 02/28/16 07/01/22 Nitroglycerin Sl Tabs [Nitrostat] 0.4 mg SUBLINGUAL Q5M PRN 02/28/16 07/01/22 Losartan Potassium 50 mg PO HS 03/23/18 07/01/22 Albuterol Inhaler [Ventolin Hfa 2 puff INHALATION RT-Q6H PRN 07/01/22 07/01/22 Inhaler] Previous Rx's Medication Instructions Recorded Albuterol Inhaler [Ventolin Hfa 2 puff INHALATION Q4HR PRN #8 gm 07/29/23 Inhaler] predniSONE [Deltasone] 20 mg PO BID #8 tab 07/29/23 Allergies Allergy/AdvReac Type Severity Reaction Status Date / Time Iodinated Contrast Media Allergy high BP Verified 07/29/23 15:54 [Iodinated Contrast Media - Oral and] Penicillins Allergy Rash/Hives Verified 07/29/23 15:54 Sulfa (Sulfonamide Allergy Unknown Verified 07/29/23 15:54 Antibiotics) Review of Systems ROS Other: All systems not noted in ROS Statement are negative. <Bean Rabago - Last Filed: 07/29/23 16:28> ROS Other: All systems not noted in ROS Statement are negative. Constitutional: Denies: fever, chills Respiratory: Reports: cough, wheezes. Denies: dyspnea Cardiovascular: Reports: chest pain. Denies: palpitations, orthopnea, edema, syncope Gastrointestinal: Denies: abdominal pain, nausea, vomiting Genitourinary: Denies: dysuria Musculoskeletal: Reports: back pain Skin: Denies: rash Neurological: Denies: headache, weakness, numbness <LebronRobert - Last Filed: 07/29/23 22:38> ROS Statement: Those systems with pertinent positive or pertinent negative responses have been documented in the HPI. 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 Hx tachycardia, Diet controlled DM. Uses CPAP, Hx esophageal spasms, hx H pylori. Neurologic tremors, fatty liver, enlarged prostate, frequent night time urination. Hx sinus problems and asthma, now resolved. Seasonal allergies. History of Any Multi-Drug Resistant Organisms: None Reported Past Surgical History: Adenoidectomy, Cholecystectomy, Ear Surgery, Heart Catheterization, Orthopedic Surgery, Tonsillectomy Additional Past Surgical History / Comment(s): ORIF rt foot, Cervical Fusion C6- C7, 2012, Sinus Surgery, EGD. Past Anesthesia/Blood Transfusion Reactions: Previous Problems w/ Anesthesia, Postoperative Nausea & Vomiting (PONV) Additional Past Anesthesia/Blood Transfusion Reaction / Comment(s): "Aspirated and went into cardiac arrest after neck fusion surgery after adm. to floor from his surgery. States he is not sure if he aspirated or not. States he was in ICU for about one month with multiple problems. States he needed rehab after his hospitalization. Past Psychological History: Anxiety Smoking Status: Never smoker Past Alcohol Use History: None Reported Past Drug Use History: None Reported - Past Family History Father Family Medical History: Cancer, Diabetes Mellitus, Deep Vein Thrombosis (DVT) Additional Family Medical History / Comment(s): Skin cancer. Mother Family Medical History: Diabetes Mellitus, Deep Vein Thrombosis (DVT) Brother(s) Family Medical History: No Reported History Sister(s) Family Medical History: No Reported History Daughter(s) Family Medical History: No Reported History Son(s) Family Medical History: No Reported History <Bean Rabago - Last Filed: 07/29/23 16:28> General Exam Limitations: no limitations General appearance: alert, in no apparent distress Head exam: Present: atraumatic, normocephalic Eye exam: Present: normal appearance Neck exam: Present: normal inspection Respiratory exam: Absent: respiratory distress Neurological exam: Present: alert, oriented X3 Psychiatric exam: Present: normal affect, normal mood <Bean Rabago - Last Filed: 07/29/23 16:28> General appearance: alert, in no apparent distress Head exam: Present: atraumatic, normocephalic Neck exam: Present: normal inspection Respiratory exam: Present: wheezes, other (moderate cough during exam). Absent: respiratory distress, rales, rhonchi, stridor, chest wall tenderness, accessory muscle use, decreased breath sounds Cardiovascular Exam: Present: regular rate, normal rhythm, normal heart sounds. Absent: systolic murmur, diastolic murmur, rubs, gallop GI/Abdominal exam: Present: soft. Absent: distended, tenderness, guarding, rebound, rigid, mass Extremities exam: Present: normal inspection, normal capillary refill. Absent: pedal edema, calf tenderness Back exam: Present: normal inspection. Absent: CVA tenderness (R), CVA tenderness (L) Neurological exam: Present: alert Skin exam: Present: warm, dry, intact, normal color. Absent: rash <Robert Diana - Last Filed: 07/29/23 22:38> Course Vital Signs 07/29/23 07/29/23 07/29/23 15:50 21:30 22:03 Temperature 98.3 F Pulse Rate 109 H 94 Respiratory 20 26 H Rate Blood Pressure 140/85 O2 Sat by Pulse 96 Oximetry 07/29/23 22:16 Temperature Pulse Rate 94 Respiratory Rate Blood Pressure O2 Sat by Pulse Oximetry Disposition <Bean Rabago - Last Filed: 07/29/23 16:28> Is patient prescribed a controlled substance at d/c from ED?: No <Robert Diana - Last Filed: 07/29/23 22:38> Clinical Impression: Reactive airway disease Disposition: HOME SELF-CARE Condition: Good Instructions (If sedation given, give patient instructions): Chest Pain (ED), Reactive Airways Disease (ED) Prescriptions: predniSONE [Deltasone] 20 mg PO BID #8 tab Albuterol Inhaler [Ventolin Hfa Inhaler] 2 puff INHALATION Q4HR PRN #8 gm PRN Reason: Wheezing Referrals: Gil Leyva [Primary Care Provider] - 1-2 days
--- NOTE | 2023-07-29 16:41 | XR ---
EXAMINATION TYPE: XR chest 2V DATE OF EXAM: 07/29/2023 4:36 PM CLINICAL INDICATION:Male, 48 years old with history of Chest Pain; [facility] COMPARISON: Chest radiographs from 07/01/2022. TECHNIQUE: XR chest 2V Frontal and lateral views of the chest. FINDINGS: Lungs/Pleura: There is no evidence of pleural effusion, focal consolidation, or pneumothorax. Pulmonary vascularity: Unremarkable. Heart/mediastinum: Cardiomediastinal silhouette is unremarkable. Musculoskeletal: No acute osseous pathology. There is fixation hardware in the lower cervical spine. Other findings: None IMPRESSION: No acute cardiopulmonary disease/process.
[2023-07-29 19:47] LABS: Basophils # (A) 0.1 k/uL (0-0.2); Basophils % (A) 1 %; Eosinophils # (A) 0.2 k/uL (0-0.7); Eosinophils % (A) 2 %; HCT 48.7 % (39.0-53.0); HGB 16.6 gm/dL (13.0-17.5); Lymphocytes % (A) 40 %; MCH 28.3 pg (25.0-35.0); MCV 83.2 fL (80.0-100.0); Mean Platelet Volume 7.3; Monocytes # (A) 0.5 k/uL (0-1.0); Monocytes % (A) 5 %; Neutrophils # (A) 5.1 k/uL (1.3-7.7); Neutrophils % (A) 50 %; Platelet Count 263 k/uL (150-450); RBC 5.85 m/uL (4.30-5.90); RDW 13.3 % (11.5-15.5); WBC 10.1 k/uL (3.8-10.6)
[2023-07-29 20:03] LABS: ALT 37 U/L (4-49); AST 30 U/L (17-59); African American GFR (CKD) >90 (>60 ml/min/1.73 sqM); Albumin 4.5 g/dL (3.5-5.0); Alkaline Phosphatase 70 U/L (38-126); Anion Gap 10 mmol/L; Blood Urea Nitrogen 13 mg/dL (9-20); Calcium 9.4 mg/dL (8.4-10.2); Carbon Dioxide 24 mmol/L (22-30); Chloride 105 mmol/L (98-107); Glucose 100 mg/dL (74-99); Magnesium 1.9 mg/dL (1.6-2.3); Non-African American GFR(CKD) >90 (>60 ml/min/1.73 sqM); Potassium 3.9 mmol/L (3.5-5.1); Sodium 139 mmol/L (137-145); Total Bilirubin 0.5 mg/dL (0.2-1.3); Total Protein 7.4 g/dL (6.3-8.2)
[2023-07-29 20:37] LABS: Partial Thromboplastin Time 25.7 sec (22.0-30.0); Prothrombin Time 10.7 sec (10.0-12.5)
[2023-07-29] MEDS ORDERED: predniSONE 20 MG TAB PO STA (21:46)
[2023-07-29] MEDS ORDERED: ALBUTEROL NEBULIZED 2.5 MG/3 ML INHALATION STA (21:46)
[2023-07-29 22:19] VITALS: PULSE 94
[2023-07-29 22:41] VITALS: BP 129/78; RESP 17
== END 2023-07-29 23:14 | disposition home or self-care (01) ==
LOC: EC 15:43
DX: J45.909 Unspecified asthma, uncomplicated (principal); R00.0 Tachycardia, unspecified; E11.9 Type 2 diabetes mellitus without complications; Z79.82 Long term (current) use of aspirin; Z79.899 Other long term (current) drug therapy; Z88.0 Allergy status to penicillin; Z88.2 Allergy status to sulfonamides; Z91.041 Radiographic dye allergy status
CPT/HCPCS: 36415; 94640; 85379; 80053; 83735; 84484; 85025; 85610; 85730; 87636; 71046; 99285; J7512

== ENCOUNTER 2023-12-03 10:54 | Observation (INO) | payer MEDICARE ==
[2023-12-03] MEDS: SODIUM CHLORIDE 0.9% 500 ML 500 ML IV ONE ×2 (11:50→15:16)
[2023-12-03] MEDS: ACETAMINOPHEN IV (For NPO) 1,000 MG in EMPTY BAG 1 BAG IVPB ONE (11:50)
[2023-12-03] MEDS: HYDROmorphone 0.5 MG/0.5 ML SYRINGE IVP STA (11:51)
[2023-12-03 11:58] LABS: Basophils # (A) 0.1 k/uL (0-0.2); Basophils % (A) 1 %; Eosinophils # (A) 0.1 k/uL (0-0.7); Eosinophils % (A) 1 %; HGB 17.6 gm/dL (13.0-17.5); Lymphocytes # (A) 3.6 k/uL (1.0-4.8); Lymphocytes % (A) 45 %; MCH 28.3 pg (25.0-35.0); MCHC 33.2 g/dL (31.0-37.0); MCV 85.2 fL (80.0-100.0); Mean Platelet Volume 8.3; Monocytes # (A) 0.5 k/uL (0-1.0); Monocytes % (A) 6 %; Neutrophils # (A) 3.6 k/uL (1.3-7.7); Neutrophils % (A) 44 %; Platelet Count 231 k/uL (150-450); RBC 6.22 m/uL (4.30-5.90); RDW 13.3 % (11.5-15.5)
[2023-12-03 12:14] LABS: INR 0.9 (<1.2); Partial Thromboplastin Time 26.5 sec (22.0-30.0); Prothrombin Time 10.3 sec (10.0-12.5)
[2023-12-03 12:23] LABS: ALT 45 U/L (4-49); AST 39 U/L (17-59); African American GFR (CKD) >90 (>60 ml/min/1.73 sqM); Albumin 4.5 g/dL (3.5-5.0); Alkaline Phosphatase 82 U/L (38-126); Anion Gap 7 mmol/L; Blood Urea Nitrogen 10 mg/dL (9-20); Calcium 9.3 mg/dL (8.4-10.2); Carbon Dioxide 24 mmol/L (22-30); Chloride 108 mmol/L (98-107); Glucose 127 mg/dL (74-99); Lipase 113 U/L (23-300); Non-African American GFR(CKD) >90 (>60 ml/min/1.73 sqM); Potassium 4.4 mmol/L (3.5-5.1); Sodium 139 mmol/L (137-145); Total Bilirubin 0.6 mg/dL (0.2-1.3); Total Protein 7.5 g/dL (6.3-8.2)
--- NOTE | 2023-12-03 12:23 | XR ---
EXAMINATION TYPE: XR chest 2V DATE OF EXAM: 12/03/2023 COMPARISON: 07/29/2023 HISTORY: 48-year-old male with chest pain TECHNIQUE: PA and lateral views FINDINGS: The cardiomediastinal silhouette, aorta, and pulmonary vasculature are within normal limits. Strandy atelectasis at the left base. Otherwise, lungs and pleural spaces are clear. ACDF hardware. IMPRESSION: Strandy left basilar atelectasis. Otherwise, no acute cardiopulmonary process.
[2023-12-03 12:28] LABS: NT-Pro-B-Type Natriuretic Pept <20 pg/mL
--- NOTE | 2023-12-03 13:29 | ED ---
General Adult HPI - General Chief complaint: Chest Pain Stated complaint: Chest pain,Dizziness Time Seen by Provider: 12/03/23 11:12 Source: patient, RN notes reviewed, old records reviewed Mode of arrival: ambulatory Limitations: no limitations - History of Present Illness Initial comments: 48 yo male presenting for evaluation of chest pain which began yesterday. Patient also reports headache. Pain radiates to the back. He denies vomiting or diaphoresis. He does not have prior history of CAD. Patient denies extremities to the arm. No fever. No cough. Mild associated dyspnea. - Related Data Home Medications Medication Instructions Recorded Confirmed Aspirin EC [Ecotrin Low Dose] 81 mg PO HS 02/28/16 12/03/23 Nitroglycerin Sl Tabs [Nitrostat] 0.4 mg SUBLINGUAL Q5M PRN 02/28/16 12/03/23 Losartan Potassium 50 mg PO HS 03/23/18 12/03/23 Albuterol Inhaler [Ventolin Hfa 2 puff INHALATION RT-Q6H PRN 07/01/22 12/03/23 Inhaler] Fish Oil/Dha/Epa [Fish Oil 1,200 1 cap PO HS 12/03/23 12/03/23 mg Fish Oil] Fluticasone Nasal [place] [Flonase 1 - 2 spray EA NOSTRIL BID PRN 12/03/23 12/03/23 Nasal [place]] Metoprolol Succinate [Metoprolol 25 mg PO DIRECTED 12/03/23 12/03/23 Succinate ER] Multivitamins, Thera [Multivitamin 1 tab PO HS 12/03/23 12/03/23 (formulary)] Tamsulosin [Flomax] 0.4 mg PO HS 12/03/23 12/03/23 Ubidecarenone [Coenzyme Q10] 100 mg PO HS 12/03/23 12/03/23 tadalafiL 20 mg PO Q48H 12/03/23 12/03/23 Allergies Allergy/AdvReac Type Severity Reaction Status Date / Time Iodinated Contrast Media Allergy high BP Verified 12/03/23 13:36 [Iodinated Contrast Media - Oral and] Penicillins Allergy Rash/Hives Verified 12/03/23 13:36 Sulfa (Sulfonamide Allergy Unknown Verified 12/03/23 13:36 Antibiotics) Childhood Review of Systems ROS Statement: Those systems with pertinent positive or pertinent negative responses have been documented in the HPI. ROS Other: All systems not noted in ROS Statement are negative. 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 Hx tachycardia, Diet controlled DM. Uses CPAP, Hx esophageal spasms, hx H pylori. Neurologic tremors, fatty liver, en larged prostate, frequent night time urination. Hx sinus problems and asthma, now resolved. Seasonal allergies. History of Any Multi-Drug Resistant Organisms: None Reported Past Surgical History: Adenoidectomy, Cholecystectomy, Ear Surgery, Heart Cat heterization, Orthopedic Surgery, Tonsillectomy Additional Past Surgical History / Comment(s): ORIF rt foot, Cervical Fusion C6- C7, 2011, Sinus Surgery, EGD. Past Anesthesia/Blood Transfusion Reactions: Previous Problems w/ Anesthesia, Postoperative Nausea & Vomiting (PONV) Additional Past Anesthesia/Blood Transfusion Reaction / Comment(s): "Aspirated and went into cardiac arrest after neck fusion surgery after adm. to floor from his surgery. States he is not sure if he aspirated or not. States he was in ICU for about one month with multiple problems. States he needed rehab after his hospitalization. Past Psychological History: Anxiety Smoking Status: Never smoker Past Alcohol Use History: None Reported Past Drug Use History: None Reported - Past Family History Father Family Medical History: Cancer, Diabetes Mellitus, Deep Vein Thrombosis (DVT) Additional Family Medical History / Comment(s): Skin cancer. Mother Family Medical History: Diabetes Mellitus, Deep Vein Thrombosis (DVT) Brother(s) Family Medical History: No Reported History Sister(s) Family Medical History: No Reported History Daughter(s) Family Medical History: No Reported History Son(s) Family Medical History: No Reported History General Exam Limitations: no limitations General appearance: alert, in no apparent distress Head exam: Present: atraumatic, normocephalic Eye exam: Present: normal appearance ENT exam: Present: normal exam Neck exam: Present: normal inspection. Absent: tenderness, meningismus Respiratory exam: Present: normal lung sounds bilaterally. Absent: respiratory distress, wheezes Cardiovascular Exam: Present: regular rate, normal rhythm GI/Abdominal exam: Present: soft. Absent: distended, tenderness, guarding, rebound Extremities exam: Present: normal inspection, normal capillary refill. Absent: pedal edema, calf tenderness Neurological exam: Present: alert, oriented X3, CN II-XII intact Psychiatric exam: Present: normal affect, normal mood Skin exam: Present: warm, dry, intact. Absent: cyanosis, diaphoretic Course Vital Signs 12/03/23 12/03/23 12/03/23 10:55 11:54 14:00 Temperature 98 F Pulse Rate 90 92 79 Respiratory 22 18 18 Rate Blood Pressure 172/102 144/95 130/77 O2 Sat by Pulse 99 95 95 Oximetry Medical Decision Making - Medical Decision Making Was pt. sent in by a medical professional or institution (EF[employer] Wei, METAL BED ASSEMBLER, urgent care, hospital, or residential...) When possible be specific @ -No Did you speak to anyone other than the patient for history (EMS, parent, family, police, friend...)? What history was obtained from this source @ -No Did you review nursing and triage notes (agree or disagree)? Why? @ -I reviewed and agree with nursing and triage notes Were old charts reviewed (outside hosp., previous admission, EMS record, old EKG, old radiological studies, urgent care reports/EKG's, residential records)? Report findings @ -No old charts were reviewed Differential Chest Pain: Stable Angina, Unstable Angina, STEMI, NSTEMI Aortic Dissection, Pneumothorax, Musculoskeletal, Esophageal Spasm GERD, Cholecystitis, Pancreatitis, Zoster, this is not meant to be an all-inclusive list. EKG interpreted by me (3pts min.). @ -[Sinus rhythm rate of 96, FL interval 152, QRS duration 88, QTc [address] segment elevation. X-rays interpreted by me (1pt min.). @ -Chest x-ray negative for acute cardiopulmonary findings. CT interpreted by me (1pt min.). @ -CT brain and soft tissue neck negative for acute abnormality. U/S interpreted by me (1pt. min.). @ -None done What testing was considered but not performed or refused? (CT, X-rays, U/S, labs)? Why? @ -None What meds were considered but not given or refused? Why? @ -None Did you discuss the management of the patient with other professionals (professionals i.e. DrJaycob, PA, METAL BED ASSEMBLER, lab, RT, psych nurse, social media campaign manager, retail administrative assistant, teacher, state patrol officer, dependency case manager)? Give summary @ -No Was smoking cessation discussed for >3mins.? @ -No Was critical care preformed (if so, how long)? @ -No Were there social determinants of health that impacted care today? How? (Homelessness, low income, unemployed, alcoholism, drug addiction, transportation, low edu. Level, literacy, decrease access to med. care, [facility], rehab)? @ -No Was there de-escalation of care discussed even if they declined (Discuss DNR or withdrawal of care, Hospice)? DNR status @ -No What co-morbidities impacted this encounter? (DM, HTN, Smoking, COPD, CAD, Cancer, CVA, ARF, Chemo, Hep., AIDS, mental health diagnosis, sleep apnea, morbid obesity)? @ -Diabetes Was patient admitted / discharged? Hospital course, mention meds given and route, prescriptions, significant lab abnormalities, going to OR and other pertinent info. @ -48-year-old male presenting with central chest discomfort which began yesterday. EKG is sinus rhythm without ST segment elevation. Chest x-ray is clear, no focal pneumonia, no pneumothorax. Patient has normal white blood cell count, mildly elevated hemoglobin. Normal CBC, normal CMP, negative D-dimer, negative initial troponin. Patient will be observed for serial cardiac enzymes, telemetry, cardiology consultation. Undiagnosed new problem with uncertain prognosis? @ -No Drug Therapy requiring intensive monitoring for toxicity (Heparin, Nitro, Insulin, Cardizem)? @ -No Were any procedures done? @ -No Diagnosis/symptom? @Chest pain Acute, or Chronic, or Acute on Chronic? @ -Acute Uncomplicated (without systemic symptoms) or Complicated (systemic symptoms)? @ -Default Side effects of treatment? @ -No Exacerbation, Progression, or Severe Exacerbation? @ -No Poses a threat to life or bodily function? How? (Chest pain, [place], [place], pneumonia, PE, COPD, DKA, ARF, appy, cholecystitis, CVA, Diverticulitis, Homicidal, Suicidal, threat to staff... and all critical care pts) @ -[Yes, chest pain - Lab Data Result diagrams: 12/03/23 11:10 12/03/23 11:10 Lab Results 12/03/23 12/03/23 12/03/23 Range/Units 11:10 11:10 11:10 WBC 8.0 (3.8-10.6) k/uL RBC 6.22 H (4.30-5.90) m/uL Hgb 17.6 H (13.0-17.5) gm/dL Hct 53.0 (39.0-53.0) % MCV 85.2 (80.0-100.0) fL MCH 28.3 (25.0-35.0) pg MCHC 33.2 (31.0-37.0) g/dL RDW 13.3 (11.5-15.5) % Plt Count 231 (150-450) k/uL MPV 8.3 Neutrophils % 44 % Lymphocytes % 45 % Monocytes % 6 % Eosinophils % 1 % Basophils % 1 % Neutrophils # 3.6 (1.3-7.7) k/uL Lymphocytes # 3.6 (1.0-4.8) k/uL Monocytes # 0.5 (0-1.0) k/uL Eosinophils # 0.1 (0-0.7) k/uL Basophils # 0.1 (0-0.2) k/uL PT 10.3 (10.0-12.5) sec INR 0.9 (<1.2) APTT 26.5 (22.0-30.0) sec D-Dimer 0.52 (<0.60) mg/L FEU Sodium 139 (137-145) mmol/L Potassium 4.4 (3.5-5.1) mmol/L Chloride 108 H (98-107) mmol/L Carbon Dioxide 24 (22-30) mmol/L Anion Gap 7 mmol/L BUN 10 (9-20) mg/dL Creatinine 0.66 (0.66-1.25) mg/dL Est GFR (CKD-EPI)AfAm >90 (>60 ml/min/1.73 sqM) Est GFR (CKD-EPI)NonAf >90 (>60 ml/min/1.73 sqM) Glucose 127 H (74-99) mg/dL Calcium 9.3 (8.4-10.2) mg/dL Magnesium 2.0 (1.6-2.3) mg/dL Total Bilirubin 0.6 (0.2-1.3) mg/dL AST 39 (17-59) U/L ALT 45 (4-49) U/L Alkaline Phosphatase 82 (38-126) U/L Troponin I (0.000-0.034) ng/mL NT-Pro-B Natriuret Pep <20 pg/mL Total Protein 7.5 (6.3-8.2) g/dL Albumin 4.5 (3.5-5.0) g/dL Lipase 113 (23-300) U/L Influenza Type A (PCR) (Not Detectd) Influenza Type B (PCR) (Not Detectd) RSV (PCR) (Not Detectd) SARS-CoV-2 (PCR) (Not Detectd) 12/03/23 12/03/23 12/03/23 Range/Units 11:10 11:10 14:17 WBC (3.8-10.6) k/uL RBC (4.30-5.90) m/uL Hgb (13.0-17.5) gm/dL Hct (39.0-53.0) % MCV (80.0-100.0) fL MCH (25.0-35.0) pg MCHC (31.0-37.0) g/dL RDW (11.5-15.5) % Plt Count (150-450) k/uL MPV Neutrophils % % Lymphocytes % % Monocytes % % Eosinophils % % Basophils % % Neutrophils # (1.3-7.7) k/uL Lymphocytes # (1.0-4.8) k/uL Monocytes # (0-1.0) k/uL Eosinophils # (0-0.7) k/uL Basophils # (0-0.2) k/uL PT (10.0-12.5) sec INR (<1.2) APTT (22.0-30.0) sec D-Dimer (<0.60) mg/L FEU Sodium (137-145) mmol/L Potassium (3.5-5.1) mmol/L Chloride (98-107) mmol/L Carbon Dioxide (22-30) mmol/L Anion Gap mmol/L BUN (9-20) mg/dL Creatinine (0.66-1.25) mg/dL Est GFR (CKD-EPI)AfAm (>60 ml/min/1.73 sqM) Est GFR (CKD-EPI)NonAf (>60 ml/min/1.73 sqM) Glucose (74-99) mg/dL Calcium (8.4-10.2) mg/dL Magnesium (1.6-2.3) mg/dL Total Bilirubin (0.2-1.3) mg/dL AST (17-59) U/L ALT (4-49) U/L Alkaline Phosphatase (38-126) U/L Troponin I <0.012 0.023 (0.000-0.034) ng/mL NT-Pro-B Natriuret Pep pg/mL Total Protein (6.3-8.2) g/dL Albumin (3.5-5.0) g/dL Lipase (23-300) U/L Influenza Type A (PCR) Not Detected (Not Detectd) Influenza Type B (PCR) Not Detected (Not Detectd) RSV (PCR) Not Detected (Not Detectd) SARS-CoV-2 (PCR) Not Detected (Not Detectd) Disposition Clinical Impression: Chest pain Disposition: ADMITTED IP TO THIS HOSP Condition: Stable Is patient prescribed a controlled substance at d/c from ED?: No Referrals: Gil Leyva [Primary Care Provider] - 1-2 days Time of Disposition: 14:59
--- NOTE | 2023-12-03 13:50 | CT ---
EXAMINATION TYPE: CT brain wo con DATE OF EXAM: 12/03/2023 COMPARISON: None HISTORY: Headache. CT DLP: [address] of the brain was performed. The ventricles, basal cisterns and sulci overlying the cerebral convexities demonstrate a normal appe arance. There is no evidence for intracranial hemorrhage or sulcal effacement. No mass effects are seen. Osseous calvarium is intact. If symptoms persist consider MRI as clinically warranted. IMPRESSION: 1. No acute intracranial process is seen at this time.
--- NOTE | 2023-12-03 13:54 | CT ---
EXAMINATION TYPE: CT soft tissue neck wo con DATE OF EXAM: 12/03/2023 COMPARISON: None HISTORY: Throat pain and swelling. CT DLP: 541.[address] of the neck was performed from the skull base through the lung apices. Left lo be Contrast limits evaluation. AIRWAY: The supraglottic, glottic, and subglottic portions of the airway appear patent and free of mass. SALIVARY GLANDS: The submandibular and parotid glands are free of mass or inflammatory process. THYROID GLAND: No nodules or masses seen. LYMPH NODES: No adenopathy seen greater than 1cm. LUNG APICES: No nodule or mass is seen. OTHER: Vascular structures are patent. No significant degenerative change of the cervical spine. N o abscess seen. IMPRESSION: No significant abnormality identified.
[2023-12-03] MEDS ORDERED: NALOXONE 0.4 MG/ML 1 ML VIAL IV PRN (14:57)
[2023-12-03] MEDS ORDERED: ONDANSETRON 4 MG/2 ML VIAL IVP PRN (14:57)
[2023-12-03] MEDS: ASPIRIN 325 MG TAB PO STA (15:13)
[2023-12-03] MEDS: HYDROmorphone 0.5 MG/0.5 ML SYRINGE IVP PRN (15:15)
[2023-12-04] MEDS ORDERED: NITROGLYCERIN SL TABS 0.4 MG TAB SUBLINGUAL PRN (04:31)
[2023-12-04] MEDS ORDERED: ALBUTEROL NEBULIZED 2.5 MG/3 ML INHALATION PRN (04:31)
--- NOTE | 2023-12-04 04:36 | P.HPIM ---
History of Present Illness This is a pleasant 48 years old male with past medical history of multiple medical problems as below. Patient is legally blind in both eyes Patient presents because of chest pain started last night felt like little pressure and heartburn rated about 4/10 Pain is in the middle of his chest radiating to the middle of the back Pain get worse with walking and better with rest Also patient has been complaining of from some mild headache and pain in his neck over the last month his noticed that he has swelling lumps in his neck thinking it is enlarged lymph nodes and its mildly tender. He also feels little dizzy but mild Patient himself is legally blind for example in his left eye he can see light and darkness but he cannot recognize the face of the person he looks at He denies any abdominal pain vomiting or diarrhea, no dysuria No weakness or numbness in his extremities He denies smoking alcohol or illicit drugs He has history of sleep apnea and he uses BiPAP at night. Review of Systems Review of systems CONSTITUTIONAL: No fever, no malaise, no fatigue. HEENT: No recent visual problems or hearing problems. Denied any sore throat. CARDIOVASCULAR: No orthopnea, PND, no palpitations, no syncope. PULMONARY: No shortness of breath, no cough, no hemoptysis. GASTROINTESTINAL: No diarrhea, no nausea, no vomiting, no abdominal pain. Normoactive bowel sounds. NEUROLOGICAL: No headaches, no weakness, no numbness. HEMATOLOGICAL: Denies any bleeding or petechiae. GENITOURINARY: Denies any burning micturition, frequency, or urgency. MUSCULOSKELETAL/RHEUMATOLOGICAL: Denies any joint pain, swelling, or any muscle pain. ENDOCRINE: Denies any polyuria or polydipsia. 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 Hx tachycardia, Diet controlled DM. Uses CPAP, Hx esophageal spasms, hx H pylori. Neurologic tremors, fatty liver, enlarged prostate, frequent night time urination. Hx sinus problems and asthma, now resolved. Seasonal allergies. History of Any Multi-Drug Resistant Organisms: None Reported Past Surgical History: Adenoidectomy, Cholecystectomy, Ear Surgery, Heart C atheterization, Orthopedic Surgery, Tonsillectomy Additional Past Surgical History / Comment(s): ORIF rt foot, Cervical Fusion C6- C7, 2012, Sinus Surgery, EGD. Past Anesthesia/Blood Transfusion Reactions: Previous Problems w/ Anesthesia, Postoperative Nausea & Vomiting (PONV) Additional Past Anesthesia/Blood Transfusion Reaction / Comment(s): "Aspirated and went into cardiac arrest after neck fusion surgery after adm. to floor from his surgery. States he is not sure if he aspirated or not. States he was in ICU for about one month with multiple problems. States he needed rehab after his hospitalization. Past Psychological History: Anxiety Smoking Status: Never smoker Past Alcohol Use History: None Reported Past Drug Use History: None Reported - Past Family History Father Family Medical History: Cancer, Diabetes Mellitus, Deep Vein Thrombosis (DVT) Additional Family Medical History / Comment(s): Skin cancer. Mother Family Medical History: Diabetes Mellitus, Deep Vein Thrombosis (DVT) Brother(s) Family Medical History: No Reported History Sister(s) Family Medical History: No Reported History Daughter(s) Family Medical History: No Reported History Son(s) Family Medical History: No Reported History Medications and Allergies Home Medications Medication Instructions Recorded Confirmed Type Aspirin EC [Ecotrin Low Dose] 81 mg PO HS 02/28/16 12/03/23 History Nitroglycerin Sl Tabs [Nitrostat] 0.4 mg SUBLINGUAL Q5M PRN 02/28/16 12/03/23 History Losartan Potassium 50 mg PO HS 03/23/18 12/03/23 History Albuterol Inhaler [Ventolin Hfa 2 puff INHALATION RT-Q6H PRN 07/01/22 12/03/23 History Inhaler] Fish Oil/Dha/Epa [Fish Oil 1,200 1 cap PO HS 12/03/23 12/03/23 History mg Fish Oil] Fluticasone Nasal [place] [Flonase 1 - 2 spray EA NOSTRIL BID PRN 12/03/23 12/03/23 History Nasal [place]] Metoprolol Succinate (ER) [Toprol 50 mg PO DIRECTED 12/03/23 12/03/23 History Xl] Multivitamins, Thera [Multivitamin 1 tab PO HS 12/03/23 12/03/23 History (formulary)] Tamsulosin [Flomax] 0.4 mg PO HS 12/03/23 12/03/23 History Ubidecarenone [Coenzyme Q10] 100 mg PO HS 12/03/23 12/03/23 History tadalafiL 20 mg PO Q48H 12/03/23 12/03/23 History Allergies Allergy/AdvReac Type Severity Reaction Status Date / Time Iodinated Contrast Media Allergy high BP Verified 12/03/23 13:36 [Iodinated Contrast Media - Oral and] Penicillins Allergy Rash/Hives Verified 12/03/23 13:36 Sulfa (Sulfonamide Allergy Unknown Verified 12/03/23 13:36 Antibiotics) Childhood Physical Exam Vitals: Vital Signs Temp Pulse Resp BP Pulse Ox 12/03/23 14:00 79 18 130/77 95 12/03/23 11:54 92 18 144/95 95 12/03/23 10:55 98 F 90 22 172/102 99 Intake and Output 12/03/23 12/03/23 12/03/23 06:59 14:59 22:59 Other: Weight 113.398 kg GENERAL: The patient is alert and oriented x3, not in any acute distress. Well developed, well nourished. -HEENT: Pupils are round and equally reacting to light. EOMI. No scleral icterus. No conjunctival pallor. Normocephalic, atraumatic. No pharyngeal erythema. No thyromegaly. Patient legally blind -Patient has moderately enlarged lumps on his left side of the neck, mildly tender, located below his left ear and left side of the neck CARDIOVASCULAR: S1 and S2 present. No murmurs, rubs, or gallops. PULMONARY: Chest is clear to auscultation, no wheezing , no crackles. ABDOMEN: Soft, nontender, nondistended, normoactive bowel sounds. No palpable organomegaly. MUSCULOSKELETAL: No joint swelling or deformity. EXTREMITIES: No cyanosis, clubbing, or pedal edema. NEUROLOGICAL: Gross neurological examination did not reveal any focal deficits. SKIN: No rashes. no petechiae. Results CBC & Chem 7: 12/03/23 11:10 12/03/23 11:10 Labs: Abnormal Lab Results - Last 24 Hours (Table) 12/03/23 12/03/23 Range/Units 11:10 11:10 RBC 6.22 H (4.30-5.90) m/uL Hgb 17.6 H (13.0-17.5) gm/dL Chloride 108 H (98-107) mmol/L Glucose 127 H (74-99) mg/dL Assessment and Plan Assessment: Chest pain WITH exertion suspicious for angina, rule out acute coronary syndrome Enlarged mildly tender lumps in his neck mainly on the left side with mild dizziness and headache x 1 month, rule out cervical lymphadenopathy Patient is legally blind Diabetes mellitus Obstructive sleep apnea Diabetes mellitus History of fatty liver Enlarged prostate History of asthma, currently not an active issue Plan: Continue with aspirin 81 mg Nitroglycerin sublingual as needed Cardiology consult Will check CT of the head and neck to evaluate for soft tissue swelling Start hydration with normal saline 75 mL/h DVT prophylaxis subcutaneous heparin GI prophylaxis Pepcid Further recommendation based on the patient course Prognosis is guarded
[2023-12-04] MEDS: SODIUM CHLORIDE 0.9% 1,000 ML IV SCH (05:38)
[2023-12-04] MEDS ORDERED: DOBUTamine DRIP for NUC MED 500 MG in DEXTROSE/WATER 1 250ML.BAG IV PRN (07:44)
[2023-12-04] MEDS: HEPARIN SODIUM,PORCINE 5,000 UNIT/ML 1 ML VIAL SQ SCH (09:16)
[2023-12-04] MEDS: FAMOTIDINE 20 MG/2 ML VIAL IV SCH (09:16)
[2023-12-04 09:31] VITALS: RESP 16
[2023-12-04] MEDS ORDERED: DOBUTamine DRIP for NUC MED 500 MG/250 ML BAG IV ONE (10:35)
--- NOTE | 2023-12-04 10:47 | P.CRDCN ---
History of Present Illness Consult date: 12/04/23 Consult reason: chest pain History of present illness: History of present illness: This is a 48-year-old male patient of Dr. 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 We have been asked to evaluate the patient for chest pain. Patient states that he was at [employer] and developed dizziness and chest pressure. He went home and tried to relax and then he developed a headache on the left side as well as jaw pain. Patient also developed back pain when he woke up and he still had the chest pressure with deep breathing. He states he is never had this chest pain before. He has had it for a while but more intense now. The pain does worsen when he walks and he takes a deep breath. He is normally very active. He states the pain in his back is sharp. He denies any cough, sputum p roduction, edema. He denies having any palpitations no syncopal episodes. He denies any blood in his stool or urine. No history of stroke or CVA. He does relate he had a cardiac arrest in 2011 secondary to aspiration following of cervical spine surgery. EKG sinus rhythm with no acute ST-T wave changes. Chest x-ray: Strandy left basilar atelectasis CAT scan of the brain: No acute findings CT of the soft tissue of the neck showed no abnormality. Troponin negative x 3. Hemoglobin 17.6. D-dimer 0.52. Creatinine 0.66. Blood sugar 127. BNP less than 20. Influenza A, influenza B, COVID-19, RSV not detected. Home cardiac medications: Aspirin 81 mg daily, fish oil daily, losartan 50 mg at bedtime, Toprol XL 50 mg at bedtime, Nitrostat as needed. Cardiac catheterization performed 10/11/2013 revealed right dominant system with no significant disease, normal LV EF, normal filling pressures. Echocardiogram performed in the office on 10/09/2022 revealed EF 55%, no pulmonary hypertension, no right ventricular enlargement. Lexiscan Cardiolite stress test performed 10/09/2022 revealed EF of 55%, no ischemia. Review Of Systems: At the time of my exam: CONSTITUTIONAL: Denies fever or chills. HEENT: Denies blurred vision, vision changes, or eye pain. Denies hemoptysis CARDIOVASCULAR: Denies chest pain. Denies orthopnea. Denies PND. Denies palpitations RESPIRATORY: Denies shortness of breath. GASTROINTESTINAL: Denies abdominal pain. Denies nausea or vomiting. HEMATOLOGIC: Denies bleeding disorders. GENITOURINARY: Denies any blood in urine. SKIN: Denies pruitis. Denies rash. Physical examination: Gen: This is a 48-year-old male in no acute distress VS: reviewed, blood pressure 129/77, heart rate 76, pulse ox 98% on room air. HEENT: Head is atraumatic, normocephalic. Pupils equal, round. Sclerae is anicteric. NECK: Supple. No JVD. LUNGS: Clear to auscultation. No wheezes or rhonchi. No intercostal retractions. HEART: Regular rate and rhythm. No murmur. ABDOMEN: Soft No tenderness. EXTREMITIES: No pedal edema. No calf tenderness. NEUROLOGICAL: Patient is awake, alert and oriented x3. Assessment: Atypical chest pain, acute coronary syndrome ruled out Hypertension Hyperlipidemia Family history of premature coronary artery disease Obstructive sleep apnea Plan: Resume patient's home cardiac medications Obtain dobutamine stress test Obtain 2-D echocardiogram and Doppler study to assess cardiac structure and function If testing is unremarkable, patient is cleared for discharge May follow-up in the office with Dr. WYATT Bolden in 1 week. Thank you kindly for this consultation. Nurse practitioner note has been reviewed, I agree with documented findings and plan of care. Patient was seen and examined. Past Medical History Past Medical History: Asthma, Chest Pain / Angina, Diabetes Mellitus, Eye Disorder, GERD/Reflux, Hypertension, Liver Disease, Neurologic Disorder, Pneumonia, Prostate Disorder, Sleep Apnea/CPAP/BIPAP Additional Past Medical History / Comment(s): Blind bilaterally (sees light only) x-link retinitis pigmatosis. Hx tachycardia, Diet controlled DM. Uses CPAP, Hx esophageal spasms, hx H pylori. Neurologic tremors, fatty liver, enlarged prostate, frequent night time urination. Hx sinus problems and asthma, now resolved. Seasonal allergies. History of Any Multi-Drug Resistant Organisms: None Reported Past Surgical History: Adenoidectomy, Cholecystectomy, Ear Surgery, Heart Catheterization, Orthopedic Surgery, Tonsillectomy Additional Past Surgical History / Comment(s): ORIF rt foot, Cervical Fusion C6- C7, 2012, Sinus Surgery, EGD. Past Anesthesia/Blood Transfusion Reactions: Previous Problems w/ Anesthesia, Postoperative Nausea & Vomiting (PONV) Additional Past Anesthesia/Blood Transfusion Reaction / Comment(s): "Aspirated and went into cardiac arrest after neck fusion surgery after adm. to floor from his surgery. States he is not sure if he aspirated or not. States he was in ICU for about one month with multiple problems. States he needed rehab after his hospitalization. Past Psychological History: Anxiety Smoking Status: Never smoker Past Alcohol Use History: None Reported Past Drug Use History: None Reported - Past Family History Father Family Medical History: Cancer, Diabetes Mellitus, Deep Vein Thrombosis (DVT) Additional Family Medical History / Comment(s): Skin cancer. Mother Family Medical History: Diabetes Mellitus, Deep Vein Thrombosis (DVT) Brother(s) Family Medical History: No Reported History Sister(s) Family Medical History: No Reported History Daughter(s) Family Medical History: No Reported History Son(s) Family Medical History: No Reported History Medications and Allergies Home Medications Medication Instructions Recorded Confirmed Type Aspirin EC [Ecotrin Low Dose] 81 mg PO HS 02/28/16 12/03/23 History Nitroglycerin Sl Tabs [Nitrostat] 0.4 mg SUBLINGUAL Q5M PRN 02/28/16 12/03/23 History Losartan Potassium 50 mg PO HS 03/23/18 12/03/23 History Albuterol Inhaler [Ventolin Hfa 2 puff INHALATION RT-Q6H PRN 07/01/22 12/03/23 History Inhaler] Fish Oil/Dha/Epa [Fish Oil 1,200 1 cap PO HS 12/03/23 12/03/23 History mg Fish Oil] Fluticasone Nasal Allen [Flonase 1 - 2 spray EA NOSTRIL BID PRN 12/03/23 12/03/23 History Nasal Allen] Metoprolol Succinate (ER) [Toprol 50 mg PO DIRECTED 12/03/23 12/03/23 History Xl] Multivitamins, Thera [Multivitamin 1 tab PO HS 12/03/23 12/03/23 History (formulary)] Tamsulosin [Flomax] 0.4 mg PO HS 12/03/23 12/03/23 History Ubidecarenone [Coenzyme Q10] 100 mg PO HS 12/03/23 12/03/23 History tadalafiL 20 mg PO Q48H 12/03/23 12/03/23 History Allergies Allergy/AdvReac Type Severity Reaction Status Date / Time Iodinated Contrast Media Allergy high BP Verified 12/03/23 13:36 [Iodinated Contrast Media - Oral and] Penicillins Allergy Rash/Hives Verified 12/03/23 13:36 Sulfa (Sulfonamide Allergy Unknown Verified 12/03/23 13:36 Antibiotics) Childhood Physical Exam Vitals: Vital Signs Temp Pulse Pulse Resp BP BP Pulse Ox 12/04/23 02:00 97.6 F 76 129/77 98 12/03/23 22:41 97.5 F L 97 12/03/23 21:00 98.0 F 87 15 136/93 96 12/03/23 17:39 98.6 F 81 16 121/79 97 12/03/23 14:00 79 18 130/77 95 12/03/23 11:54 92 18 144/95 95 12/03/23 10:55 98 F 90 22 172/102 99 Intake and Output 12/03/23 12/04/23 12/04/23 22:59 06:59 14:59 Other: # Voids 1 1 Weight 113.398 kg Results 12/03/23 11:10 12/03/23 11:10 Cardiac Enzymes 12/03/23 12/03/23 12/03/23 Range/Units 11:10 11:10 14:17 AST 39 (17-59) U/L Troponin I <0.012 0.023 (0.000-0.034) ng/mL 12/03/23 Range/Units 16:58 AST (17-59) U/L Troponin I <0.012 (0.000-0.034) ng/mL Coagulation 12/03/23 Range/Units 11:10 PT 10.3 (10.0-12.5) sec APTT 26.5 (22.0-30.0) sec CBC 12/03/23 Range/Units 11:10 WBC 8.0 (3.8-10.6) k/uL RBC 6.22 H (4.30-5.90) m/uL Hgb 17.6 H (13.0-17.5) gm/dL Hct 53.0 (39.0-53.0) % Plt Count 231 (150-450) k/uL Comprehensive Metabolic Panel 12/03/23 Range/Units 11:10 Sodium 139 (137-145) mmol/L Potassium 4.4 (3.5-5.1) mmol/L Chloride 108 H (98-107) mmol/L Carbon Dioxide 24 (22-30) mmol/L BUN 10 (9-20) mg/dL Creatinine 0.66 (0.66-1.25) mg/dL Glucose 127 H (74-99) mg/dL Calcium 9.3 (8.4-10.2) mg/dL AST 39 (17-59) U/L ALT 45 (4-49) U/L Alkaline Phosphatase 82 (38-126) U/L Total Protein 7.5 (6.3-8.2) g/dL Albumin 4.5 (3.5-5.0) g/dL Current Medications Generic Name Dose Route Start Last Admin Trade Name Freq PRN Reason Stop Dose Admin Acetaminophen 650 mg 12/03/23 14:57 Acetaminophen Tab 325 Mg Tab PO Q6HR PRN Mild Pain or Fever > 100.5 Albuterol Sulfate 2.5 mg 12/04/23 04:31 Albuterol Nebulized 2.5 Mg/3 Ml INHALATION RT-Q6H PRN Shortness Of Breath Aspirin 81 mg 12/04/23 21:00 Aspirin 81 Mg PO HS ROSARIO Famotidine 20 mg 12/04/23 09:00 Famotidine 20 Mg/2 Ml Vial IV Q12HR ROSARIO Heparin Sodium (Porcine) 5,000 unit 12/04/23 09:00 Heparin Sodium,Porcine 5,000 Unit/Ml 1 Ml Vial SQ Q12HR ROSARIO Hydromorphone HCl 0.5 mg 12/03/23 14:57 12/03/23 21:27 Hydromorphone 0.5 Mg/0.5 Ml Syringe IVP 0.5 mg Q3HR PRN Administration Moderate Pain (Scale 4 to 6) Sodium Chloride 1,000 mls @ 100 mls/hr 12/04/23 04:45 12/04/23 05:38 Saline 0.9% IV 12/05/23 04:46 100 mls/hr .Q10H ROSARIO Administration Losartan Potassium 50 mg 12/04/23 21:00 Losartan 50 Mg Tab PO HS ROSARIO Metoprolol Succinate 50 mg 12/04/23 21:00 Metoprolol Succinate (Er) 50 Mg Tab.Er.24h PO HS ROSARIO Naloxone HCl 0.2 mg 12/03/23 14:57 Naloxone 0.4 Mg/Ml 1 Ml Vial IV Q2M PRN Opioid Reversal Nitroglycerin 0.4 mg 12/04/23 04:31 Nitroglycerin Sl Tabs 0.4 Mg Tab SUBLINGUAL Q5M PRN Chest Pain Ondansetron HCl 4 mg 12/03/23 14:57 Ondansetron 4 Mg/2 Ml Vial IVP Q8HR PRN Nausea And Vomiting Tamsulosin HCl 0.4 mg 12/04/23 21:00 Tamsulosin 0.4 Mg Cap.Er.24h PO HS [facility] Intake and Output 12/03/23 12/04/23 12/04/23 22:59 06:59 14:59 Other: # Voids 1 1 Weight 113.398 kg 12/03/23 11:10 12/03/23 11:10
[2023-12-04] MEDS: ACETAMINOPHEN TAB 325 MG TAB PO PRN (12:25)
--- NOTE | 2023-12-04 12:49 | CA ---
Transthoracic Echo Report Name: Kd Cuevas Age: 48 Gender: M : 1975 Exam Date: 12/04/2023 10:48 Exam Location: [place] [facility] Ht (in): 72 Wt (lb): 250 Ordering Physician: Dary Butler Attending/Referring Phys: [id number], Carrie Broke Beater Operator Elana Porras, RD Procedure CPT: Indications: LVF Cardiac Hx: Technical Quality: Technically difficult study Contrast 1: Definity Total Dose (mL): 2 Contrast 2: Total Dose (mL): MEASUREMENTS (Male / Female) Normal Values 2D ECHO LV Diastolic Diameter PLAX 4.1 cm 4.2 - 5.9 / 3.9 - 5.3 cm LV Systolic Diameter PLAX 3.0 cm IVS Diastolic Thickness 1.3 cm 0.6 - 1.0 / 0.6 - 0.9 cm LVPW Diastolic Thickness 1.2 cm 0.6 - 1.0 / 0.6 - 0.9 cm LV Relative Wall Thickness 0.6 RV Internal Dim ED PLAX 2.5 cm LA Systolic Diameter LX 3.4 cm 3.0 - 4.0 / 2.7 - 3.8 cm LA Volume 43.5 cm??? 18 - 58 / 22 - 52 cm??? LA Volume Index 17.9 cm???/m??? 16 - 28 cm???/m??? M-MODE Aortic Root Diameter MM 3.0 cm LA Systolic Diameter MM 3.5 cm LA Ao Ratio MM 1.2 AV Cusp Separation MM 2.3 cm DOPPLER MV Area PHT 2.6 cm??? Mitral E Point Velocity 80.3 cm/s Mitral A Point Velocity 85.9 cm/s Mitral E to A Ratio 0.9 MV Deceleration Time 289.4 ms TR Peak Velocity 233.7 cm/s TR Peak Gradient 21.9 mmHg FINDINGS Left Ventricle Left ventricular ejection fraction is estimated at 55-60 %. Mildly increased septal wall thickness. Normal left ventricular wall motion. No obvious regional wall motion abnormalities. Left ventricular cavity size normal. Right Ventricle Right ventricle not well visualized. Right ventricular systolic pressure within normal limits. Right Atrium Normal right atrial size. Left Atrium Normal left atrial size. Mitral Valve Structurally normal mitral valve. Trace mitral regurgitation. Aortic Valve Trileaflet aortic valve. No aortic valve stenosis or regurgitation. Tricuspid Valve Structurally normal tricuspid valve. No tricuspid stenosis. Trace tricuspid regurgitation. Pulmonic Valve No pulmonic stenosis. Trace pulmonic regurgitation.pulmonic valve not well visualized. Pericardium No pericardial or pleural effusion. Aorta Normal size aortic root and proximal ascending aorta. CONCLUSIONS Technically difficult study. Definity ECHO contrast used for improved visualization of the endocardial borders (inadequate visualization of two or more contiguous segments). Normal left ventricular size and systolic function Limited Doppler study with trace mitral and tricuspid regurgitation Previewed by: Dr. Jadiel Lozano MD (Electronically Signed) Final Date: 04 Dec 2023 12:48
--- NOTE | 2023-12-04 12:54 | CA ---
Dobutamine Stress Echocardiogram Report Kd Cuevas Age: 48 Gender: M : 1975 Exam Date: 12/04/2023 10:19 Exam Location: [facility] Ordering Physician: Dary Butler Referring Physician: [id number] Hothouse Worker: Baldomero Marino Technologist: Ht (in): 72 Wt (lb): 250 Procedure CPT: Indication: Chest Pain ICD-9 Codes: Rhythm: Patient History: Cardiac Medications: SEE CHART Medications in past 24 hours: Contrast: Definity Total Dose (mL): 2 Stress Results Protocol: Dobutamine Peak Dose (???g/kg/min): 30 Duration (min:sec): Atropine:(mg) None Target HR: 146 Double Product: [id number] Resting HR: 92 Resting BP: 150 / 94 Peak HR: 147 Peak BP: 187 / 85 Max Predicted HR: 172 85 % Max Predicted HR Stress Summary: The patient's target heart rate was achieved. BP Response: Normal Reason for Termination: Exceeded target heart rate (85% max predicted) Cardiac Symptoms: SEVERE HEAD PRESSURE ECG Analysis Resting EKG: Normal sinus rhythm, normal ECG Stress EKG: No abnormal ST/T wave changes with exercise Arrhythmia: None Echo Analysis Base Echo Analysis: Normal resting echocardiogram. Low Echo Anaylsis: Normal wall thickening and motion Peak Echo Analysis: Normal wall augmentation Recovery Echo: Normal ventricular systolic function with motion MEASUREMENTS (Male/Female) Normal Values CONCLUSIONS 1. Normal electrocardiographic response to dobutamine infusion 2. Normal stress echocardiogram with no evidence of stress- induced ischemia Dr. Jadiel Lozano MD (Electronically Signed) Final Date: 04 Dec 2023 12:53
[2023-12-04 16:09] VITALS: BP 125/84; PULSE 83; TEMP 98.2
[2023-12-04] MEDS ORDERED: ASPIRIN 81 MG PO SCH (21:00)
[2023-12-04] MEDS ORDERED: METOPROLOL SUCCINATE (ER) 50 MG TAB.ER.24H PO SCH (21:00)
[2023-12-04] MEDS ORDERED: NON FORMULARY DRUG (Fish Oil/Dha/Epa [Fish Oil 1,200 Mg Fish Oil] 1 EACH Capsule) PO SCH (21:00)
[2023-12-04] MEDS ORDERED: LOSARTAN 50 MG TAB PO SCH (21:00)
[2023-12-04] MEDS ORDERED: TAMSULOSIN 0.4 MG CAP.ER.24H PO SCH (21:00)
--- NOTE | 2023-12-18 17:54 | P.PN ---
Subjective Please consider this note as discharge summary Diagnoses: -Chest pain WITH exertion suspicious for angina,acute coronary syndrome has been ruled out and cleared for discharge by violin teacher -Enlarged mildly tender lumps in his neck mainly on the left side with mild dizziness and headache x 1 month, rule out cervical lymphadenopathy. CT of the neck and brain was negative however patient still referred to outpatient follow- up for further recommendations -Patient is legally blind -Diabetes mellitus -Obstructive sleep apnea -Diabetes mellitus -History of fatty liver -Enlarged prostate -History of asthma, currently not an active issue Hospital course: This is a pleasant 48 years old male with past medical history of multiple medical problems as below. Patient is legally blind in both eyes Patient presents because of chest pain started last night felt like little pressure and heartburn rated about 4/10 Patient was evaluated by violin teacher. He had normal electrocardiogram response to dobutamine infusion with normal stress echocardiogram with no evidence of present use ischemia, as such patient was cleared for discharge by violin teacher Patient had also suspicion of cervical lymphadenopathy or some lump in the neck. However CT of the soft tissue of the neck and CT of the brain were negative for acute process I called the patient after discharge and talk to his over the phone, I given the contact information for rod cup filler/oncologist Dr. harrison as well as the contact information with the phone number and address for the surgeon Dr. Zapata. She currently took note of these recommendations and she confirming the contact for the above physicians and that they will follow-up in 7 to 10 days for further recommendation Problems and management plan were discussed with the patient and he verbalized understanding and acceptance Patient was found stable and can be discharged home in guarded prognosis however he needs follow-up as an outpatient. Patient was instructed to follow up with PCP Dr. Leyva within one week and patient agrees Patient was informed to follow-up with Dr. Bolden violin teacher on 12/08 and she agrees Also patient and were instructed to follow-up with rod cup filler/oncologist Dr. Corona and surgeon Dr. Zapata in 1 to 2 weeks after discharge and they agree Physical exam Gen: patient is a AAOx3, no distress CVS: S1-S2, RRR, no murmur Lungs: B/L CTA, no wheezing Abdomen: soft, no distention, no tenderness, positive bowel sounds Extremity: no leg edema or induration Time spent more than 35 minutes Objective - Vital Signs Vital signs: Vital Signs Temp 97.6 F 12/04/23 07:20 Pulse 69 12/04/23 07:20 Resp 16 12/04/23 07:20 BP 133/81 12/04/23 07:20 Pulse Ox 98 12/04/23 07:20 FiO2 Intake & Output 12/03/23 12/04/23 12/04/23 18:59 06:59 18:59 Weight 113.398 kg Other: # Voids 1 - Labs CBC & Chem 7: 12/03/23 11:10 12/03/23 11:10
== END 2023-12-04 16:13 | disposition home or self-care (01) ==
LOC: EC 10:54 → 6NMEDSUR 14:58
PROVIDERS: ADMIT Internal Medicine; ATTEND Internal Medicine
DX: R07.89 Other chest pain (principal); I10 Essential (primary) hypertension; E11.9 Type 2 diabetes mellitus without complications; G47.33 Obstructive sleep apnea (adult) (pediatric); N40.0 Benign prostatic hyperplasia without lower urinary tract symptoms; J45.909 Unspecified asthma, uncomplicated; J98.11 Atelectasis; E78.5 Hyperlipidemia, unspecified; H35.52 Pigmentary retinal dystrophy; H54.8 Legal blindness, as defined in USA; K76.0 Fatty (change of) liver, not elsewhere classified; R51.9 Headache, unspecified; R12 Heartburn; M54.2 Cervicalgia; R68.84 Jaw pain; R42 Dizziness and giddiness; M54.9 Dorsalgia, unspecified; Z11.52 Encounter for screening for COVID-19; Z11.59 Encounter for screening for other viral diseases; Z79.82 Long term (current) use of aspirin; Z79.899 Other long term (current) drug therapy; Z88.0 Allergy status to penicillin; Z88.2 Allergy status to sulfonamides; Z91.041 Radiographic dye allergy status; Z86.74 Personal history of sudden cardiac arrest; Z82.49 Family history of ischemic heart disease and other diseases of the circulatory system
CPT/HCPCS: 96372; 96375 ×2; 96376; 96361; 96374; 99285; 36415; 93005; 85379; 83880; 80053; 83690; 83735; 84484; 85025; 85610; 85730; 87636; 71046; 70490; 70450; G0378 ×2; C8929; C8930; J1250; J1644; J3490; Q9957; J0131; J1170; 93306; 93351

== ENCOUNTER → 2024-04-22 | Outpatient (CLI) | payer MEDICARE ==
--- NOTE | 2024-04-23 11:28 | US ---
EXAMINATION TYPE: US thyroid st tissue head/neck DATE OF EXAM: 04/22/2024 COMPARISON: CT soft tissue neck 12/03/2023 CLINICAL INDICATION: Male, 48 years old with history of R59.1 ENLARGED LYMPH NODES; Bilateral submand ibular lumps x few years; patient denies any signs, symptoms, or relevant history TECHNIQUE: Grayscale and color Doppler imaging of the thyroid gland. FINDINGS: Lymph nodes seen at patients AOC Right = 1.8 x 1.0 x 1.6 cm; cortex = 0.4 cm Left = 1.3 x 1.1 x 1.5 cm; cortex = 0.4 cm IMPRESSIONS: 1. Enlarged left submandibular lymph nodes with thickened cortex. Consider follow-up CT soft tissue n yohana for reevaluation. [facility], Workstation: [email or web address], 04/23/2024 11:26 AM
== END | disposition home or self-care (01) ==
LOC: RADUSWWP 11:49
PROVIDERS: ATTEND Internal Medicine Geriatric Medicine
DX: R59.1 Generalized enlarged lymph nodes (principal)
CPT/HCPCS: 76536

== ENCOUNTER → 2024-05-06 | Outpatient (CLI) | payer MEDICARE ==
[2024-05-06 08:54] LABS: African American GFR (CKD) >90 (>60 ml/min/1.73 sqM); Blood Urea Nitrogen 12 mg/dL (9-20); Non-African American GFR(CKD) >90 (>60 ml/min/1.73 sqM)
--- NOTE | 2024-05-06 10:00 | CT ---
EXAMINATION TYPE: CT soft tissue neck w con CT DLP: 1756.9 mGycm, Automated exposure control for dose reduction was used. DATE OF EXAM: 05/06/2024 9:31 AM COMPARISON: None. CLINICAL INDICATION: Male, 48 years old with history of R59.1 GEN ENLARGED LYMPH NODES; PHH, Bilatera l enlarged lymph nodes TECHNIQUE: Standard enhanced CT of the neck. Axial sections with coronal and sagittal reformats were obtained. Contrast used:100 mL of Isovue 300 with IV Contrast, (None if empty) Oral contrast used: (None if empty) FINDINGS: Brain: Visualized portions are grossly unremarkable. Orbits: Unremarkable Sinuses: Grossly unremarkable. Spaces of the neck: Clear and symmetric. Palpable marker in the bilateral neck correlates to the subm andibular glands. No greater than 1.5 cm axis lymph nodes. Musculoskeletal: No acute osseous pathology. Fixation changes to the cervical spine with hardware int act. Lymph nodes: Multiple nonenlarged lymph nodes are seen along both anterior chains of the neck. Vascular structures: No significant abnormality. Thoracic Inlet/airway: Airway is patent. The lung apices are clear. Soft tissues/Thyroid: Thyroid and remainder of the soft tissues are unremarkable. Other: none. IMPRESSION Palpable markers correlate with submandibular glands. No suspicious lymphadenopathy or mass. [facility], , 05/06/2024 9:58 AM
== END | disposition home or self-care (01) ==
LOC: RADCTMAIN 08:02
PROVIDERS: ATTEND Internal Medicine Geriatric Medicine
DX: R59.1 Generalized enlarged lymph nodes (principal)
CPT/HCPCS: 36415; 70491; 82565; 84520

== ENCOUNTER → 2025-01-28 | Outpatient (CLI) | payer MEDICARE ==
[2025-01-28 13:39] LABS: HCT 46.7 % (39.6-50.0); HGB 15.3 g/dL (13.0-17.0); MCH 28.2 pg (27.0-32.0); MCHC 32.8 g/dL (32.0-37.0); MCV 86.2 FL (80.0-97.0); NRBC Per 100 WBC 0 X 10*3/uL (0.00-0.01); Platelet Count 251 X 10*3/uL (140-440); RBC 5.42 X 10*6/uL (4.40-5.60); RDW 13.2 % (11.5-14.5); WBC 6.35 X 10*3/uL (4.50-10.00)
[2025-01-28 13:40] LABS: Basophils # (A) 0.05 X 10*3/uL (0.00-0.10); Basophils % (A) 0.8 %; Eosinophils # (A) 0.08 X 10*3/uL (0.04-0.35); Eosinophils % (A) 1.3 %; Immature Grans, Automated 0.30 %; Lymphocytes # (A) 2.60 X 10*3/uL (0.90-5.00); Lymphocytes % (A) 40.9 %; Monocytes # (A) 0.59 X 10*3/uL (0.20-1.00); Monocytes % (A) 9.3 %; Neutrophils # (A) 3.01 X 10*3/uL (1.80-7.70); Neutrophils % (A) 47.4 %
[2025-01-28 13:49] LABS: ALT 35 U/L (10-49); AST 25 U/L (14-35); Albumin 4.4 g/dL (3.8-4.9); Albumin/Globulin Ratio 1.83 Ratio (1.60-3.17); Alkaline Phosphatase 77 U/L (41-126); Anion Gap 10.40 mmol/L (4.00-12.00); BUN/Creat Ratio 16.38 Ratio (12.00-20.00); Blood Urea Nitrogen 13.1 mg/dL (9.0-27.0); Calcium 9.3 mg/dL (8.7-10.3); Carbon Dioxide 23.6 mmol/L (21.6-31.8); Chloride 105 mmol/L (96-109); Cholesterol 133.00 mg/dL (0.00-200.00); Globulin 2.4 g/dL (1.6-3.3); Glucose 133 mg/dL (70-110); HDL Cholesterol 34.30 mg/dL (40.00-60.00); LDL Cholesterol,Calculated 67.5 mg/dL (0.0-131.0); Potassium 4.5 mmol/L (3.5-5.5); Prostate Specific Antigen 0.26 ng/mL (0.000-2.500); Sodium 139 mmol/L (135-145); Total Protein 6.8 g/dL (6.2-8.2); Triglycerides 156.00 mg/dL (0.00-149.00); VLDL Calculation 31.20 mg/dL (5.00-40.00)
== END | disposition home or self-care (01) ==
LOC: LABWHC1 08:46
PROVIDERS: ATTEND Internal Medicine Geriatric Medicine
DX: E78.2 Mixed hyperlipidemia (principal); E08.65 Diabetes mellitus due to underlying condition with hyperglycemia; N40.0 Benign prostatic hyperplasia without lower urinary tract symptoms
CPT/HCPCS: 36415; 80053; 80061; 83036; 84153; 84443; 85025